=== PATIENT | male | born 1970 | race American Indian/Alaskan Native ===

== ENCOUNTER 2016-09-20 04:45 | Inpatient (IN) | payer SELFPAY ==
[2016-09-20] MEDS ORDERED: Sodium Chloride 0.9% 1,000 ML IV ONE ×2 (05:01→05:17)
[2016-09-20] MEDS ORDERED: Sodium Bicarbonate (8.4%) 50 Meq Syringe IVP STA ×3 (05:03→05:49)
[2016-09-20 05:11] LABS: ABG ALLEN TEST POS; ABG MECHANICAL RATE 20; ATERIAL BLOOD GAS PEEP 5; DRAW SITE RR
[2016-09-20 05:21] LABS: LYMPH # 3.7 K/uL (1.0-4.3); MONO # 0.4 K/uL (0.0-0.8); NRBC % 0.2 % (0.0-2.0)
[2016-09-20 05:26] LABS: RBC URINE 31 /hpf (0-3); URINE BACTERIA FEW (<OCC); URINE BILIRUBIN NEGATIVE (NEGATIVE); URINE BLOOD NEGATIVE (NEGATIVE); URINE COLOR Yellow (YELLOW); URINE GLUCOSE (UA) NORMAL (Normal); URINE KETONE NEGATIVE (NEGATIVE); URINE LEUKOCYTE ESTERASE NEG Leu/uL (Negative); URINE PROTEIN 2+ mg/dL (NEGATIVE); URINE UROBILINOGEN NORMAL mg/dL (0.2-1.0); WBC URINE 8 /hpf (0-5)
[2016-09-20 05:32] LABS: BASO # 0.1 K/uL (0.0-0.2); BASO % 0.6 % (0.0-2.0); EOS % 0.5 % (0.0-4.0); LYMPH % 40.3 % (20.0-40.0); MEAN CELL VOLUME 104.4 fL (80.0-94.0); MEAN CORPUSCULAR HEMOGLOBIN 31.3 pg (27.0-31.0); MEAN PLATELET VOLUME 8.6 fL (7.2-11.7); RED CELL DISTRIBUTION WIDTH 15.2 % (11.5-14.5); WHITE BLOOD COUNT 9.2 K/uL (4.8-10.8)
[2016-09-20 05:35] LABS: INR 1.1
--- NOTE | 2016-09-20 05:56 | CP.PCM.HP ---
<Raiza South DO - Last Filed: 09/20/16 07:07> History of Present Illness - History of Present Illness History of Present Illness: Patient is a Carroll Mireles brought into the ER after being found down in the stairwell of an apartment complex. Patient was found only wearing a pair of shorts and underwear. Per EMS report patient was found with heroin and a needle in his pocket. Patient was given narcan in the field. CPR was initiated and epinephrine was given. Patient had ROSC and was intubated in the field. Patient is currently intubated and non-responsive. Present on Admission - Present on Admission Any Indicators Present on Admission: No Review of Systems - Review of Systems Systems not reviewed;Unavailable: Intubated Past Patient History - Past Social History Smoking Status: Unknown If Ever Smoked - PSYCHIATRIC Hx Substance Use: No (unknown) Meds Allergies/Adverse Reactions: Allergies Allergy/AdvReac Type Severity Reaction Status Date / Time Unobtainable Allergy Verified 09/20/16 05:00 Physical Exam - Constitutional Additional comments: intubated on ventilator - Eye Exam Additional comments: pupils non reactive - Respiratory Exam Respiratory Exam: Rhonchi Additional comments: vent sounds throughout coarse breath sounds from upper airway - Cardiovascular Exam Cardiovascular Exam: REGULAR RHYTHM - GI/Abdominal Exam GI & Abdominal Exam: Soft. absent: Distended, Normal Bowel Sounds - Exam Additional comments: shipley catheter - Skin Skin Exam: Normal Color Results - Vital Signs Recent Vital Signs: Last Vital Signs Temp 91.8 F L 09/20/16 05:01 Pulse 64 09/20/16 04:48 Resp 20 09/20/16 05:36 BP 75/30 L 09/20/16 04:48 Pulse Ox 100 09/20/16 05:36 - Labs Result Diagrams: 09/20/16 05:15 09/20/16 06:04 Labs: Laboratory Results - last 24 hr 09/20/16 09/20/16 05:05 05:15 WBC 9.2 RBC 3.55 L Hgb 11.1 L Hct 37.0 MCV 104.4 H MCH 31.3 H MCHC 30.0 L RDW 15.2 H Plt Count 116 L MPV 8.6 Neut % (Auto) 54.6 Lymph % (Auto) 40.3 H Catron % (Auto) 4.0 Eos % (Auto) 0.5 Baso % (Auto) 0.6 Neut # 5.1 Lymph # 3.7 Catron # 0.4 Eos # 0.0 Baso # 0.1 PT 12.6 H INR 1.1 APTT 37 H Puncture Site Rr pCO2 85 H* pO2 151 H HCO3 8.5 L* ABG pH 6.83 L* ABG Total CO2 16.8 L ABG O2 Saturation 98.7 H ABG Base Excess -21.1 L Sukhi Test Pos ABG Potassium 4.9 A-a O2 Difference 456.0 Respiratory Index 3.0 Sodium 141.0 Chloride 111.0 H Glucose 112 H Lactate 13.8 H* Mechanical Rate 20 FiO2 100.0 Tidal Volume 500 PEEP 5 Crit Value Called To Dr pathak/stephanier Crit Value Called By Saqib cardona/rt Crit Value Read Back Y Blood Gas Notified Time 515 Arterial Blood Potassium 4.9 Urine Color Yellow Urine Clarity Hazy Urine pH 5.0 Ur Specific [place] 1.025 Urine Protein 2+ H Urine Glucose (UA) Normal Urine Ketones Negative Urine Blood Negative Urine Nitrate Negative Urine Bilirubin Negative Urine Urobilinogen Normal Ur Leukocyte Esterase Neg Urine WBC (Auto) 8 H Urine RBC (Auto) 31 H Urine Bacteria Few H Urine Sperm (Auto) Few H Urine Opiates Screen Positive Urine Methadone Screen Negative Ur Barbiturates Screen Negative Ur Phencyclidine Scrn Negative Ur Amphetamines Screen Negative U Benzodiazepines Scrn Negative U Oth Cocaine Metabols Positive U Cannabinoids Screen Negative Assessment & Plan - Assessment and Plan (Free Text) Assessment: Patient is s/p cardiac arrest with lactic acidosis management per ICU: start bicarb and levophed drip, check CT of head <Erasmo Pascal P - Last Filed: 09/23/16 20:26> Results - Vital Signs Recent Vital Signs: Last Vital Signs Temp 96.8 F L 09/23/16 16:00 Pulse 84 09/23/16 19:00 Resp 24 09/23/16 19:00 BP 112/64 09/23/16 18:57 Pulse Ox 100 09/23/16 19:00 - Labs Result Diagrams: 09/23/16 12:05 09/23/16 18:19 Labs: Laboratory Results - last 24 hr 09/23/16 09/23/16 09/23/16 00:21 06:29 06:34 WBC RBC Hgb Hct MCV MCH MCHC RDW Plt Count MPV Neut % (Auto) Lymph % (Auto) Catron % (Auto) Eos % (Auto) Baso % (Auto) Neut # Lymph # Catron # Eos # Baso # Sodium 140 140 Potassium 3.7 3.5 L Chloride 106 107 Carbon Dioxide 24 24 Anion Gap 14 13 BUN 50 H 49 H Creatinine 4.8 H 4.6 H Est GFR ( Amer) 16 17 Est GFR (Non-Af Amer) 13 14 Random Glucose 169 H 170 H Lactic Acid 1.2 1.2 Calcium 7.3 L 7.3 L Magnesium 1.7 Total Bilirubin 4.1 H 4.2 H AST 952 H D 742 H D ALT 2807 H 2516 H Alkaline Phosphatase 108 105 Troponin I 0.2910 H* 0.2500 H* Total Protein 5.4 L 5.2 L Albumin 2.7 L 2.5 L Globulin 2.8 2.7 Albumin/Globulin Ratio 1.0 0.9 L 09/23/16 09/23/16 09/23/16 12:01 12:05 18:19 WBC 11.8 H RBC 3.32 L Hgb 10.2 L D Hct 31.7 L MCV 95.4 H MCH 30.7 MCHC 32.2 L RDW 14.5 Plt Count 52 L MPV 8.9 Neut % (Auto) 84.7 H Lymph % (Auto) 11.0 L Catron % (Auto) 3.5 Eos % (Auto) 0.7 Baso % (Auto) 0.1 Neut # 10.0 H Lymph # 1.3 Catron # 0.4 Eos # 0.1 Baso # 0.0 Sodium 140 142 Potassium 3.3 L 3.3 L Chloride 107 110 H Carbon Dioxide 23 20 L Anion Gap 13 15 BUN 48 H 49 H Creatinine 4.4 H 4.0 H Est GFR ( Amer) 18 20 Est GFR (Non-Af Amer) 15 16 Random Glucose 168 H 151 H Lactic Acid 1.2 Calcium 7.3 L 7.2 L Magnesium Total Bilirubin 4.1 H 3.7 H AST 637 H 512 H ALT 2152 H 1816 H Alkaline Phosphatase 104 95 Troponin I Total Protein 5.2 L 5.0 L Albumin 2.5 L 2.4 L Globulin 2.7 2.7 Albumin/Globulin Ratio 0.9 L 0.9 L Attending/Attestation - Attestation I have personally seen and examined this patient.: Yes I have fully participated in the care of the patient.: Yes I have reviewed all pertinent clinical information: Yes
--- NOTE | 2016-09-20 05:57 | C.PDOC ---
History Of Present Illness Pt was found unresponsive in the hallway of an apartment building. Upon EMS arrival, a bystandard was performing CPR. EMS found pt in Asystole. After intubation, Epinephrine and Narcan, ROSC was achieved. Time Seen by Provider: 09/20/16 04:53 Chief Complaint (Nursing): Cardiac Arrest History Per: EMS Reason For Code Blue: Full Arrest Circumstances: Brought To ED By EMS Arrest Witnessed By: By-stander (?) CPR Initiated Prior To MD Arrival?: Yes Down-Time Before ACLS: Unknown Treatment Initiated Prior To MD Arrival: Yes: CPR, BVM Ventilations, Intubation , IVF, ACLS Medication Initiation, IV Access Medications Given Prior To MD Arrival: Yes: Epinephrine, Other (Narcan) - Initial Findings Mentation: Unresponsive Respirations: None (Assisted) Pulse: Weak Past Medical History Reviewed: Historical Data, Nursing Documentation, Vital Signs Vital Signs: Last Vital Signs Temp 91.8 F L 09/20/16 05:01 Pulse 86 09/20/16 06:01 Resp 20 09/20/16 06:01 BP 83/36 L 09/20/16 06:01 Pulse Ox 100 09/20/16 06:01 - Medical History Other PMH: Unknown Family History: States: Unknown Family Hx - Social History Hx Alcohol Use: No (unknown) Hx Substance Use: No (unknown) - Immunization History Hx Tetanus Toxoid Vaccination: No Hx Influenza Vaccination: No Hx Pneumococcal Vaccination: No Review Of Systems Review Of Systems: ROS cannot be obtained secondary to pt's inabilty to answer questions. Physical Exam - Physical Exam Appears: Other (Unresponsive) Skin: Dry Head: Atraumatic Eye(s): bilateral: Abnormal Pupil (fixed and dilated, but equal.) Neck: Normal ROM, No Step Off Deformity, Supple Chest: Symmetrical, No Deformity Cardiovascular: Rhythm Regular Respiratory: Normal Breath Sounds (equal with bagging) Gastrointestinal/Abdominal: Soft, No Distention Extremity: No Deformity Neurological/Psych: No Response To Commands Pain Response: No Response To Pain ED Course And Treatment - Laboratory Results Result Diagrams: 09/20/16 05:15 Lab Interpretation: Abnormal Interpretation Of Abnormal: Severe respiratory and metabolic acidosis. ECG: Interpreted By Me, Viewed By Me ECG Rhythm: Sinus Rhythm, 1st Degree HB, Nonspecific Changes ECG Interpretation: Abnormal Rate From EC O2 Sat by Pulse Oximetry: 100 (on 100% O2 vent.) - Radiology CXR: Interpreted by Me, Viewed By Me CXR Interpretation: Yes: Other (ETT in place but needs to be pulled back 3cm. ) . No: Pnemothorax - Physician Consult Information Physician Contacted: Ward Nixon (ICU) Outcome Of Conversation: He accepted pt to ICU. Progress - Interventions Interventions:: Observation, Intravenous fluid, Oxygen - Medications Administered Intravenous: Other (Sodium Bicarb.) - Patient Status Patient status: Critical - Critical Care Citical Care: Excluding Proc Time Critical Care Time: 60 minutes - Continuity of Care Discussed patient case with:: ED Nurse, On-call PMD-pt unassigned Discussed pt. case with security sales consultant/specialty: Pulmonary/Crit. Care - Patient Plan Patient Plan: Admission, ICU Disposition Discussed With : Erasmo Pascal Comment: He accepted pt on hospitalist service. Doctor Will See Patient In The: Hospital - Disposition Disposition: HOSPITALIZED Disposition Time: 06:06 Condition: CRITICAL - Clinical Impression Clinical Impression: Cardiopulmonary arrest with successful resuscitation
[2016-09-20] MEDS ORDERED: Sodium Bicarbonate 8.4% 150 MEQ in Dextrose 5% In Water 1,000 ML IV STA (05:58)
[2016-09-20 06:20] LABS: CHLORIDE 103 mmol/L (98-107)
[2016-09-20 06:21] LABS: SODIUM 139 mmol/L (132-148)
[2016-09-20 06:23] LABS: ALB/GLOB RATIO 1.1 (1.0-2.1); ALKALINE PHOSPHATASE 72 U/L (38-126); ALT/SGPT 756 U/L (21-72); AST/SGOT 679 U/L (17-59); BILIRUBIN,TOTAL 0.4 mg/dL (0.2-1.3); BLOOD UREA NITROGEN 10 mg/dL (9-20); CARBON DIOXIDE 15 mmol/L (22-30); GFR AFRICAN-AMERICAN 51; GLUCOSE,RANDOM 103 mg/dL (75-110); TOTAL PROTEIN 5.2 g/dL (6.3-8.3)
[2016-09-20 06:24] LABS: ALCOHOL SERUM < 10 mg/dl (0-10); MAGNESIUM 2.8 mg/dL (1.6-2.3)
--- NOTE | 2016-09-20 06:27 | CP.PCM.CON ---
History of Present Illness - History of Present Illness History of Present Illness: patient is a 40-year-old male underwent medical history, admitted to the emergency room after sustaining a cardiac arrest, this is stated in the field, unknown cause, unclear etiology. Suspected drug overdose him a initially responded with the Narcaine. Patient now intubated. Unresponsive. Hypotensive, hypoxic as well as acidosis. Very highly elevated lactic acidosis. Multiple other history unavailable Review of Systems - Review of Systems All systems: reviewed and no additional remarkable complaints except Review of Systems: Patient is unresponsive intubated in the field. Further history is unavailable Past Patient History - Tetanus Immunizations Tetanus Immunization: Unknown - Past Social History Smoking Status: Unknown If Ever Smoked - PSYCHIATRIC Hx Substance Use: No (unknown) Meds Allergies/Adverse Reactions: Allergies Allergy/AdvReac Type Severity Reaction Status Date / Time Unobtainable Allergy Verified 09/20/16 05:00 - Medications Medications: Current Medications Norepinephrine Bitartrate 4 mg (/ Sodium Chloride) 254 mls @ 15.24 mls/hr IV .[id number] PRN; Protocol; 4 MCG/MIN PRN Reason: TITRATE PER MD ORDER Last Admin: 09/20/16 06:08 Dose: 15.24 mls/hr Sodium Bicarbonate 150 meq/ (Dextrose) 1,150 mls @ 1,000 mls/hr IV .[id number] STA Stop: 09/20/16 07:06 Physical Exam - Constitutional Additional comments: Patient is unresponsive, comatose. On ventilator. Not moving Results - Vital Signs Recent Vital Signs: Last Vital Signs Temp 91.8 F L 09/20/16 05:01 Pulse 86 09/20/16 06:01 Resp 20 09/20/16 06:01 BP 83/36 L 09/20/16 06:01 Pulse Ox 100 09/20/16 06:07 - Labs Result Diagrams: 09/20/16 05:15 Assessment & Plan (1) Cardiopulmonary arrest with successful resuscitation Assessment and Plan: Cardiomegaly arrest. Possible anoxic encephalopathy. Secondary to likely drug overdose. On ventilator. Severe acidosis, multiorgan failure. Very poor prognosis Admitted to ICU, resuscitation, possible hypothermia. Will follow the patient Status: Acute (2) Drug overdose Status: Acute
[2016-09-20] MEDS ORDERED: Atropine 0.4 mg/ml Inj (1 mL) IV STA (06:59)
[2016-09-20 07:00] LABS: POTASSIUM 6.7 mmol/L (3.6-5.2)
[2016-09-20] MEDS ORDERED: Calcium Gluconate 4.65 mEq/10 ml Inj IVP ONE ×2 (07:19→10:25)
[2016-09-20] MEDS ORDERED: (Novolin R) Insulin Human Regular 100 units/ml vial IV ONE ×2 (07:19→10:25)
[2016-09-20] MEDS ORDERED: Dextrose 50% SYRINGE Inj (50 ml) IV STA ×2 (07:19→10:25)
[2016-09-20 07:22] LABS: ABG MECHANICAL RATE 24; ATERIAL BLOOD GAS PEEP 5
[2016-09-20] MEDS: Sodium Chloride 0.9% 1,000 ML IV SCH ×2 (07:30→16:41)
--- NOTE | 2016-09-20 08:59 | RAD ---
HISTORY: post intubation bed 12 COMPARISON: No prior. FINDINGS: LUNGS: Endotracheal tube extending to the level of the najma. Retraction approximately 2 centimeter is recommended. NG tube extending into the stomach. Venous congestion. Additional probable external tubing and/or device projecting over the lower coco thoraces. PLEURA: As above. CARDIOVASCULAR: Normal. OSSEOUS STRUCTURES: No significant abnormalities. VISUALIZED UPPER ABDOMEN: Normal. OTHER FINDINGS: None. IMPRESSION: Endotracheal tube extending to the level of the najma. Retraction approximately 2 centimeter is recommended. NG tube extending into the stomach. Venous congestion. Additional probable external tubing and/or device projecting over the lower coco thoraces.
--- NOTE | 2016-09-20 09:15 | RAD ---
HISTORY: ETT pulled back 3cm. COMPARISON: Chest x-ray performed 09/20/16 TECHNIQUE: Chest, one view. FINDINGS: Examination limited by habitus, hypoinflation, and patient obliquity. External defibrillator pads project over the lingula/left lower lobe limiting evaluation. Endotracheal tube terminates approximately 5.3 cm above the najma. LUNGS: Mild venous congestion. No focal consolidation. Please note that chest x-ray has limited sensitivity for the detection of pulmonary masses. PLEURA: No significant pleural effusion identified. No definite pneumothorax . CARDIOVASCULAR: The cardiomediastinal silhouette appears enlarged. OSSEOUS STRUCTURES: No acute osseous abnormality identified. VISUALIZED UPPER ABDOMEN: Unremarkable. OTHER FINDINGS: None. IMPRESSION: External defibrillator pads project over the lingula/left lower lobe limiting evaluation. Endotracheal tube terminates 5.3 cm above the najma. Enlargement of the cardiomediastinal silhouette. Mild venous congestion.
--- NOTE | 2016-09-20 10:17 | CT ---
PROCEDURE: CT scan brain 09/20/2016 HISTORY: Status post cardiac arrest. Unresponsive. COMPARISON: No prior study available for comparison. Dated TECHNIQUE: Axial l computed tomography images were obtained through the head/brain without intravenous contrast. This CT exam was performed using one or more of the following dose reduction techniques: Automated exposure control, adjustment of the mA and/or kV according to patient size, and/or use of iterative reconstruction technique. Total exam DLP = 981.84 mGy-cm. Findings: Findings: The current study reveals subarachnoid hemorrhage within the basilar cisterns extending peripherally into the lateral and sylvian fissures and perimesencephalic cistern. Subarachnoid hemorrhage is also noted along interhemispheric fissures and tentorium. The small elliptical shaped density likely representing some localized subarachnoid hemorrhage within the anterior aspect of the suprasellar cistern extending into the anterior margin of the interhemispheric fissure however the possibility of a small anterior communicating artery aneurysm must be excluded. Followup MRI/ MRA of the brain recommended. There is diffuse cerebral edema with effacement of cerebral sulci and loss of corticomedullary distinction. Vague areas of low attenuation in the lateral basal ganglia could represent sequela of significant hypoxic injury. . Diffuse cerebral edema also seen involving the posterior fossa structures. . Questionable a tonsillar herniation There is a small left inferior frontal scalp contusion. Impression: Diffuse subarachnoid hemorrhage with small localized clot or possibly small aneurysm in the region of the anterior communicating artery. Diffuse significant cerebral edema with effacement of sulci and compression of the ventricles. Cerebral edema also affects the posterior fossa structures with questionable tonsillar herniation. There may also be early significant hypoxic changes within the lateral basal nuclei bilaterally. . These findings were discussed with ICU resident Dr. Weinstein at approximately 10:10 a.m. with written down and read back verification. Note made better with of a in situ ETT and and possibly NGT on the lateral quirk sander films.
[2016-09-20 12:30] LABS: BASO % 0.2 % (0.0-2.0); HEMATOCRIT 39.2 % (35.0-51.0); LYMPH # 0.4 K/uL (1.0-4.3); LYMPH % 3.6 % (20.0-40.0); MEAN PLATELET VOLUME 7.8 fL (7.2-11.7); MONO # 0.3 K/uL (0.0-0.8); PLATELET COUNT 118 K/uL (130-400); RED CELL DISTRIBUTION WIDTH 13.9 % (11.5-14.5); WHITE BLOOD COUNT 11.1 K/uL (4.8-10.8)
[2016-09-20 12:38] LABS: POTASSIUM 3.4 mmol/L (3.6-5.2)
[2016-09-20 12:40] LABS: ALB/GLOB RATIO 1.2 (1.0-2.1); BILIRUBIN,TOTAL 0.6 mg/dL (0.2-1.3); TOTAL PROTEIN 6.3 g/dL (6.3-8.3)
[2016-09-20 12:41] LABS: CALCIUM 7.2 mg/dl (8.6-10.4); MAGNESIUM 2.3 mg/dL (1.6-2.3); PHOSPHOROUS 3.7 mg/dL (2.5-4.5)
[2016-09-20 12:53] LABS: MEAN CELL VOLUME 96.9 fL (80.0-94.0)
[2016-09-20] MEDS: White Petrolatum/Mineral Oil Ophth Oint(3.5 gm) OU SCH ×3 (13:00→20:12)
[2016-09-20 13:16] LABS: TOTAL CELLS COUNTED 100
[2016-09-20 13:20] LABS: NEUTROPHIL 75 % (50-75)
--- NOTE | 2016-09-20 14:12 | CP.CCUPN ---
<Margaret Weinstein - Last Filed: 09/20/16 18:18> CCU Subjective - Physician Review Subjective (Free Text): 46 M with past medical history of opiates, cocaine, and cannabis use disorder who was admitted to the detox unit in 07/19. Patient was found unresponsive ( down time unknown) by his ex- shortly before 5 am this morning. EMS was called. Patient was found in asystole. Patient was intubated, given epinephrine , and Narcan out in the field and ROSC was achieved prior to arrival to the ED. Patient was accepted to the ICU. Upon arrival in the ICU, ABG revealed severe respiratory and metabolic acidosis, EK with 1st degree HB, ETT in place, no pneumothorax. Patient was unresponsive, pupils were fixed and dilated (equal) , no corneal reflex, no gag reflex, no spontaneous respirations, patient is not breathing over the vent. Head CT showed: Diffuse subarachnoid hemorrhage with small localized clot or possibly small aneurysm in the region of the anterior communicating artery. Diffuse significant cerebral edema with effacement of sulci and compression of the ventricles. Cerebral edema also affects the posterior fossa structures with questionable tonsillar herniation. There may also be early significant hypoxic changes within the lateral basal nuclei bilaterally. Neurology was consulted: Dr. Alexis - Cerebral Flow study ordered revealed: Bolus injection of technetium DTPA is of diagnostic quality. Flow was not evident above the brainstem. Findings of absent radionuclide confirmed on blood pool images. IMPRESSION:Limited assessment based on absence of delayed images. No supra tentorial blood flow was documented. Neurosurgery consulted - Dr. Farrell - no intervention at this time. Palliative care was consulted, spoke with family, Goals of care will depend of brain flow test findings. Palliative care will follow up the patient and meet with his mother tomorrow who is traveling from [place] to offer support. [facility] contacted. PMHx: none as per previous records and ex- PSHx: none as per previous records and ex- Meds: none as per previous records and ex- All: NKDA as per previous records SHx: heroin, cocaine, and klonopin as per previous records FHx: Unknown CCU Objective - Vital Signs / Intake & Output Vital Signs (Last 4 hours): Vital Signs Pulse Resp BP Pulse Ox 09/20/16 13:25 80 24 99/64 L 100 09/20/16 13:09 78 24 82/52 L 100 09/20/16 13:07 77 24 76/46 L 100 09/20/16 13:00 78 24 100 09/20/16 12:56 78 24 77/44 L 100 09/20/16 12:25 80 23 97/56 L 09/20/16 12:00 83 24 09/20/16 11:55 84 24 103/60 09/20/16 11:25 81 24 96/50 L 09/20/16 11:00 76 24 09/20/16 10:56 77 24 118/65 09/20/16 10:25 72 14 89/50 L Intake and Output (Last 8hrs): Intake & Output 09/19/16 09/20/16 09/20/16 22:59 06:59 14:59 Intake Total 1216.3 Output Total 3150 Balance -1933.7 Intake: Intake, IV Amount 1216.3 Left Femoral 750 Left Proximal Port 400 Left Medial Port 63.6 Left Distal Port 2.7 Output: Urine 3150 Urethral (Price) 3150 Other: Voiding Method Indwelling Catheter # Bowel Movements 3 - Physical Exam Narrative Physical Exam (Free Text): Patient is unresponsive. Comatose, GCS = 2, vented, pupils fixed, dilated, no corneal or gag reflex. Head: Positive for: Laceration Pupils: Positive for: Non-Reactive - Medications Active Medications: Active Medications Generic Name Dose Route Start Last Admin Trade Name Freq PRN Reason Stop Dose Admin Artificial Tears 0 gm 09/20/16 12:00 Lacri-Lube OU Q4 ASTER Norepinephrine Bitartrate 4 mg 254 mls @ 15.24 mls/hr 09/20/16 05:50 09/20/16 06:08 / Sodium Chloride IV 15.24 mls/hr .[id number] PRN Administration TITRATE PER MD ORDER Protocol 4 MCG/MIN Sodium Chloride 1,000 mls @ 100 mls/hr 09/20/16 08:00 09/20/16 07:30 Sodium Chloride 0.9% IV 100 mls/hr .Q10H ASTER Administration Propofol 100 mls @ 2.722 mls/hr 09/20/16 09:12 09/20/16 10:20 Diprivan IV 2.722 mls/hr .Q24H PRN Administration TITRATE PER MD ORDER Protocol 5 MCG/KG/MIN Norepinephrine Bitartrate 8 mg 258 mls @ 7.74 mls/hr 09/20/16 14:02 / Sodium Chloride IV .Q24H PRN TITRATE PER MD ORDER Protocol 4 MCG/MIN Pantoprazole Sodium 40 mg 09/20/16 14:00 Protonix Inj IVP DAILY ASTER - Patient Studies Lab Studies: Lab Studies 09/20/16 09/20/16 09/20/16 Range/Units 12:22 07:19 07:01 WBC 11.1 H (4.8-10.8) K/uL RBC 4.05 L (4.40-5.90) Mil/uL Hgb 12.6 (12.0-18.0) g/dL Hct 39.2 (35.0-51.0) % MCV 96.9 H D (80.0-94.0) fL MCH 31.0 (27.0-31.0) pg MCHC 32.0 L (33.0-37.0) g/dL RDW 13.9 (11.5-14.5) % Plt Count 118 L (130-400) K/uL MPV 7.8 (7.2-11.7) fL Neut % (Auto) 93.2 H (50.0-75.0) % Lymph % (Auto) 3.6 L (20.0-40.0) % Holt % (Auto) 3.0 (0.0-10.0) % Eos % (Auto) 0.0 (0.0-4.0) % Baso % (Auto) 0.2 (0.0-2.0) % Neut # 10.3 H (1.8-7.0) K/uL Lymph # 0.4 L (1.0-4.3) K/uL Holt # 0.3 (0.0-0.8) K/uL Eos # 0.0 (0.0-0.7) K/uL Baso # 0.0 (0.0-0.2) K/uL Neutrophils % (Manual) 75 (50-75) % Band Neutrophils % 21 H* (0-2) % Lymphocytes % (Manual) 3 L (20-40) % Monocytes % (Manual) 1 (0-10) % Platelet Estimate Slightly decreased L (NORMAL) Giorgi Cells Slight Puncture Site Unknown pCO2 47 H (35-45) mm/Hg pO2 161 H (80-100) mm/Hg HCO3 14.5 L (21-28) mmol/L ABG pH 7.13 L* (7.35-7.45) ABG Total CO2 17.0 L (22-28) mmol/L ABG O2 Saturation 98.5 H (95-98) % ABG Base Excess -13.4 L (-2.0-3.0) mmol/L Sukhi Test Na A-a O2 Difference 493.0 mm/Hg Respiratory Index 3.1 Mechanical Rate 24 FiO2 100.0 % Tidal Volume 500 PEEP 5 Crit Value Called To Dr. albert Crit Value Called By Bry yadav Crit Value Read Back Y Blood Gas Notified Time 709 Sodium 141 (132-148) mmol/L Potassium 3.4 L (3.6-5.2) mmol/L Chloride 102 (98-107) mmol/L Carbon Dioxide 24 (22-30) mmol/L Anion Gap 19 (10-20) BUN 17 (9-20) mg/dL Creatinine 1.7 H (0.8-1.5) MG/DL Est GFR ( Amer) 53 Est GFR (Non-Af Amer) 44 POC Glucose (mg/dL) 199 H (65-110) mg/dL Random Glucose 233 H (75-110) mg/dL Calcium 7.2 L (8.6-10.4) mg/dl Phosphorus 3.7 (2.5-4.5) mg/dL Magnesium 2.3 (1.6-2.3) mg/dL Total Bilirubin 0.6 (0.2-1.3) mg/dL AST 1872 H (17-59) U/L ALT 1792 H (21-72) U/L Alkaline Phosphatase 124 (38-126) U/L Total Protein 6.3 (6.3-8.3) g/dL Albumin 3.4 L D (3.5-5.0) g/dL Globulin 2.8 (2.2-3.9) gm/dL Albumin/Globulin Ratio 1.2 (1.0-2.1) Laboratory Results - last 24 hr 09/20/16 09/20/16 09/20/16 07:01 07:19 12:22 WBC 11.1 H RBC 4.05 L Hgb 12.6 Hct 39.2 MCV 96.9 H D MCH 31.0 MCHC 32.0 L RDW 13.9 Plt Count 118 L MPV 7.8 Neut % (Auto) 93.2 H Lymph % (Auto) 3.6 L Holt % (Auto) 3.0 Eos % (Auto) 0.0 Baso % (Auto) 0.2 Neut # 10.3 H Lymph # 0.4 L Holt # 0.3 Eos # 0.0 Baso # 0.0 Neutrophils % (Manual) 75 Band Neutrophils % 21 H* Lymphocytes % (Manual) 3 L Monocytes % (Manual) 1 Platelet Estimate Slightly decreased L Giorgi Cells Slight Puncture Site Unknown pCO2 47 H pO2 161 H HCO3 14.5 L ABG pH 7.13 L* ABG Total CO2 17.0 L ABG O2 Saturation 98.5 H ABG Base Excess -13.4 L Sukhi Test Na A-a O2 Difference 493.0 Respiratory Index 3.1 Mechanical Rate 24 FiO2 100.0 Tidal Volume 500 PEEP 5 Crit Value Called To Dr. albert Crit Value Called By Bry yadav Crit Value Read Back Y Blood Gas Notified Time 709 Sodium 141 Potassium 3.4 L Chloride 102 Carbon Dioxide 24 Anion Gap 19 BUN 17 Creatinine 1.7 H Est GFR ( Amer) 53 Est GFR (Non-Af Amer) 44 POC Glucose (mg/dL) 199 H Random Glucose 233 H Calcium 7.2 L Phosphorus 3.7 Magnesium 2.3 Total Bilirubin 0.6 AST 1872 H ALT 1792 H Alkaline Phosphatase 124 Total Protein 6.3 Albumin 3.4 L D Globulin 2.8 Albumin/Globulin Ratio 1.2 Assessment/Plan - Assessment and Plan (Free Text) Assessment: 46M with PMHx of heroine abuse found unresponsive s/p cardiac arrest found to have subarachnoid hemorrhage. Plan: S/P cardiopulmonary arrest * Upon arrival in the ICU, patient had a seizure- he was given ativan and started on a propofol drip. ABG revealed severe respiratory and metabolic acidosis, EK with 1st degree HB, ETT in place, no pneumothorax. Patient was unresponsive, pupils were fixed and dilated (equal), no corneal reflex, no gag reflex, no spontaneous respirations, patient is not breathing over the vent. * Was administered calcium gluconate, D50, and insulin for hyperkalemia. * Currently on Levophed and Vasopression. * Head CT showed: Diffuse subarachnoid hemorrhage with small localized clot or possibly small aneurysm in the region of the anterior communicating artery. Diffuse significant cerebral edema with effacement of sulci and compression of the ventricles. Cerebral edema also affects the posterior fossa structures with questionable tonsillar herniation. There may also be early significant hypoxic changes within the lateral basal nuclei bilaterally. * Hypothermia protocol was contraindicated due to subarachnoid hemorrhage * Neurology was consulted: Dr. Alexis - Cerebral Flow study ordered revealed: Bolus injection of technetium DTPA is of diagnostic quality. Flow was not evident above the brainstem. Findings of absent radionuclide confirmed on blood pool images. IMPRESSION:Limited assessment based on absence of delayed images. No supra tentorial blood flow was documented. Neurosurgery consulted - Dr. Farrell - no intervention at this time. * Palliative care was consulted, spoke with family, Goals of care will depend of brain flow test findings. Palliative care will follow up the patient and meet with his mother tomorrow who is traveling from [place] to offer support. * [facility] contacted. * Palliative care consulted * Currently in DI- given DDVAP 180 mcg, NS increased to 200 cc/hr. DW Js Joseph DO, PGY-1 <Abdirizak Valdez - Last Filed: 09/20/16 18:52> CCU Objective - Vital Signs / Intake & Output Vital Signs (Last 4 hours): Vital Signs Temp Pulse Resp BP Pulse Ox 09/20/16 18:01 83 24 121/85 100 09/20/16 18:00 93.2 F L 83 24 100 09/20/16 17:51 83 24 121/86 100 09/20/16 17:41 84 24 117/85 100 09/20/16 17:31 87 24 112/81 100 09/20/16 17:21 87 24 119/86 100 09/20/16 17:11 89 24 122/90 100 09/20/16 17:01 95 H 24 99 09/20/16 17:00 95 H 24 99 09/20/16 16:51 95 H 24 100 09/20/16 16:41 94 H 24 100 09/20/16 16:31 93 H 24 100 09/20/16 16:30 89 24 92/64 L 100 09/20/16 16:25 87 24 92/64 L 100 09/20/16 16:23 85 24 82/59 L 100 09/20/16 16:20 81 99 09/20/16 15:50 98 H 24 66/34 L 95 09/20/16 15:00 91 H 24 100 09/20/16 14:55 92 H 24 111/74 100 Intake and Output (Last 8hrs): Intake & Output 09/20/16 09/20/16 09/20/16 06:59 14:59 22:59 Intake Total 2026.3 258.7 Output Total 3520 275 Balance -1493.7 -16.3 Weight 198 lb 6.656 oz Intake: Intake, IV Amount 2026.3 258.7 Left Femoral 900 Left Proximal Port 800 200 Left Medial Port 323.6 56.3 Left Distal Port 2.7 2.4 Output: Urine 3520 275 Urethral (Price) 3520 275 Other: Voiding Method Indwelling Catheter # Bowel Movements 3 - Medications Active Medications: Active Medications Generic Name Dose Route Start Last Admin Trade Name Freq PRN Reason Stop Dose Admin Artificial Tears 0 gm 09/20/16 12:00 09/20/16 16:39 Lacri-Lube OU 3.5 gm Q4 ASTER Administration Propofol 100 mls @ 2.722 mls/hr 09/20/16 09:12 09/20/16 11:30 Diprivan IV 0 mcg/kg/min .Q24H PRN Titration TITRATE PER MD ORDER Protocol 5 MCG/KG/MIN Norepinephrine Bitartrate 8 mg 258 mls @ 7.74 mls/hr 09/20/16 14:02 09/20/16 16 :30 / Sodium Chloride IV 24.23 mcg/min .Q24H PRN Titration TITRATE PER MD ORDER Protocol 4 MCG/MIN Vasopressin 40 units/ Sodium 40 mls @ 0.6 mls/hr 09/20/16 16:30 09/20/16 16:30 Chloride IV 0.6 mls/hr .Q24H ASTER Administration Protocol 0.01 UNITS/MIN Sodium Chloride 1,000 mls @ 200 mls/hr 09/20/16 18:11 09/20/16 18:28 Sodium Chloride 0.9% IV Not Given .Q5H ASTER Pantoprazole Sodium 40 mg 09/20/16 14:00 09/20/16 14:24 Protonix Inj IVP 40 mg DAILY ASTER Administration - Patient Studies Lab Studies: Lab Studies 09/20/16 09/20/16 09/20/16 Range/Units 14:57 14:56 12:22 WBC 11.1 H (4.8-10.8) K/uL RBC 4.05 L (4.40-5.90) Mil/uL Hgb 12.6 (12.0-18.0) g/dL Hct 39.2 (35.0-51.0) % MCV 96.9 H D (80.0-94.0) fL MCH 31.0 (27.0-31.0) pg MCHC 32.0 L (33.0-37.0) g/dL RDW 13.9 (11.5-14.5) % Plt Count 118 L (130-400) K/uL MPV 7.8 (7.2-11.7) fL Neut % (Auto) 93.2 H (50.0-75.0) % Lymph % (Auto) 3.6 L (20.0-40.0) % Holt % (Auto) 3.0 (0.0-10.0) % Eos % (Auto) 0.0 (0.0-4.0) % Baso % (Auto) 0.2 (0.0-2.0) % Neut # 10.3 H (1.8-7.0) K/uL Lymph # 0.4 L (1.0-4.3) K/uL Holt # 0.3 (0.0-0.8) K/uL Eos # 0.0 (0.0-0.7) K/uL Baso # 0.0 (0.0-0.2) K/uL Neutrophils % (Manual) 75 (50-75) % Band Neutrophils % 21 H* (0-2) % Lymphocytes % (Manual) 3 L (20-40) % Monocytes % (Manual) 1 (0-10) % Platelet Estimate Slightly decreased L (NORMAL) Giorgi Cells Slight Puncture Site pCO2 (35-45) mm/Hg pO2 34 (30-55) mm/Hg HCO3 (21-28) mmol/L ABG pH (7.35-7.45) ABG Total CO2 (22-28) mmol/L ABG O2 Saturation (95-98) % ABG Base Excess (-2.0-3.0) mmol/L Sukhi Test VBG pH 7.38 (7.32-7.43) VBG pCO2 52 (40-60) mmHg VBG HCO3 27.5 mmol/L VBG Total CO2 32.4 H (22-28) mmol/L VBG O2 Sat (Calc) 64.8 (40-65) % VBG Base Excess 4.4 H (0.0-2.0) mmol/L VBG Potassium 3.7 (3.6-5.2) mmol/L A-a O2 Difference mm/Hg Respiratory Index Sodium 146.0 141 (132-148) mmol/l Chloride 108.0 H 102 (98-107) mmol/L Glucose 151 H (75-110) mg/dl Lactate 4.7 H* (0.7-2.1) mmol/L Mechanical Rate FiO2 100.0 % Tidal Volume PEEP 5 Crit Value Called To Dr. miramontes Crit Value Called By Bry yadav Crit Value Read Back Y Blood Gas Notified Time 1500 Potassium 3.4 L (3.6-5.2) mmol/L Carbon Dioxide 24 (22-30) mmol/L Anion Gap 19 (10-20) BUN 17 (9-20) mg/dL Creatinine 1.7 H (0.8-1.5) MG/DL Est GFR ( Amer) 53 Est GFR (Non-Af Amer) 44 POC Glucose (mg/dL) (65-110) mg/dL Random Glucose 233 H (75-110) mg/dL Hemoglobin A1c 6.6 H (4.2-6.5) % Calcium 7.2 L (8.6-10.4) mg/dl Phosphorus 3.7 (2.5-4.5) mg/dL Magnesium 2.3 (1.6-2.3) mg/dL Total Bilirubin 0.6 (0.2-1.3) mg/dL AST 1872 H (17-59) U/L ALT 1792 H (21-72) U/L Alkaline Phosphatase 124 (38-126) U/L Total Protein 6.3 (6.3-8.3) g/dL Albumin 3.4 L D (3.5-5.0) g/dL Globulin 2.8 (2.2-3.9) gm/dL Albumin/Globulin Ratio 1.2 (1.0-2.1) Venous Blood Potassium 3.7 (3.6-5.2) mmol/L 09/20/16 09/20/16 Range/Units 07:19 07:01 WBC (4.8-10.8) K/uL RBC (4.40-5.90) Mil/uL Hgb (12.0-18.0) g/dL Hct (35.0-51.0) % MCV (80.0-94.0) fL MCH (27.0-31.0) pg MCHC (33.0-37.0) g/dL RDW (11.5-14.5) % Plt Count (130-400) K/uL MPV (7.2-11.7) fL Neut % (Auto) (50.0-75.0) % Lymph % (Auto) (20.0-40.0) % Holt % (Auto) (0.0-10.0) % Eos % (Auto) (0.0-4.0) % Baso % (Auto) (0.0-2.0) % Neut # (1.8-7.0) K/uL Lymph # (1.0-4.3) K/uL Holt # (0.0-0.8) K/uL Eos # (0.0-0.7) K/uL Baso # (0.0-0.2) K/uL Neutrophils % (Manual) (50-75) % Band Neutrophils % (0-2) % Lymphocytes % (Manual) (20-40) % Monocytes % (Manual) (0-10) % Platelet Estimate (NORMAL) [place] Cells Puncture Site Unknown pCO2 47 H (35-45) mm/Hg pO2 161 H (30-55) mm/Hg HCO3 14.5 L (21-28) mmol/L ABG pH 7.13 L* (7.35-7.45) ABG Total CO2 17.0 L (22-28) mmol/L ABG O2 Saturation 98.5 H (95-98) % ABG Base Excess -13.4 L (-2.0-3.0) mmol/L Sukhi Test Na VBG pH (7.32-7.43) VBG pCO2 (40-60) mmHg VBG HCO3 mmol/L VBG Total CO2 (22-28) mmol/L VBG O2 Sat (Calc) (40-65) % VBG Base Excess (0.0-2.0) mmol/L VBG Potassium (3.6-5.2) mmol/L A-a O2 Difference 493.0 mm/Hg Respiratory Index 3.1 Sodium (132-148) mmol/l Chloride (98-107) mmol/L Glucose (75-110) mg/dl Lactate (0.7-2.1) mmol/L Mechanical Rate 24 FiO2 100.0 % Tidal Volume 500 PEEP 5 Crit Value Called To Dr. albert Crit Value Called By Bry yadav Crit Value Read Back Y Blood Gas Notified Time 709 Potassium (3.6-5.2) mmol/L Carbon Dioxide (22-30) mmol/L Anion Gap (10-20) BUN (9-20) mg/dL Creatinine (0.8-1.5) MG/DL Est GFR ( Amer) Est GFR (Non-Af Amer) POC Glucose (mg/dL) 199 H (65-110) mg/dL Random Glucose (75-110) mg/dL Hemoglobin A1c (4.2-6.5) % Calcium (8.6-10.4) mg/dl Phosphorus (2.5-4.5) mg/dL Magnesium (1.6-2.3) mg/dL Total Bilirubin (0.2-1.3) mg/dL AST (17-59) U/L ALT (21-72) U/L Alkaline Phosphatase (38-126) U/L Total Protein (6.3-8.3) g/dL Albumin (3.5-5.0) g/dL Globulin (2.2-3.9) gm/dL Albumin/Globulin Ratio (1.0-2.1) Venous Blood Potassium (3.6-5.2) mmol/L Laboratory Results - last 24 hr 09/20/16 09/20/16 09/20/16 07:01 07:19 12:22 WBC 11.1 H RBC 4.05 L Hgb 12.6 Hct 39.2 MCV 96.9 H D MCH 31.0 MCHC 32.0 L RDW 13.9 Plt Count 118 L MPV 7.8 Neut % (Auto) 93.2 H Lymph % (Auto) 3.6 L Holt % (Auto) 3.0 Eos % (Auto) 0.0 Baso % (Auto) 0.2 Neut # 10.3 H Lymph # 0.4 L Holt # 0.3 Eos # 0.0 Baso # 0.0 Neutrophils % (Manual) 75 Band Neutrophils % 21 H* Lymphocytes % (Manual) 3 L Monocytes % (Manual) 1 Platelet Estimate Slightly decreased L Giorgi Cells Slight Puncture Site Unknown pCO2 47 H pO2 161 H HCO3 14.5 L ABG pH 7.13 L* ABG Total CO2 17.0 L ABG O2 Saturation 98.5 H ABG Base Excess -13.4 L Sukhi Test Na VBG pH VBG pCO2 VBG HCO3 VBG Total CO2 VBG O2 Sat (Calc) VBG Base Excess VBG Potassium A-a O2 Difference 493.0 Respiratory Index 3.1 Glucose Lactate Mechanical Rate 24 FiO2 100.0 Tidal Volume 500 PEEP 5 Crit Value Called To Dr. albert Crit Value Called By Bry yadav Crit Value Read Back Y Blood Gas Notified Time 709 Sodium 141 Potassium 3.4 L Chloride 102 Carbon Dioxide 24 Anion Gap 19 BUN 17 Creatinine 1.7 H Est GFR ( Amer) 53 Est GFR (Non-Af Amer) 44 POC Glucose (mg/dL) 199 H Random Glucose 233 H Hemoglobin A1c Calcium 7.2 L Phosphorus 3.7 Magnesium 2.3 Total Bilirubin 0.6 AST 1872 H ALT 1792 H Alkaline Phosphatase 124 Total Protein 6.3 Albumin 3.4 L D Globulin 2.8 Albumin/Globulin Ratio 1.2 Venous Blood Potassium 09/20/16 09/20/16 14:56 14:57 WBC RBC Hgb Hct MCV MCH MCHC RDW Plt Count MPV Neut % (Auto) Lymph % (Auto) Holt % (Auto) Eos % (Auto) Baso % (Auto) Neut # Lymph # Holt # Eos # Baso # Neutrophils % (Manual) Band Neutrophils % Lymphocytes % (Manual) Monocytes % (Manual) Platelet Estimate Giorgi Cells Puncture Site pCO2 pO2 34 HCO3 ABG pH ABG Total CO2 ABG O2 Saturation ABG Base Excess Sukhi Test VBG pH 7.38 VBG pCO2 52 VBG HCO3 27.5 VBG Total CO2 32.4 H VBG O2 Sat (Calc) 64.8 VBG Base Excess 4.4 H VBG Potassium 3.7 A-a O2 Difference Respiratory Index Glucose 151 H Lactate 4.7 H* Mechanical Rate FiO2 100.0 Tidal Volume PEEP 5 Crit Value Called To Dr. miramontes Crit Value Called By Bry yadav Crit Value Read Back Y Blood Gas Notified Time 1500 Sodium 146.0 Potassium Chloride 108.0 H Carbon Dioxide Anion Gap BUN Creatinine Est GFR ( Amer) Est GFR (Non-Af Amer) POC Glucose (mg/dL) Random Glucose Hemoglobin A1c 6.6 H Calcium Phosphorus Magnesium Total Bilirubin AST ALT Alkaline Phosphatase Total Protein Albumin Globulin Albumin/Globulin Ratio Venous Blood Potassium 3.7 Attending/Attestation - Attestation I have personally seen and examined this patient.: Yes I have fully participated in the care of the patient.: Yes I have reviewed all pertinent clinical information: Yes Notes (Text): 09/20/16 Today: , September 20, 2016 The Patient was seen and examined at the bedside, Medical records reviewed, all clinical/lab/hemodynamic/radiographic data were reviewed and management issues were discussed and formulated, Events reviewed Pain issues, skin care, head of the bed elevation, glycemic control were addressed. Agree with above treatment plans as transcribed in Dr. Garcia / Js note 40 Y/O M admitted to the ICU this morning from emergency room after cardiac arrest, currently unresponsive to painful stimuli, no corneal /cough/gag reflex , Organ donation notified Continue supportive management, vent support, Follow up cerebral perfusion scan Palliative care consult Discussed with mother on the phone diagnosis, treatment plans and alternatives, mother is flying from [place] to see the patient tomorrow.
--- NOTE | 2016-09-20 14:37 | CP.PCM.CON ---
History of Present Illness - History of Present Illness History of Present Illness: Palliative consult for goals of care discussion Requested by Js GOMES Patient is a 46 yo male admitted after found on the hallway unresponsive. it is not known how long patient was down for. When EMS arrived patient was in asystole with pulse resumed after the resuscitation. Patient was found to be with full cardiac arrest and sever metabolic acidosis. patient was later on identified by his ex . At time when found patient had heroin and needles in his pocket. Ad per his ex , patient has a hx us recreational drug use. It is believed that patient has sustained anoxic brain injuries. Cerebral flow test is ordered to confirm the brain . PMH: unknown Soc. hx: , unemployed Fam. hx: unknown Review of Systems - Review of Systems Systems not reviewed;Unavailable: Intubated Past Patient History - Tetanus Immunizations Tetanus Immunization: Unknown - Past Social History Smoking Status: Unknown If Ever Smoked - CARDIAC Hx Cardiac Disorders: No - PULMONARY Hx Respiratory Disorders: No - NEUROLOGICAL Hx Neurological Disorder: No - HEENT Hx HEENT Problems: No - RENAL Hx Chronic Kidney Disease: No - ENDOCRINE/METABOLIC Hx Endocrine Disorders: No - HEMATOLOGICAL/ONCOLOGICAL Hx Blood Disorders: No - INTEGUMENTARY Hx Dermatological Problems: No - MUSCULOSKELETAL/RHEUMATOLOGICAL Hx Musculoskeletal Disorders: No Hx Falls: Yes - GASTROINTESTINAL Hx Gastrointestinal Disorders: No - GENITOURINARY/GYNECOLOGICAL Hx Genitourinary Disorders: No - PSYCHIATRIC Hx Substance Use: No (unknown) - SURGICAL HISTORY Hx Surgeries: No - ANESTHESIA Hx Anesthesia: No Meds Allergies/Adverse Reactions: Allergies Allergy/AdvReac Type Severity Reaction Status Date / Time Unobtainable Allergy Verified 09/20/16 05:00 - Medications Medications: Current Medications Artificial Tears (Lacri-Lube) 0 gm OU Q4 [facility] Last Admin: 09/20/16 13:00 Dose: 3.5 gm Norepinephrine Bitartrate 4 mg (/ Sodium Chloride) 254 mls @ 15.24 mls/hr IV .[id number] PRN; Protocol; 4 MCG/MIN PRN Reason: TITRATE PER MD ORDER Last Titration: 09/20/16 12:10 Dose: 30 mcg/min Sodium Chloride (Sodium Chloride 0.9%) 1,000 mls @ 100 mls/hr IV .Q10H [facility] Last Admin: 09/20/16 07:30 Dose: 100 mls/hr Propofol (Diprivan) 100 mls @ 2.722 mls/hr IV .Q24H PRN; Protocol; 5 MCG/KG/MIN PRN Reason: TITRATE PER MD ORDER Last Titration: 09/20/16 11:30 Dose: 0 mcg/kg/min Norepinephrine Bitartrate 8 mg (/ Sodium Chloride) 258 mls @ 7.74 mls/hr IV .Q24H PRN; Protocol; 4 MCG/MIN PRN Reason: TITRATE PER MD ORDER Pantoprazole Sodium (Protonix Inj) 40 mg IVP DAILY [facility] Last Admin: 09/20/16 14:24 Dose: 40 mg Physical Exam - Head Exam Head Exam: ATRAUMATIC, NORMAL INSPECTION, NORMOCEPHALIC - Eye Exam Pupil Exam: Fixed - ENT Exam ENT Exam: Mucous Membranes Dry Additional comments: ET tube - Neck Exam Neck exam: Positive for: Normal Inspection Additional comments: On MV - Cardiovascular Exam Cardiovascular Exam: Tachycardia - GI/Abdominal Exam GI & Abdominal Exam: Hypoactive Bowel Sounds - Rectal Exam Rectal Exam: Deferred - Exam Additional comments: Price cath - Extremities Exam Extremities exam: Positive for: normal inspection - Back Exam Back exam: NORMAL INSPECTION - Neurological Exam Neurological exam: Motor Sensory Deficit - Psychiatric Exam Psychiatric exam: Normal Affect - Skin Skin Exam: Normal Color Results - Vital Signs Recent Vital Signs: Last Vital Signs Temp 90.8 F L 09/20/16 11:00 Pulse 80 09/20/16 13:25 Resp 24 09/20/16 13:25 BP 99/64 L 09/20/16 13:25 Pulse Ox 100 09/20/16 13:25 - Labs Result Diagrams: 09/20/16 12:22 09/20/16 12:22 Labs: Laboratory Results - last 24 hr 09/20/16 09/20/16 09/20/16 07:01 07:19 12:22 WBC 11.1 H RBC 4.05 L Hgb 12.6 Hct 39.2 MCV 96.9 H D MCH 31.0 MCHC 32.0 L RDW 13.9 Plt Count 118 L MPV 7.8 Neut % (Auto) 93.2 H Lymph % (Auto) 3.6 L Stephenson % (Auto) 3.0 Eos % (Auto) 0.0 Baso % (Auto) 0.2 Neut # 10.3 H Lymph # 0.4 L Stephenson # 0.3 Eos # 0.0 Baso # 0.0 Neutrophils % (Manual) 75 Band Neutrophils % 21 H* Lymphocytes % (Manual) 3 L Monocytes % (Manual) 1 Platelet Estimate Slightly decreased L Velpen Cells Slight Puncture Site Unknown pCO2 47 H pO2 161 H HCO3 14.5 L ABG pH 7.13 L* ABG Total CO2 17.0 L ABG O2 Saturation 98.5 H ABG Base Excess -13.4 L Sukhi Test Na A-a O2 Difference 493.0 Respiratory Index 3.1 Mechanical Rate 24 FiO2 100.0 Tidal Volume 500 PEEP 5 Crit Value Called To Dr. albert Crit Value Called By Bry yadav Crit Value Read Back Y Blood Gas Notified Time 709 Sodium 141 Potassium 3.4 L Chloride 102 Carbon Dioxide 24 Anion Gap 19 BUN 17 Creatinine 1.7 H Est GFR ( Amer) 53 Est GFR (Non-Af Amer) 44 POC Glucose (mg/dL) 199 H Random Glucose 233 H Calcium 7.2 L Phosphorus 3.7 Magnesium 2.3 Total Bilirubin 0.6 AST 1872 H ALT 1792 H Alkaline Phosphatase 124 Total Protein 6.3 Albumin 3.4 L D Globulin 2.8 Albumin/Globulin Ratio 1.2 Assessment & Plan - Assessment and Plan (Free Text) Assessment: Palliative consult Code status, Full Code. No advance directive on chart. PPS 0 %. ROS unobtainable from the patient due to condition. I reviewed medical records, all diagnostic studies, examined patient in the bed and discussed his presentation with ICU team. ROS obtained from nursing. Patient is with sensory motor deficit.Pupils constricted and fixed. Corneal reflex absent. Gag reflex absent. Patient is fully dependent of MV support. Exam revealed complete sensory motor deficit. The brain flow studies are ordered to rule out brain . I met with patient's ex who stated last time she saw patient was around midnight last night. She admits knowledge of patient abusing drugs and says it was the reason for him about 1 year ago. She offered that patient has no close family members around here and that his mother was in [place]. Patient's mother was contacted by the ICU resident and was on her way over here , expected to arrive tomorrow. Impression * This is unfortunate patient, most likely with severe anoxic brain injury due to heroin overdose, S/P cardiac arrest * Neuro exam very poor revealing absence of corneal and gag reflex * Brain flow test ordered to confirm the brain Suggestion * Goals of care will depend of brain flow test findings * Palliative care will fallow up the patient and meet with his mother tomorrow to offer support * Sharing network should be notified
[2016-09-20 15:00] LABS: VENOUS BLOOD GAS BASE EXCESS 4.4 mmol/L (0.0-2.0); VENOUS BLOOD GAS PCO2 52 mmHg (40-60); VENOUS BLOOD PH 7.38 (7.32-7.43)
--- NOTE | 2016-09-20 16:51 | NM ---
PROCEDURE: Cerebral flow study. HISTORY: subarachnoid hemorrhage s/p cardiac arrest COMPARISON: September 20, 2016. CT brain TECHNIQUE: Standard protocol for this study/examination. Nineteen 1 mCi technetium 99 M DTPA administered intravenously. Flow and blood pool studies were obtained. Delayed images were not obtained due to unstable patient. FINDINGS: Bolus injection of technetium DTPA is of diagnostic quality. Flow was not evident above the brainstem. Findings of absent radionuclide confirmed on blood pool images. IMPRESSION: Limited assessment based on absence of delayed images. No supra tentorial blood flow was documented.
[2016-09-20] MEDS ORDERED: SODIUM CHLORIDE 0.9% IV ONE (18:08)
[2016-09-20] MEDS ORDERED: DESMOPRESSIN IV ONE (18:08)
[2016-09-20] MEDS ORDERED: Sodium Chloride 0.9% 1,000 ML IV SCH (18:11)
[2016-09-20] MEDS ORDERED: Desmopressin 4 mcg/ml Inj (1 ml) IVP ONE (18:30)
[2016-09-20] MEDS ORDERED: Dextrose 5%/0.45% NS 1,000 ML IV SCH (19:00)
[2016-09-20] MEDS: Sodium Chloride 0.45% 1,000 ML IV SCH (20:12)
[2016-09-20 20:36] LABS: ALB/GLOB RATIO 1.1 (1.0-2.1); BILIRUBIN,TOTAL 1.1 mg/dL (0.2-1.3); TOTAL PROTEIN 6.6 g/dL (6.3-8.3)
[2016-09-20 20:37] LABS: CALCIUM 7.5 mg/dl (8.6-10.4); PHOSPHOROUS 2.7 mg/dL (2.5-4.5)
--- NOTE | 2016-09-20 23:43 | CP.PCM.CON ---
History of Present Illness - History of Present Illness History of Present Illness: Patient is a 46 yo male admitted after found on the hallway unresponsive. it is not known how long patient was down for. When EMS arrived patient was in asystole with pulse resumed after the resuscitation. Patient was found to be with full cardiac arrest and sever metabolic acidosis. patient was later on identified by his ex . At time when found patient had heroin and needles in his pocket. Ad per his ex , patient has a hx us recreational drug use. It is believed that patient has sustained anoxic brain injuries. Cerebral flow test is ordered to confirm the brain . PMH: unknown Soc. hx: , unemployed Fam. hx: unknown Review of Systems - Review of Systems Systems not reviewed;Unavailable: Intubated Past Patient History - Tetanus Immunizations Tetanus Immunization: Unknown - Past Social History Smoking Status: Unknown If Ever Smoked - CARDIAC Hx Cardiac Disorders: No - PULMONARY Hx Respiratory Disorders: No - NEUROLOGICAL Hx Neurological Disorder: No - HEENT Hx HEENT Problems: No - RENAL Hx Chronic Kidney Disease: No - ENDOCRINE/METABOLIC Hx Endocrine Disorders: No - HEMATOLOGICAL/ONCOLOGICAL Hx Blood Disorders: No - INTEGUMENTARY Hx Dermatological Problems: No - MUSCULOSKELETAL/RHEUMATOLOGICAL Hx Musculoskeletal Disorders: No Hx Falls: Yes - GASTROINTESTINAL Hx Gastrointestinal Disorders: No - GENITOURINARY/GYNECOLOGICAL Hx Genitourinary Disorders: No - PSYCHIATRIC Hx Substance Use: No (unknown) - SURGICAL HISTORY Hx Surgeries: No - ANESTHESIA Hx Anesthesia: No - Head Exam Head Exam: ATRAUMATIC, NORMAL INSPECTION, NORMOCEPHALIC - Eye Exam Pupil Exam: Fixed - ENT Exam ENT Exam: Mucous Membranes Dry Additional comments: ET tube - Neck Exam Neck exam: Positive for: Normal Inspection Additional comments: On MV - Cardiovascular Exam Cardiovascular Exam: Tachycardia - GI/Abdominal Exam GI & Abdominal Exam: Hypoactive Bowel Sounds - Rectal Exam Rectal Exam: Deferred - Exam Additional comments: Price cath - Extremities Exam Extremities exam: Positive for: normal inspection - Back Exam Back exam: NORMAL INSPECTION - Neurological Exam Neurological exam: Motor Sensory Deficit - Psychiatric Exam Psychiatric exam: Normal Affect - Skin Skin Exam: Normal Color Results - Vital Signs Recent Vital Signs: Last Vital Signs Temp 90.8 F L 09/20/16 11:00 Pulse 80 09/20/16 13:25 Resp 24 09/20/16 13:25 BP 99/64 L 09/20/16 13:25 Pulse Ox 100 09/20/16 13:25 Meds Allergies/Adverse Reactions: Allergies Allergy/AdvReac Type Severity Reaction Status Date / Time Unobtainable Allergy Verified 09/20/16 05:00 - Medications Medications: Current Medications Artificial Tears (Lacri-Lube) 0 gm OU Q4 [facility] Last Admin: 09/20/16 13:00 Dose: 3.5 gm Norepinephrine Bitartrate 4 mg (/ Sodium Chloride) 254 mls @ 15.24 mls/hr IV .[id number] PRN; Protocol; 4 MCG/MIN PRN Reason: TITRATE PER MD ORDER Last Titration: 09/20/16 12:10 Dose: 30 mcg/min Sodium Chloride (Sodium Chloride 0.9%) 1,000 mls @ 100 mls/hr IV .Q10H [facility] Last Admin: 09/20/16 07:30 Dose: 100 mls/hr Propofol (Diprivan) 100 mls @ 2.722 mls/hr IV .Q24H PRN; Protocol; 5 MCG/KG/MIN PRN Reason: TITRATE PER MD ORDER Last Titration: 09/20/16 11:30 Dose: 0 mcg/kg/min Norepinephrine Bitartrate 8 mg (/ Sodium Chloride) 258 mls @ 7.74 mls/hr IV .Q24H PRN; Protocol; 4 MCG/MIN PRN Reason: TITRATE PER MD ORDER Pantoprazole Sodium (Protonix Inj) 40 mg IVP DAILY [facility] Last Admin: 09/20/16 14:24 Dose: 40 mg Code status, Full Code. No advance directive on chart. PPS 0 %. ROS unobtainable from the patient due to condition. I reviewed medical records, all diagnostic studies, examined patient in the bed and discussed his presentation with ICU team. ROS obtained from nursing. Patient is with sensory motor deficit.Pupils constricted and fixed. Corneal reflex absent. Gag reflex absent. Patient is fully dependent of MV support. Exam revealed complete sensory motor deficit. The brain flow studies are ordered to rule out brain . I met with patient's ex who stated last time she saw patient was around midnight last night. She admits knowledge of patient abusing drugs and says it was the reason for him about 1 year ago. She offered that patient has no close family members around here and that his mother was in [place]. Patient's mother was contacted by the ICU resident and was on her way over here , expected to arrive tomorrow. Impression * This is unfortunate patient, most likely with severe anoxic brain injury due to heroin overdose, S/P cardiac arrest * Neuro exam very poor revealing absence of corneal and gag reflex * Brain flow test ordered to confirm the brain Suggestion * Goals of care will depend of brain flow test findings * Palliative care will fallow up the patient and meet with his mother tomorrow to offer support * Sharing network should be notified Past Patient History - Tetanus Immunizations Tetanus Immunization: Unknown - Past Social History Smoking Status: Unknown If Ever Smoked - CARDIAC Hx Cardiac Disorders: No - PULMONARY Hx Respiratory Disorders: No - NEUROLOGICAL Hx Neurological Disorder: No - HEENT Hx HEENT Problems: No - RENAL Hx Chronic Kidney Disease: No - ENDOCRINE/METABOLIC Hx Endocrine Disorders: No - HEMATOLOGICAL/ONCOLOGICAL Hx Blood Disorders: No - INTEGUMENTARY Hx Dermatological Problems: No - MUSCULOSKELETAL/RHEUMATOLOGICAL Hx Musculoskeletal Disorders: No Hx Falls: Yes - GASTROINTESTINAL Hx Gastrointestinal Disorders: No - GENITOURINARY/GYNECOLOGICAL Hx Genitourinary Disorders: No - PSYCHIATRIC Hx Substance Use: No (unknown) - SURGICAL HISTORY Hx Surgeries: No - ANESTHESIA Hx Anesthesia: No Meds Allergies/Adverse Reactions: Allergies Allergy/AdvReac Type Severity Reaction Status Date / Time Unobtainable Allergy Verified 09/20/16 05:00 - Medications Medications: Current Medications Artificial Tears (Lacri-Lube) 0 gm OU Q4 [facility] Last Admin: 09/20/16 20:12 Dose: 3.5 gm Propofol (Diprivan) 100 mls @ 2.722 mls/hr IV .Q24H PRN; Protocol; 5 MCG/KG/MIN PRN Reason: TITRATE PER MD ORDER Last Titration: 09/20/16 11:30 Dose: 0 mcg/kg/min Norepinephrine Bitartrate 8 mg (/ Sodium Chloride) 258 mls @ 7.74 mls/hr IV .Q24H PRN; Protocol; 4 MCG/MIN PRN Reason: TITRATE PER MD ORDER Last Titration: 09/20/16 23:03 Dose: 4 mcg/min Vasopressin 40 units/ Sodium (Chloride) 40 mls @ 0.6 mls/hr IV .Q24H [facility]; 0.01 UNITS/MIN PRN Reason: Protocol Last Titration: 09/20/16 21:30 Dose: 0 units/min Sodium Chloride (Sodium Chloride 0.45%) 1,000 mls @ 125 mls/hr IV .Q8H [facility] Last Admin: 09/20/16 20:12 Dose: 125 mls/hr Pantoprazole Sodium (Protonix Inj) 40 mg IVP DAILY [facility] Last Admin: 09/20/16 14:24 Dose: 40 mg Physical Exam - Neurological Exam Additional comments: Mental status: Deep Coma, intubated, non verbal Cranial nerves II to XII: Dilated irregular pupils, non reactive Motor: Partial decorticate Rigidity with one hand up and the other arm in the middle No Spontaneous movements Sensory: Non responsive to pain or verbal Results - Vital Signs Recent Vital Signs: Last Vital Signs Temp 97.1 F L 09/20/16 21:00 Pulse 136 H 09/20/16 22:51 Resp 24 09/20/16 22:51 BP 166/111 H 09/20/16 22:51 Pulse Ox 100 09/20/16 22:51 - Labs Result Diagrams: 09/20/16 12:22 09/20/16 20:10 Labs: Laboratory Results - last 24 hr 09/20/16 09/20/16 09/20/16 07:01 07:19 12:22 WBC 11.1 H RBC 4.05 L Hgb 12.6 Hct 39.2 MCV 96.9 H D MCH 31.0 MCHC 32.0 L RDW 13.9 Plt Count 118 L MPV 7.8 Neut % (Auto) 93.2 H Lymph % (Auto) 3.6 L Wood % (Auto) 3.0 Eos % (Auto) 0.0 Baso % (Auto) 0.2 Neut # 10.3 H Lymph # 0.4 L Wood # 0.3 Eos # 0.0 Baso # 0.0 Neutrophils % (Manual) 75 Band Neutrophils % 21 H* Lymphocytes % (Manual) 3 L Monocytes % (Manual) 1 Platelet Estimate Slightly decreased L Malcolm Cells Slight Puncture Site Unknown pCO2 47 H pO2 161 H HCO3 14.5 L ABG pH 7.13 L* ABG Total CO2 17.0 L ABG O2 Saturation 98.5 H ABG Base Excess -13.4 L Sukhi Test Na VBG pH VBG pCO2 VBG HCO3 VBG Total CO2 VBG O2 Sat (Calc) VBG Base Excess VBG Potassium A-a O2 Difference 493.0 Respiratory Index 3.1 Glucose Lactate Mechanical Rate 24 FiO2 100.0 Tidal Volume 500 PEEP 5 Crit Value Called To Dr. albert Crit Value Called By Bry yadav Crit Value Read Back Y Blood Gas Notified Time 709 Sodium 141 Potassium 3.4 L Chloride 102 Carbon Dioxide 24 Anion Gap 19 BUN 17 Creatinine 1.7 H Est GFR ( Amer) 53 Est GFR (Non-Af Amer) 44 POC Glucose (mg/dL) 199 H Random Glucose 233 H Hemoglobin A1c Calcium 7.2 L Phosphorus 3.7 Magnesium 2.3 Total Bilirubin 0.6 AST 1872 H ALT 1792 H Alkaline Phosphatase 124 Total Protein 6.3 Albumin 3.4 L D Globulin 2.8 Albumin/Globulin Ratio 1.2 Venous Blood Potassium Blood Type Antibody Screen 09/20/16 09/20/16 09/20/16 14:56 14:57 17:59 WBC RBC Hgb Hct MCV MCH MCHC RDW Plt Count MPV Neut % (Auto) Lymph % (Auto) Wood % (Auto) Eos % (Auto) Baso % (Auto) Neut # Lymph # Wood # Eos # Baso # Neutrophils % (Manual) Band Neutrophils % Lymphocytes % (Manual) Monocytes % (Manual) Platelet Estimate Giorgi Cells Puncture Site pCO2 pO2 34 HCO3 ABG pH ABG Total CO2 ABG O2 Saturation ABG Base Excess Sukhi Test VBG pH 7.38 VBG pCO2 52 VBG HCO3 27.5 VBG Total CO2 32.4 H VBG O2 Sat (Calc) 64.8 VBG Base Excess 4.4 H VBG Potassium 3.7 A-a O2 Difference Respiratory Index Glucose 151 H Lactate 4.7 H* Mechanical Rate FiO2 100.0 Tidal Volume PEEP 5 Crit Value Called To Dr. miramontes Crit Value Called By Bry yadav Crit Value Read Back Y Blood Gas Notified Time 1500 Sodium 146.0 Potassium Chloride 108.0 H Carbon Dioxide Anion Gap BUN Creatinine Est GFR ( Amer) Est GFR (Non-Af Amer) POC Glucose (mg/dL) Random Glucose Hemoglobin A1c 6.6 H Calcium Phosphorus Magnesium Total Bilirubin AST ALT Alkaline Phosphatase Total Protein Albumin Globulin Albumin/Globulin Ratio Venous Blood Potassium 3.7 Blood Type O POSITIVE Antibody Screen Negative 09/20/16 20:10 WBC RBC Hgb Hct MCV MCH MCHC RDW Plt Count MPV Neut % (Auto) Lymph % (Auto) Wood % (Auto) Eos % (Auto) Baso % (Auto) Neut # Lymph # Wood # Eos # Baso # Neutrophils % (Manual) Band Neutrophils % Lymphocytes % (Manual) Monocytes % (Manual) Platelet Estimate Malcolm Cells Puncture Site pCO2 pO2 HCO3 ABG pH ABG Total CO2 ABG O2 Saturation ABG Base Excess Sukhi Test VBG pH VBG pCO2 VBG HCO3 VBG Total CO2 VBG O2 Sat (Calc) VBG Base Excess VBG Potassium A-a O2 Difference Respiratory Index Glucose Lactate Mechanical Rate FiO2 Tidal Volume PEEP Crit Value Called To Crit Value Called By Crit Value Read Back Blood Gas Notified Time Sodium 145 Potassium 4.0 Chloride 104 Carbon Dioxide 31 H Anion Gap 14 BUN 21 H Creatinine 1.9 H Est GFR ( Amer) 46 Est GFR (Non-Af Amer) 38 POC Glucose (mg/dL) Random Glucose 108 Hemoglobin A1c Calcium 7.5 L Phosphorus 2.7 Magnesium 2.0 Total Bilirubin 1.1 AST 2399 H ALT 2313 H Alkaline Phosphatase 120 Total Protein 6.6 Albumin 3.5 Globulin 3.1 Albumin/Globulin Ratio 1.1 Venous Blood Potassium Blood Type Antibody Screen Assessment & Plan (1) Cardiopulmonary arrest with successful resuscitation Assessment and Plan: Cerebral Blood flow to assess for Brain . Status: Acute (2) Drug overdose Assessment and Plan: Heroin Abuse Status: Acute (3) Decorticate posturing Assessment and Plan: Brain Herniation Status: Acute Comment: Very Poor Prognosis
[2016-09-21] MEDS: White Petrolatum/Mineral Oil Ophth Oint(3.5 gm) OU SCH ×6 (00:06→20:35)
[2016-09-21 02:24] LABS: POTASSIUM 4.8 mmol/L (3.6-5.2)
[2016-09-21 02:26] LABS: ALB/GLOB RATIO 1.2 (1.0-2.1); BILIRUBIN,TOTAL 2.2 mg/dL (0.2-1.3); TOTAL PROTEIN 6.9 g/dL (6.3-8.3)
[2016-09-21 02:27] LABS: CALCIUM 7.5 mg/dl (8.6-10.4)
[2016-09-21] MEDS: Sodium Chloride 0.45% 1,000 ML IV SCH ×3 (04:02→21:15)
[2016-09-21 05:57] LABS: ABG ALLEN TEST POS; ABG MECHANICAL RATE 24; ARTERIAL BLOOD HGB O2 SAT 97.6 % (95.0-98.0); ATERIAL BLOOD GAS PEEP 5; CARBOXYHEMOGLOBIN 0.5 % (0.5-1.5); DRAW SITE RR
[2016-09-21 06:17] LABS: BASO % 0.7 % (0.0-2.0); EOS % 0.1 % (0.0-4.0); HEMATOCRIT 43.1 % (35.0-51.0); LYMPH # 1.3 K/uL (1.0-4.3); LYMPH % 28.6 % (20.0-40.0); MEAN CELL VOLUME 96.7 fL (80.0-94.0); MEAN CORPUSCULAR HEMOGLOBIN 31.5 pg (27.0-31.0); MEAN CORPUSCULAR HGB CONC 32.6 g/dL (33.0-37.0); MEAN PLATELET VOLUME 8.3 fL (7.2-11.7); MONO # 0.2 K/uL (0.0-0.8); NRBC % 0.3 % (0.0-2.0); RED CELL DISTRIBUTION WIDTH 14.4 % (11.5-14.5); WHITE BLOOD COUNT 4.4 K/uL (4.8-10.8)
[2016-09-21 06:34] LABS: INR 1.5
--- NOTE | 2016-09-21 08:37 | RAD ---
HISTORY: intubated COMPARISON: 09/20/2016 FINDINGS: LUNGS: No focal airspace opacity. Please note that the costophrenic angles were not imaged. PLEURA: No significant pleural effusion identified, no pneumothorax apparent. CARDIOVASCULAR: Normal. OSSEOUS STRUCTURES: No significant abnormalities. VISUALIZED UPPER ABDOMEN: Upper abdomen is suboptimally evaluated. OTHER FINDINGS: ET tube above the najma. Feeding tube noted with the distal tip not seen however likely coursing below the diaphragm. Pacemaker pad noted overlying the left coco thorax. IMPRESSION: No focal airspace opacity. Findings as above.
[2016-09-21] MEDS ORDERED: Sodium Chloride 0.45% 1,000 ML IV SCH (09:00)
[2016-09-21 09:30] LABS: POTASSIUM 5.9 mmol/L (3.6-5.2)
[2016-09-21 09:32] LABS: BILIRUBIN,TOTAL 1.7 mg/dL (0.2-1.3)
[2016-09-21 09:33] LABS: ALB/GLOB RATIO 1.1 (1.0-2.1); TOTAL PROTEIN 6.4 g/dL (6.3-8.3)
[2016-09-21 09:48] LABS: TROPONIN I 3.98 ng/mL (0.00-0.120)
--- NOTE | 2016-09-21 11:55 | CARD ---
APPROVED REPORT EKG Measurement Heart [id number] <Conclusion> Sinus rhythm with 1st degree AV block Nonspecific ST abnormality Prolonged QT Abnormal ECG
[2016-09-21 12:03] LABS: BILIRUBIN,TOTAL 1.6 mg/dL (0.2-1.3)
[2016-09-21 12:04] LABS: CALCIUM 6.5 mg/dl (8.6-10.4); TOTAL PROTEIN 6.1 g/dL (6.3-8.3)
--- NOTE | 2016-09-21 12:14 | CARD ---
APPROVED REPORT EXAM: Two-dimensional and M-mode echocardiogram with Doppler and color Doppler. Other Information Quality : Technically LimitedRhythm : Technically limited study due to body habitus. INDICATION ICD: 427.5 Cardiac Arrest DRUG ABUSE, ORGAN DONATION Surgery/Intervention Type: M-Mode DIMENSIONS RVDd1.97 (2.1-3.2cm)Left Atrium (MM)2.57 (2.5-4.0cm) IVSd1.28 (0.7-1.1cm)Aortic Root3.45 (2.2-3.7cm) LVDd4.71 (4.0-5.6cm)Aortic Cusp Exc.1.50 (1.5-2.0cm) PWd1.31 (0.7-1.1cm)FS (%) 19 % LVDs3.80 (2.0-3.8cm)LVEF (%)40 (>50%) Mitral Valve MV E Qozqzzwa91.7cm/sMV A Ausjcclo70.7cm/sE/A ratio1.6 TDI E/Lateral E'0.0E/Medial E'0.0 LEFT VENTRICLE The left ventricle is normal size. There is mild to moderate concentric left ventricular hypertrophy. The systolic function is mildly impaired. abnormal septal motion noted. Tissue Doppler imaging reveals mild left ventricular diastolic dysfunction. No left ventricle thrombus noted on this study. There is no ventricular septal defect visualized. There is no left ventricular aneurysm. There is no mass noted in the left ventricle. RIGHT VENTRICLE The right ventricle is normal size. There is normal right ventricular wall thickness. The right ventricular systolic function is normal. ATRIA The left atrium size is normal. The right atrium size is normal. AORTIC VALVE The aortic valve is normal in structure. No aortic regurgitation is present. There is no aortic valvular stenosis. There is no aortic valvular vegetation. MITRAL VALVE The mitral valve is normal in structure. There is no mitral valve stenosis. There is no mitral valve regurgitation noted. TRICUSPID VALVE The tricuspid valve is normal in structure. There is no tricuspid valve regurgitation noted. PULMONIC VALVE The pulmonary valve is normal in structure. There is no pulmonic valvular regurgitation. GREAT VESSELS The aortic root is normal in size. The ascending aorta is normal in size. The pulmonary artery is normal. The IVC is normal in size and collapses >50% with inspiration. PERICARDIAL EFFUSION There is no pericardial effusion. <Conclusion> There is mild to moderate concentric left ventricular hypertrophy. The systolic function is mildly impaired. abnormal septal motion noted. Tissue Doppler imaging reveals mild left ventricular diastolic dysfunction.
[2016-09-21 12:33] LABS: POTASSIUM 6.2 mmol/L (3.6-5.2)
[2016-09-21] MEDS ORDERED: Dextrose 50% SYRINGE Inj (50 ml) IV ONE (13:15)
[2016-09-21] MEDS ORDERED: (Novolin R) Insulin Human Regular 100 units/ml vial SC ONE ×2 (13:15→18:29)
[2016-09-21] MEDS ORDERED: Calcium Gluconate 4.65 mEq/10 ml Inj IVP ONE ×2 (13:15→18:29)
[2016-09-21] MEDS ORDERED: (Novolin R) Insulin Human Regular 100 units/ml vial IV ONE ×2 (13:30→18:47)
--- NOTE | 2016-09-21 14:45 | CP.CCUPN ---
<Santiago Weinsteina - Last Filed: 09/21/16 14:37> CCU Subjective - Physician Review Subjective (Free Text): Patient seen and examined at bedside. Patient is currently on Vasopressin 0.04 units/ min, levophed 10 units. Labs are being drawn Q6H as per sharing network. Mother is arriving to [facility] at 6pm, we expect her here after that. Plan is for possible repeat cerebral blood flow tomorrow afternoon after 3pm. Since patient had the study done yesterday, the radioisotope's half life is 24- 48, so to prevent background noise, the earliest the exam can be repeated is tomorrow afternoon. CCU Objective - Vital Signs / Intake & Output Vital Signs (Last 4 hours): Vital Signs Pulse Resp BP Pulse Ox 09/21/16 14:23 120 H 24 84/49 L 95 09/21/16 14:18 121 H 24 80/44 L 95 09/21/16 14:15 122 H 24 79/43 L 95 09/21/16 14:09 124 H 25 H 73/51 L 94 L 09/21/16 14:00 124 H 24 93 L 09/21/16 13:54 125 H 24 87/40 L 93 L 09/21/16 13:39 128 H 23 94/50 L 94 L 09/21/16 13:22 129 H 24 151/81 H 96 09/21/16 13:11 126 H 24 103/67 96 09/21/16 13:02 126 H 22 110/67 95 09/21/16 13:00 125 H 16 96 09/21/16 12:51 126 H 23 111/59 L 96 09/21/16 12:42 124 H 25 H 113/60 98 09/21/16 12:31 122 H 24 89/65 L 100 09/21/16 12:21 122 H 24 90/66 L 100 09/21/16 12:11 122 H 23 105/68 100 09/21/16 12:01 122 H 25 H 102/64 100 09/21/16 11:51 122 H 23 106/61 100 09/21/16 11:41 123 H 24 94/59 L 100 09/21/16 11:34 123 H 24 97/61 L 100 09/21/16 11:32 123 H 13 168/147 H 100 09/21/16 11:21 126 H 24 106/66 100 09/21/16 11:12 126 H 24 104/53 L 100 09/21/16 11:02 124 H 24 81/51 L 100 09/21/16 11:00 125 H 24 100 09/21/16 10:51 126 H 24 108/66 100 09/21/16 10:41 127 H 24 95/66 L 100 Intake and Output (Last 8hrs): Intake & Output 09/20/16 09/21/16 09/21/16 22:59 06:59 14:59 Intake Total 1312.3 1112.5 2017.8 Output Total 1425 900 230 Balance -112.7 212.5 1787.8 Weight 198 lb 3.2 oz Intake: Intake, IV Amount 1312.3 1112.5 2016.8 Left Proximal Port 1075 1000 1875 Left Medial Port 228.3 101.7 11.4 Left Distal Port 9.0 10.8 12.0 Left Distal Port Femoral 119.4 Output: Urine 1425 900 230 Urethral (Price) 1425 900 230 Other: # Bowel Movements 1 - Physical Exam Head: Positive for: Laceration Pupils: Positive for: Non-Reactive - Medications Active Medications: Active Medications Generic Name Dose Route Start Last Admin Trade Name Freq PRN Reason Stop Dose Admin Artificial Tears 0 gm 09/20/16 12:00 09/21/16 13:17 Lacri-Lube OU 3.5 gm Q4 ASTER Administration Propofol 100 mls @ 2.722 mls/hr 09/20/16 09:12 09/20/16 11:30 Diprivan IV 0 mcg/kg/min .Q24H PRN Titration TITRATE PER MD ORDER Protocol 5 MCG/KG/MIN Norepinephrine Bitartrate 8 mg 258 mls @ 7.74 mls/hr 09/20/16 14:02 09/21/16 14 :20 / Sodium Chloride IV 15 mcg/min .Q24H PRN Titration TITRATE PER MD ORDER Protocol 4 MCG/MIN Sodium Chloride 1,000 mls @ 125 mls/hr 09/20/16 20:15 09/21/16 12:59 Sodium Chloride 0.45% IV 125 mls/hr .Q8H ASTER Administration Vasopressin 40 units/ Sodium 40 mls @ 1.2 mls/hr 09/21/16 09:00 09/21/16 09:05 Chloride IV 1.2 mls/hr .Q24H ASTER Administration Protocol 0.02 UNITS/MIN Pantoprazole Sodium 40 mg 09/20/16 14:00 09/21/16 10:17 Protonix Inj IVP 40 mg DAILY ASTER Administration - Patient Studies Lab Studies: Microbiology Studies 09/20/16 07:18 Urine Culture - Final Urine,Catheterized No Growth (<1,000 CFU/ML) 09/20/16 07:30 Blood Culture - Preliminary Blood NO GROWTH AFTER 24 HOURS 09/20/16 07:00 Blood Culture - Preliminary Blood NO GROWTH AFTER 24 HOURS Lab Studies 09/21/16 09/21/16 09/21/16 Range/Units 11:45 08:53 06:12 WBC 4.4 L D (4.8-10.8) K/uL RBC 4.45 (4.40-5.90) Mil/uL Hgb 14.0 (12.0-18.0) g/dL Hct 43.1 (35.0-51.0) % MCV 96.7 H (80.0-94.0) fL MCH 31.5 H (27.0-31.0) pg MCHC 32.6 L (33.0-37.0) g/dL RDW 14.4 (11.5-14.5) % Plt Count 99 L (130-400) K/uL MPV 8.3 (7.2-11.7) fL Neut % (Auto) 66.6 (50.0-75.0) % Lymph % (Auto) 28.6 (20.0-40.0) % Conway % (Auto) 4.0 (0.0-10.0) % Eos % (Auto) 0.1 (0.0-4.0) % Baso % (Auto) 0.7 (0.0-2.0) % Neut # 2.9 (1.8-7.0) K/uL Lymph # 1.3 (1.0-4.3) K/uL Conway # 0.2 (0.0-0.8) K/uL Eos # 0.0 (0.0-0.7) K/uL Baso # 0.0 (0.0-0.2) K/uL PT 17.3 H (9.7-12.2) SECONDS INR 1.5 APTT 28 D (21-34) SECONDS Puncture Site pCO2 (35-45) mm/Hg pO2 (80-100) mm/Hg HCO3 (21-28) mmol/L ABG pH (7.35-7.45) ABG Total CO2 (22-28) mmol/L ABG O2 Saturation (95-98) % ABG Base Excess (-2.0-3.0) mmol/L ABG Hemoglobin (11.7-17.4) g/dL ABG Carboxyhemoglobin (0.5-1.5) % POC ABG HHb (Measured) (0.0-5.0) % ABG Methemoglobin (0.0-3.0) % Sukhi Test VBG pH (7.32-7.43) VBG pCO2 (40-60) mmHg VBG HCO3 mmol/L VBG Total CO2 (22-28) mmol/L VBG O2 Sat (Calc) (40-65) % VBG Base Excess (0.0-2.0) mmol/L VBG Potassium (3.6-5.2) mmol/L A-a O2 Difference mm/Hg Respiratory Index Hgb O2 Saturation (95.0-98.0) % Glucose (75-110) mg/dl Lactate (0.7-2.1) mmol/L Mechanical Rate FiO2 % Tidal Volume PEEP Crit Value Called To Crit Value Called By Crit Value Read Back Blood Gas Notified Time Sodium 143 146 (132-148) mmol/L Potassium 6.2 H* 5.9 H (3.6-5.2) mmol/L Chloride 104 105 (98-107) mmol/L Carbon Dioxide 29 31 H (22-30) mmol/L Anion Gap 16 16 (10-20) BUN 38 H 34 H (9-20) mg/dL Creatinine 3.6 H 3.2 H (0.8-1.5) MG/DL Est GFR ( Amer) 22 25 Est GFR (Non-Af Amer) 18 21 Random Glucose 68 L 66 L (75-110) mg/dL Hemoglobin A1c (4.2-6.5) % Lactic Acid 2.3 H (0.7-2.1) mmol/L Calcium 6.5 L 7.0 L (8.6-10.4) mg/dl Phosphorus (2.5-4.5) mg/dL Magnesium (1.6-2.3) mg/dL Total Bilirubin 1.6 H 1.7 H (0.2-1.3) mg/dL AST 6141 H 6297 H (17-59) U/L ALT 5662 H 5751 H (21-72) U/L Alkaline Phosphatase 112 129 H (38-126) U/L Troponin I 3.9800 H* (0.00-0.120) ng/mL Total Protein 6.1 L 6.4 (6.3-8.3) g/dL Albumin 3.1 L 3.3 L (3.5-5.0) g/dL Globulin 3.0 3.1 (2.2-3.9) gm/dL Albumin/Globulin Ratio 1.0 1.1 (1.0-2.1) Venous Blood Potassium (3.6-5.2) mmol/L Blood Type Antibody Screen 09/21/16 09/21/16 09/20/16 Range/Units 05:33 02:13 20:10 WBC (4.8-10.8) K/uL RBC (4.40-5.90) Mil/uL Hgb (12.0-18.0) g/dL Hct (35.0-51.0) % MCV (80.0-94.0) fL MCH (27.0-31.0) pg MCHC (33.0-37.0) g/dL RDW (11.5-14.5) % Plt Count (130-400) K/uL MPV (7.2-11.7) fL Neut % (Auto) (50.0-75.0) % Lymph % (Auto) (20.0-40.0) % Conway % (Auto) (0.0-10.0) % Eos % (Auto) (0.0-4.0) % Baso % (Auto) (0.0-2.0) % Neut # (1.8-7.0) K/uL Lymph # (1.0-4.3) K/uL Conway # (0.0-0.8) K/uL Eos # (0.0-0.7) K/uL Baso # (0.0-0.2) K/uL PT (9.7-12.2) SECONDS INR APTT (21-34) SECONDS Puncture Site Rr pCO2 51 H (35-45) mm/Hg pO2 303 H (80-100) mm/Hg HCO3 26.2 (21-28) mmol/L ABG pH 7.35 (7.35-7.45) ABG Total CO2 29.8 H (22-28) mmol/L ABG O2 Saturation 99.0 H (95-98) % ABG Base Excess 1.6 (-2.0-3.0) mmol/L ABG Hemoglobin 14.3 (11.7-17.4) g/dL ABG Carboxyhemoglobin 0.5 (0.5-1.5) % POC ABG HHb (Measured) 1.0 (0.0-5.0) % ABG Methemoglobin 1.0 (0.0-3.0) % Sukhi Test Pos VBG pH (7.32-7.43) VBG pCO2 (40-60) mmHg VBG HCO3 mmol/L VBG Total CO2 (22-28) mmol/L VBG O2 Sat (Calc) (40-65) % VBG Base Excess (0.0-2.0) mmol/L VBG Potassium (3.6-5.2) mmol/L A-a O2 Difference 346.0 mm/Hg Respiratory Index 1.1 Hgb O2 Saturation 97.6 (95.0-98.0) % Glucose (75-110) mg/dl Lactate (0.7-2.1) mmol/L Mechanical Rate 24 FiO2 100.0 % Tidal Volume 500 PEEP 5 Crit Value Called To Crit Value Called By Crit Value Read Back Blood Gas Notified Time Sodium 148 145 (132-148) mmol/L Potassium 4.8 4.0 (3.6-5.2) mmol/L Chloride 106 104 (98-107) mmol/L Carbon Dioxide 32 H 31 H (22-30) mmol/L Anion Gap 15 14 (10-20) BUN 25 H 21 H (9-20) mg/dL Creatinine 2.2 H 1.9 H (0.8-1.5) MG/DL Est GFR ( Amer) 39 46 Est GFR (Non-Af Amer) 32 38 Random Glucose 73 L 108 (75-110) mg/dL Hemoglobin A1c (4.2-6.5) % Lactic Acid (0.7-2.1) mmol/L Calcium 7.5 L 7.5 L (8.6-10.4) mg/dl Phosphorus 2.7 (2.5-4.5) mg/dL Magnesium 2.0 (1.6-2.3) mg/dL Total Bilirubin 2.2 H 1.1 (0.2-1.3) mg/dL AST 4222 H 2399 H (17-59) U/L ALT 4171 H 2313 H (21-72) U/L Alkaline Phosphatase 139 H 120 (38-126) U/L Troponin I (0.00-0.120) ng/mL Total Protein 6.9 6.6 (6.3-8.3) g/dL Albumin 3.7 3.5 (3.5-5.0) g/dL Globulin 3.1 3.1 (2.2-3.9) gm/dL Albumin/Globulin Ratio 1.2 1.1 (1.0-2.1) Venous Blood Potassium (3.6-5.2) mmol/L Blood Type Antibody Screen 09/20/16 09/20/16 09/20/16 Range/Units 17:59 14:57 14:56 WBC (4.8-10.8) K/uL RBC (4.40-5.90) Mil/uL Hgb (12.0-18.0) g/dL Hct (35.0-51.0) % MCV (80.0-94.0) fL MCH (27.0-31.0) pg MCHC (33.0-37.0) g/dL RDW (11.5-14.5) % Plt Count (130-400) K/uL MPV (7.2-11.7) fL Neut % (Auto) (50.0-75.0) % Lymph % (Auto) (20.0-40.0) % Conway % (Auto) (0.0-10.0) % Eos % (Auto) (0.0-4.0) % Baso % (Auto) (0.0-2.0) % Neut # (1.8-7.0) K/uL Lymph # (1.0-4.3) K/uL Conway # (0.0-0.8) K/uL Eos # (0.0-0.7) K/uL Baso # (0.0-0.2) K/uL PT (9.7-12.2) SECONDS INR APTT (21-34) SECONDS Puncture Site pCO2 (35-45) mm/Hg pO2 34 (80-100) mm/Hg HCO3 (21-28) mmol/L ABG pH (7.35-7.45) ABG Total CO2 (22-28) mmol/L ABG O2 Saturation (95-98) % ABG Base Excess (-2.0-3.0) mmol/L ABG Hemoglobin (11.7-17.4) g/dL ABG Carboxyhemoglobin (0.5-1.5) % POC ABG HHb (Measured) (0.0-5.0) % ABG Methemoglobin (0.0-3.0) % Sukhi Test VBG pH 7.38 (7.32-7.43) VBG pCO2 52 (40-60) mmHg VBG HCO3 27.5 mmol/L VBG Total CO2 32.4 H (22-28) mmol/L VBG O2 Sat (Calc) 64.8 (40-65) % VBG Base Excess 4.4 H (0.0-2.0) mmol/L VBG Potassium 3.7 (3.6-5.2) mmol/L A-a O2 Difference mm/Hg Respiratory Index Hgb O2 Saturation (95.0-98.0) % Glucose 151 H (75-110) mg/dl Lactate 4.7 H* (0.7-2.1) mmol/L Mechanical Rate FiO2 100.0 % Tidal Volume PEEP 5 Crit Value Called To Dr. miramontes Crit Value Called By Bry yadav Crit Value Read Back Y Blood Gas Notified Time 1500 Sodium 146.0 (132-148) mmol/L Potassium (3.6-5.2) mmol/L Chloride 108.0 H (98-107) mmol/L Carbon Dioxide (22-30) mmol/L Anion Gap (10-20) BUN (9-20) mg/dL Creatinine (0.8-1.5) MG/DL Est GFR ( Amer) Est GFR (Non-Af Amer) Random Glucose (75-110) mg/dL Hemoglobin A1c 6.6 H (4.2-6.5) % Lactic Acid (0.7-2.1) mmol/L Calcium (8.6-10.4) mg/dl Phosphorus (2.5-4.5) mg/dL Magnesium (1.6-2.3) mg/dL Total Bilirubin (0.2-1.3) mg/dL AST (17-59) U/L ALT (21-72) U/L Alkaline Phosphatase (38-126) U/L Troponin I (0.00-0.120) ng/mL Total Protein (6.3-8.3) g/dL Albumin (3.5-5.0) g/dL Globulin (2.2-3.9) gm/dL Albumin/Globulin Ratio (1.0-2.1) Venous Blood Potassium 3.7 (3.6-5.2) mmol/L Blood Type O POSITIVE Antibody Screen Negative Laboratory Results - last 24 hr 09/20/16 09/20/16 09/20/16 14:56 14:57 17:59 WBC RBC Hgb Hct MCV MCH MCHC RDW Plt Count MPV Neut % (Auto) Lymph % (Auto) Conway % (Auto) Eos % (Auto) Baso % (Auto) Neut # Lymph # Conway # Eos # Baso # PT INR APTT Puncture Site pCO2 pO2 34 HCO3 ABG pH ABG Total CO2 ABG O2 Saturation ABG Base Excess ABG Hemoglobin ABG Carboxyhemoglobin POC ABG HHb (Measured) ABG Methemoglobin Sukhi Test VBG pH 7.38 VBG pCO2 52 VBG HCO3 27.5 VBG Total CO2 32.4 H VBG O2 Sat (Calc) 64.8 VBG Base Excess 4.4 H VBG Potassium 3.7 A-a O2 Difference Respiratory Index Hgb O2 Saturation Sodium 146.0 Chloride 108.0 H Glucose 151 H Lactate 4.7 H* Mechanical Rate FiO2 100.0 Tidal Volume PEEP 5 Crit Value Called To Dr. miramontes Crit Value Called By Bry yadav Crit Value Read Back Y Blood Gas Notified Time 1500 Potassium Carbon Dioxide Anion Gap BUN Creatinine Est GFR ( Amer) Est GFR (Non-Af Amer) Random Glucose Hemoglobin A1c 6.6 H Lactic Acid Calcium Phosphorus Magnesium Total Bilirubin AST ALT Alkaline Phosphatase Troponin I Total Protein Albumin Globulin Albumin/Globulin Ratio Venous Blood Potassium 3.7 Blood Type O POSITIVE Antibody Screen Negative 09/20/16 09/21/16 09/21/16 20:10 02:13 05:33 WBC RBC Hgb Hct MCV MCH MCHC RDW Plt Count MPV Neut % (Auto) Lymph % (Auto) Conway % (Auto) Eos % (Auto) Baso % (Auto) Neut # Lymph # Conway # Eos # Baso # PT INR APTT Puncture Site Rr pCO2 51 H pO2 303 H HCO3 26.2 ABG pH 7.35 ABG Total CO2 29.8 H ABG O2 Saturation 99.0 H ABG Base Excess 1.6 ABG Hemoglobin 14.3 ABG Carboxyhemoglobin 0.5 POC ABG HHb (Measured) 1.0 ABG Methemoglobin 1.0 Sukhi Test Pos VBG pH VBG pCO2 VBG HCO3 VBG Total CO2 VBG O2 Sat (Calc) VBG Base Excess VBG Potassium A-a O2 Difference 346.0 Respiratory Index 1.1 Hgb O2 Saturation 97.6 Sodium 145 148 Chloride 104 106 Glucose Lactate Mechanical Rate 24 FiO2 100.0 Tidal Volume 500 PEEP 5 Crit Value Called To Crit Value Called By Crit Value Read Back Blood Gas Notified Time Potassium 4.0 4.8 Carbon Dioxide 31 H 32 H Anion Gap 14 15 BUN 21 H 25 H Creatinine 1.9 H 2.2 H Est GFR ( Amer) 46 39 Est GFR (Non-Af Amer) 38 32 Random Glucose 108 73 L Hemoglobin A1c Lactic Acid Calcium 7.5 L 7.5 L Phosphorus 2.7 Magnesium 2.0 Total Bilirubin 1.1 2.2 H AST 2399 H 4222 H ALT 2313 H 4171 H Alkaline Phosphatase 120 139 H Troponin I Total Protein 6.6 6.9 Albumin 3.5 3.7 Globulin 3.1 3.1 Albumin/Globulin Ratio 1.1 1.2 Venous Blood Potassium Blood Type Antibody Screen 09/21/16 09/21/16 09/21/16 06:12 08:53 11:45 WBC 4.4 L D RBC 4.45 Hgb 14.0 Hct 43.1 MCV 96.7 H MCH 31.5 H MCHC 32.6 L RDW 14.4 Plt Count 99 L MPV 8.3 Neut % (Auto) 66.6 Lymph % (Auto) 28.6 Conway % (Auto) 4.0 Eos % (Auto) 0.1 Baso % (Auto) 0.7 Neut # 2.9 Lymph # 1.3 Conway # 0.2 Eos # 0.0 Baso # 0.0 PT 17.3 H INR 1.5 APTT 28 D Puncture Site pCO2 pO2 HCO3 ABG pH ABG Total CO2 ABG O2 Saturation ABG Base Excess ABG Hemoglobin ABG Carboxyhemoglobin POC ABG HHb (Measured) ABG Methemoglobin Sukhi Test VBG pH VBG pCO2 VBG HCO3 VBG Total CO2 VBG O2 Sat (Calc) VBG Base Excess VBG Potassium A-a O2 Difference Respiratory Index Hgb O2 Saturation Sodium 146 143 Chloride 105 104 Glucose Lactate Mechanical Rate FiO2 Tidal Volume PEEP Crit Value Called To Crit Value Called By Crit Value Read Back Blood Gas Notified Time Potassium 5.9 H 6.2 H* Carbon Dioxide 31 H 29 Anion Gap 16 16 BUN 34 H 38 H Creatinine 3.2 H 3.6 H Est GFR ( Amer) 25 22 Est GFR (Non-Af Amer) 21 18 Random Glucose 66 L 68 L Hemoglobin A1c Lactic Acid 2.3 H Calcium 7.0 L 6.5 L Phosphorus Magnesium Total Bilirubin 1.7 H 1.6 H AST 6297 H 6141 H ALT 5751 H 5662 H Alkaline Phosphatase 129 H 112 Troponin I 3.9800 H* Total Protein 6.4 6.1 L Albumin 3.3 L 3.1 L Globulin 3.1 3.0 Albumin/Globulin Ratio 1.1 1.0 Venous Blood Potassium Blood Type Antibody Screen Assessment/Plan - Assessment and Plan (Free Text) Assessment: 46M with PMHx of heroine abuse found unresponsive s/p cardiac arrest found to have subarachnoid hemorrhage. Plan: S/P cardiopulmonary arrest * Upon arrival in the ICU, patient had a seizure- he was given ativan and started on a propofol drip. ABG revealed severe respiratory and metabolic acidosis, EK with 1st degree HB, ETT in place, no pneumothorax. Patient was unresponsive, pupils were fixed and dilated (equal), no corneal reflex, no gag reflex, no spontaneous respirations, patient is not breathing over the vent. * Was administered calcium gluconate, D50, and insulin for hyperkalemia. * Currently on Levophed and Vasopression. * Head CT showed: Diffuse subarachnoid hemorrhage with small localized clot or possibly small aneurysm in the region of the anterior communicating artery. Diffuse significant cerebral edema with effacement of sulci and compression of the ventricles. Cerebral edema also affects the posterior fossa structures with questionable tonsillar herniation. There may also be early significant hypoxic changes within the lateral basal nuclei bilaterally. * Hypothermia protocol was contraindicated due to subarachnoid hemorrhage * Neurology was consulted: Dr. Alexis - Cerebral Flow study ordered revealed: Bolus injection of technetium DTPA is of diagnostic quality. Flow was not evident above the brainstem. Findings of absent radionuclide confirmed on blood pool images. IMPRESSION:Limited assessment based on absence of delayed images. No supra tentorial blood flow was documented. Neurosurgery consulted - Dr. Farrell - no intervention at this time. * Palliative care was consulted, spoke with family, Goals of care will depend of brain flow test findings. Palliative care will follow up the patient and meet with his mother tomorrow who is traveling from [place] to offer support. * [facility] contacted. * Palliative care consulted * Currently in DI- given DDVAP 180 mcg, NS increased to 200 cc/hr. 09/21/16 * Patient is currently on Vasopressin 0.04 units/ min, levophed 10 units. Labs are being drawn Q6H as per sharing network. * Mother is arriving to [facility] at 6pm, we expect her here after that. * Plan is for possible repeat cerebral blood flow tomorrow afternoon after 3pm. Since patient had the study done yesterday, the radioisotope's half life is 24- 48, so to prevent background noise, the earliest the exam can be repeated is tomorrow afternoon. DW Js Joseph DO, PGY-1 <Abdirizak Valdez - Last Filed: 09/22/16 23:28> CCU Objective - Vital Signs / Intake & Output Vital Signs (Last 4 hours): Vital Signs Pulse Resp BP Pulse Ox 09/22/16 21:19 84 24 130/83 100 09/22/16 21:00 82 24 100 09/22/16 20:57 83 24 130/83 100 09/22/16 20:00 84 24 100 09/22/16 19:57 84 24 122/78 100 09/22/16 19:29 86 24 128/77 100 Intake and Output (Last 8hrs): Intake & Output 09/22/16 09/22/16 09/23/16 14:59 22:59 06:59 Intake Total 1147.2 571.4 Output Total 462 190 Balance 685.2 381.4 Weight 199 lb 5 oz Intake: Intake, IV Amount 1147.2 571.4 Left Proximal Port 1000 500 Left Distal Port Femoral 147.2 71.4 Output: Urine 462 190 Urethral (Price) 462 190 - Medications Active Medications: Active Medications Generic Name Dose Route Start Last Admin Trade Name Freq PRN Reason Stop Dose Admin Artificial Tears 0 gm 09/20/16 12:00 09/22/16 20:35 Lacri-Lube OU 3.5 gm Q4 ASTER Administration Propofol 100 mls @ 2.722 mls/hr 09/20/16 09:12 09/20/16 11:30 Diprivan IV 0 mcg/kg/min .Q24H PRN Titration TITRATE PER MD ORDER Protocol 5 MCG/KG/MIN Norepinephrine Bitartrate 8 mg 258 mls @ 7.74 mls/hr 09/20/16 14:02 09/22/16 21 :19 / Sodium Chloride IV 15.48 mls/hr .Q24H PRN Administration TITRATE PER MD ORDER Protocol 4 MCG/MIN Sodium Chloride 1,000 mls @ 125 mls/hr 09/20/16 20:15 09/22/16 20:35 Sodium Chloride 0.45% IV 125 mls/hr .Q8H ASTER Administration Vasopressin 40 units/ Sodium 40 mls @ 1.2 mls/hr 09/21/16 09:00 09/22/16 08:00 Chloride IV Not Given .Q24H ASTER Protocol 0.02 UNITS/MIN Pantoprazole Sodium 40 mg 09/20/16 14:00 09/22/16 09:13 Protonix Inj IVP 40 mg DAILY ASTER Administration Sodium Polystyrene Sulfonate 30 gm 09/21/16 18:30 09/22/16 18:30 Kayexalate Oral Susp PO Not Given Q6H ASTER - Patient Studies Lab Studies: Microbiology Studies 09/20/16 07:30 Blood Culture - Preliminary Blood NO GROWTH AFTER 48 HOURS 09/20/16 07:00 Blood Culture - Preliminary Blood NO GROWTH AFTER 48 HOURS Lab Studies 09/22/16 09/22/16 09/22/16 Range/Units 18:26 12:09 05:58 WBC 12.3 H D (4.8-10.8) K/uL RBC 4.02 L (4.40-5.90) Mil/uL Hgb 12.4 (12.0-18.0) g/dL Hct 38.7 (35.0-51.0) % MCV 96.3 H (80.0-94.0) fL MCH 30.9 (27.0-31.0) pg MCHC 32.1 L (33.0-37.0) g/dL RDW 14.9 H (11.5-14.5) % Plt Count 67 L D (130-400) K/uL MPV 9.0 (7.2-11.7) fL Neut % (Auto) 86.7 H (50.0-75.0) % Lymph % (Auto) 9.0 L (20.0-40.0) % Conway % (Auto) 3.9 (0.0-10.0) % Eos % (Auto) 0.0 (0.0-4.0) % Baso % (Auto) 0.4 (0.0-2.0) % Neut # 10.7 H (1.8-7.0) K/uL Lymph # 1.1 (1.0-4.3) K/uL Conway # 0.5 (0.0-0.8) K/uL Eos # 0.0 (0.0-0.7) K/uL Baso # 0.1 (0.0-0.2) K/uL Neutrophils % (Manual) 63 (50-75) % Band Neutrophils % 26 H* (0-2) % Lymphocytes % (Manual) 7 L (20-40) % Monocytes % (Manual) 3 (0-10) % Metamyelocytes % 1 H (0-0) % Toxic Granulation Present Platelet Estimate Decreased L (NORMAL) Large Platelets Present Polychromasia Slight Hypochromasia (manual) Slight Poikilocytosis (manual Slight Anisocytosis (manual) Slight Ovalocytes Slight [place] Cells Slight Puncture Site pCO2 (35-45) mm/Hg pO2 (80-100) mm/Hg HCO3 (21-28) mmol/L ABG pH (7.35-7.45) ABG Total CO2 (22-28) mmol/L ABG O2 Saturation (95-98) % ABG Base Excess (-2.0-3.0) mmol/L ABG Hemoglobin (11.7-17.4) g/dL ABG Carboxyhemoglobin (0.5-1.5) % POC ABG HHb (Measured) (0.0-5.0) % ABG Methemoglobin (0.0-3.0) % Sukhi Test A-a O2 Difference mm/Hg Respiratory Index Hgb O2 Saturation (95.0-98.0) % Mechanical Rate FiO2 % Tidal Volume PEEP Sodium 139 139 141 (132-148) mmol/L Potassium 4.1 4.6 5.1 (3.6-5.2) mmol/L Chloride 105 104 104 (98-107) mmol/L Carbon Dioxide 25 24 25 (22-30) mmol/L Anion Gap 14 15 17 (10-20) BUN 53 H 52 H 49 H (9-20) mg/dL Creatinine 4.9 H 5.1 H 5.1 H (0.8-1.5) MG/DL Est GFR ( Amer) 16 15 15 Est GFR (Non-Af Amer) 13 12 12 Random Glucose 177 H 186 H 156 H (75-110) mg/dL Lactic Acid 1.5 1.7 1.8 (0.7-2.1) mmol/L Calcium 7.2 L 7.0 L 7.0 L (8.6-10.4) mg/dl Ionized Calcium (4.80-5.60) mg/dL Total Bilirubin 3.7 H 2.9 H 1.9 H (0.2-1.3) mg/dL AST 1264 H 1772 H 2547 H (17-59) U/L ALT 3232 H 3428 H 4256 H (21-72) U/L Alkaline Phosphatase 109 104 113 (38-126) U/L CK-MB (Mass) 37.9 H (0.0-3.38) ng/mL Troponin I 0.3720 H* 0.5600 H* 0.9970 H* (0.00-0.120) ng/mL Total Protein 5.6 L 5.6 L 5.8 L (6.3-8.3) g/dL Albumin 2.8 L 2.8 L 2.9 L D (3.5-5.0) g/dL Globulin 2.9 2.8 2.9 (2.2-3.9) gm/dL Albumin/Globulin Ratio 1.0 1.0 1.0 (1.0-2.1) 09/22/16 09/22/16 09/20/16 Range/Units 05:27 01:21 20:10 WBC (4.8-10.8) K/uL RBC (4.40-5.90) Mil/uL Hgb (12.0-18.0) g/dL Hct (35.0-51.0) % MCV (80.0-94.0) fL MCH (27.0-31.0) pg MCHC (33.0-37.0) g/dL RDW (11.5-14.5) % Plt Count (130-400) K/uL MPV (7.2-11.7) fL Neut % (Auto) (50.0-75.0) % Lymph % (Auto) (20.0-40.0) % [place] % (Auto) (0.0-10.0) % Eos % (Auto) (0.0-4.0) % Baso % (Auto) (0.0-2.0) % Neut # (1.8-7.0) K/uL Lymph # (1.0-4.3) K/uL [place] # (0.0-0.8) K/uL Eos # (0.0-0.7) K/uL Baso # (0.0-0.2) K/uL Neutrophils % (Manual) (50-75) % Band Neutrophils % (0-2) % Lymphocytes % (Manual) (20-40) % Monocytes % (Manual) (0-10) % Metamyelocytes % (0-0) % Toxic Granulation Platelet Estimate (NORMAL) Large Platelets Polychromasia Hypochromasia (manual) Poikilocytosis (manual Anisocytosis (manual) Ovalocytes [place]gi Cells Puncture Site Rr pCO2 43 (35-45) mm/Hg pO2 106 H (80-100) mm/Hg HCO3 25.5 (21-28) mmol/L ABG pH 7.39 (7.35-7.45) ABG Total CO2 27.3 (22-28) mmol/L ABG O2 Saturation 98.8 H (95-98) % ABG Base Excess 0.8 (-2.0-3.0) mmol/L ABG Hemoglobin 12.7 (11.7-17.4) g/dL ABG Carboxyhemoglobin 1.1 (0.5-1.5) % POC ABG HHb (Measured) 1.2 (0.0-5.0) % ABG Methemoglobin 0.8 (0.0-3.0) % [place] Test Pos A-a O2 Difference 268.0 mm/Hg Respiratory Index 2.5 Hgb O2 Saturation 97.0 (95.0-98.0) % Mechanical Rate 24 FiO2 60.0 % Tidal Volume 500 PEEP 5 Sodium 142 (132-148) mmol/L Potassium 3.9 (3.6-5.2) mmol/L Chloride 111 H (98-107) mmol/L Carbon Dioxide 22 (22-30) mmol/L Anion Gap 13 (10-20) BUN 39 H (9-20) mg/dL Creatinine 3.7 H (0.8-1.5) MG/DL Est GFR ( Amer) 22 Est GFR (Non-Af Amer) 18 Random Glucose 110 (75-110) mg/dL Lactic Acid 1.4 (0.7-2.1) mmol/L Calcium 6.8 L (8.6-10.4) mg/dl Ionized Calcium 4.4 L (4.80-5.60) mg/dL Total Bilirubin 1.1 (0.2-1.3) mg/dL AST 3223 H (17-59) U/L ALT 4637 H (21-72) U/L Alkaline Phosphatase 83 (38-126) U/L CK-MB (Mass) (0.0-3.38) ng/mL Troponin I 1.2600 H* (0.00-0.120) ng/mL Total Protein 4.4 L (6.3-8.3) g/dL Albumin 2.0 L D (3.5-5.0) g/dL Globulin 2.4 (2.2-3.9) gm/dL Albumin/Globulin Ratio 0.8 L (1.0-2.1) Laboratory Results - last 24 hr 09/20/16 09/22/16 09/22/16 20:10 01:21 05:27 WBC RBC Hgb Hct MCV MCH MCHC RDW Plt Count MPV Neut % (Auto) Lymph % (Auto) [place] % (Auto) Eos % (Auto) Baso % (Auto) Neut # Lymph # [place] # Eos # Baso # Neutrophils % (Manual) Band Neutrophils % Lymphocytes % (Manual) Monocytes % (Manual) Metamyelocytes % Toxic Granulation Platelet Estimate Large Platelets Polychromasia Hypochromasia (manual) Poikilocytosis (manual Anisocytosis (manual) Ovalocytes [place] Cells Puncture Site Rr pCO2 43 pO2 106 H HCO3 25.5 ABG pH 7.39 ABG Total CO2 27.3 ABG O2 Saturation 98.8 H ABG Base Excess 0.8 ABG Hemoglobin 12.7 ABG Carboxyhemoglobin 1.1 POC ABG HHb (Measured) 1.2 ABG Methemoglobin 0.8 [place] Test Pos A-a O2 Difference 268.0 Respiratory Index 2.5 Hgb O2 Saturation 97.0 Mechanical Rate 24 FiO2 60.0 Tidal Volume 500 PEEP 5 Sodium 142 Potassium 3.9 Chloride 111 H Carbon Dioxide 22 Anion Gap 13 BUN 39 H Creatinine 3.7 H Est GFR ( Amer) 22 Est GFR (Non-Af Amer) 18 Random Glucose 110 Lactic Acid 1.4 Calcium 6.8 L Ionized Calcium 4.4 L Total Bilirubin 1.1 AST 3223 H ALT 4637 H Alkaline Phosphatase 83 CK-MB (Mass) Troponin I 1.2600 H* Total Protein 4.4 L Albumin 2.0 L D Globulin 2.4 Albumin/Globulin Ratio 0.8 L 09/22/16 09/22/16 09/22/16 05:58 12:09 18:26 WBC 12.3 H D RBC 4.02 L Hgb 12.4 Hct 38.7 MCV 96.3 H MCH 30.9 MCHC 32.1 L RDW 14.9 H Plt Count 67 L D MPV 9.0 Neut % (Auto) 86.7 H Lymph % (Auto) 9.0 L [place] % (Auto) 3.9 Eos % (Auto) 0.0 Baso % (Auto) 0.4 Neut # 10.7 H Lymph # 1.1 [place] # 0.5 Eos # 0.0 Baso # 0.1 Neutrophils % (Manual) 63 Band Neutrophils % 26 H* Lymphocytes % (Manual) 7 L Monocytes % (Manual) 3 Metamyelocytes % 1 H Toxic Granulation Present Platelet Estimate Decreased L Large Platelets Present Polychromasia Slight Hypochromasia (manual) Slight Poikilocytosis (manual Slight Anisocytosis (manual) Slight Ovalocytes Slight Giorgi Cells Slight Puncture Site pCO2 pO2 HCO3 ABG pH ABG Total CO2 ABG O2 Saturation ABG Base Excess ABG Hemoglobin ABG Carboxyhemoglobin POC ABG HHb (Measured) ABG Methemoglobin Sukhi Test A-a O2 Difference Respiratory Index Hgb O2 Saturation Mechanical Rate FiO2 Tidal Volume PEEP Sodium 141 139 139 Potassium 5.1 4.6 4.1 Chloride 104 104 105 Carbon Dioxide 25 24 25 Anion Gap 17 15 14 BUN 49 H 52 H 53 H Creatinine 5.1 H 5.1 H 4.9 H Est GFR ( Amer) 15 15 16 Est GFR (Non-Af Amer) 12 12 13 Random Glucose 156 H 186 H 177 H Lactic Acid 1.8 1.7 1.5 Calcium 7.0 L 7.0 L 7.2 L Ionized Calcium Total Bilirubin 1.9 H 2.9 H 3.7 H AST 2547 H 1772 H 1264 H ALT 4256 H 3428 H 3232 H Alkaline Phosphatase 113 104 109 CK-MB (Mass) 37.9 H Troponin I 0.9970 H* 0.5600 H* 0.3720 H* Total Protein 5.8 L 5.6 L 5.6 L Albumin 2.9 L D 2.8 L 2.8 L Globulin 2.9 2.8 2.9 Albumin/Globulin Ratio 1.0 1.0 1.0 Attending/Attestation - Attestation I have personally seen and examined this patient.: Yes I have fully participated in the care of the patient.: Yes I have reviewed all pertinent clinical information: Yes Notes (Text): Today: Wednesday, September 21, 2016 The Patient was seen and examined at the bedside, Medical records reviewed, all clinical/lab/hemodynamic/radiographic data were reviewed and management issues were discussed and formulated, Events reviewed Pain issues, skin care, head of the bed elevation, glycemic control were addressed. Agree with above treatment plans as transcribed in Dr. Weinstein note
[2016-09-21 18:05] LABS: ALB/GLOB RATIO 1.1 (1.0-2.1); BILIRUBIN,TOTAL 1.5 mg/dL (0.2-1.3); TOTAL PROTEIN 6.1 g/dL (6.3-8.3)
[2016-09-21 18:06] LABS: CALCIUM 6.6 mg/dl (8.6-10.4)
[2016-09-21 18:08] LABS: POTASSIUM 6.8 mmol/L (3.6-5.2)
[2016-09-21 18:19] LABS: TROPONIN I 2.18 ng/mL (0.00-0.120)
[2016-09-21] MEDS ORDERED: Dextrose 50% SYRINGE Inj (50 ml) IV STA (18:29)
[2016-09-21] MEDS: Sod Polystyrene Sulf 15 gm/60 ml Oral Susp PO SCH (18:58)
--- NOTE | 2016-09-22 00:11 | CP.PCM.PN ---
Subjective - Date & Time of Evaluation Date of Evaluation: 09/21/16 Time of Evaluation: 20:35 - Subjective Subjective: Subfalcine Herniation, he has irregular decorticate Rigidity. He is on Ventilator. [employer] [facility] is on the case to harvest his organs after having his family approval. Objective - Vital Signs/Intake and Output Vital Signs (last 24 hours): Temp Pulse Resp BP Pulse Ox 98.6 F 134 H 24 142/87 100 09/21/16 20:00 09/21/16 21:35 09/21/16 21:35 09/21/16 21:35 09/21/16 21:35 Intake and Output: 09/21/16 09/22/16 18:59 06:59 Intake Total 2634.1 154.3 Output Total 350 30 Balance 2284.1 124.3 - Medications Medications: Current Medications Artificial Tears (Lacri-Lube) 0 gm OU Q4 ASTER Last Admin: 09/21/16 20:35 Dose: 3.5 gm Propofol (Diprivan) 100 mls @ 2.722 mls/hr IV .Q24H PRN; Protocol; 5 MCG/KG/MIN PRN Reason: TITRATE PER MD ORDER Last Titration: 09/20/16 11:30 Dose: 0 mcg/kg/min Norepinephrine Bitartrate 8 mg (/ Sodium Chloride) 258 mls @ 7.74 mls/hr IV .Q24H PRN; Protocol; 4 MCG/MIN PRN Reason: TITRATE PER MD ORDER Last Admin: 09/21/16 16:48 Dose: 29.02 mls/hr Sodium Chloride (Sodium Chloride 0.45%) 1,000 mls @ 125 mls/hr IV .Q8H ASTER Last Admin: 09/21/16 21:15 Dose: 125 mls/hr Vasopressin 40 units/ Sodium (Chloride) 40 mls @ 1.2 mls/hr IV .Q24H ASTER; 0.02 UNITS/MIN PRN Reason: Protocol Last Admin: 09/21/16 09:05 Dose: 1.2 mls/hr Pantoprazole Sodium (Protonix Inj) 40 mg IVP DAILY ASTER Last Admin: 09/21/16 10:17 Dose: 40 mg Sodium Polystyrene Sulfonate (Kayexalate Oral Susp) 30 gm PO Q6H ASTER Last Admin: 09/21/16 18:58 Dose: 30 gm - Labs Labs: 09/21/16 06:12 09/21/16 17:49 PT 17.3 SECONDS (9.7-12.2) H 09/21/16 06:12 INR 1.5 09/21/16 06:12 APTT 28 SECONDS (21-34) D 09/21/16 06:12 Assessment and Plan (1) Cardiopulmonary arrest with successful resuscitation Status: Acute (2) Drug overdose Status: Acute (3) Decorticate posturing Status: Acute
[2016-09-22] MEDS: Sod Polystyrene Sulf 15 gm/60 ml Oral Susp PO SCH ×4 (01:25→18:30)
[2016-09-22 01:32] LABS: POTASSIUM 3.9 mmol/L (3.6-5.2)
[2016-09-22 01:35] LABS: ALB/GLOB RATIO 0.8 (1.0-2.1); BILIRUBIN,TOTAL 1.1 mg/dL (0.2-1.3); TOTAL PROTEIN 4.4 g/dL (6.3-8.3)
[2016-09-22 02:02] LABS: CALCIUM 6.8 mg/dl (8.6-10.4)
[2016-09-22 02:26] LABS: TROPONIN I 1.26 ng/mL (0.00-0.120)
[2016-09-22] MEDS: White Petrolatum/Mineral Oil Ophth Oint(3.5 gm) OU SCH ×6 (03:35→20:35)
[2016-09-22] MEDS: Sodium Chloride 0.45% 1,000 ML IV SCH ×3 (04:00→20:35)
[2016-09-22 05:35] LABS: ABG ALLEN TEST POS; ABG MECHANICAL RATE 24; ATERIAL BLOOD GAS PEEP 5; CARBOXYHEMOGLOBIN 1.1 % (0.5-1.5); DRAW SITE RR; HHB 1.2 % (0.0-5.0); METHEMOGLOBIN 0.8 % (0.0-3.0)
[2016-09-22 06:04] LABS: BASO # 0.1 K/uL (0.0-0.2); BASO % 0.4 % (0.0-2.0); HEMATOCRIT 38.7 % (35.0-51.0); LYMPH # 1.1 K/uL (1.0-4.3); MEAN CELL VOLUME 96.3 fL (80.0-94.0); MEAN CORPUSCULAR HEMOGLOBIN 30.9 pg (27.0-31.0); MEAN CORPUSCULAR HGB CONC 32.1 g/dL (33.0-37.0); MONO # 0.5 K/uL (0.0-0.8); MONO % 3.9 % (0.0-10.0); PLATELET COUNT 67 K/uL (130-400); RED CELL DISTRIBUTION WIDTH 14.9 % (11.5-14.5); WHITE BLOOD COUNT 12.3 K/uL (4.8-10.8)
[2016-09-22 06:17] LABS: POTASSIUM 5.1 mmol/L (3.6-5.2)
[2016-09-22 06:20] LABS: BILIRUBIN,TOTAL 1.9 mg/dL (0.2-1.3); TOTAL PROTEIN 5.8 g/dL (6.3-8.3)
[2016-09-22 06:34] LABS: TROPONIN I 0.997 ng/mL (0.00-0.120)
[2016-09-22 08:45] LABS: METAMYELOCYTE 1 % (0-0); NEUTROPHIL 63 % (50-75); TOTAL CELLS COUNTED 100
[2016-09-22 08:47] LABS: LARGE PLATELETS PRESENT
[2016-09-22 12:26] LABS: POTASSIUM 4.6 mmol/L (3.6-5.2)
[2016-09-22 12:28] LABS: BILIRUBIN,TOTAL 2.9 mg/dL (0.2-1.3); TOTAL PROTEIN 5.6 g/dL (6.3-8.3)
[2016-09-22 12:44] LABS: TROPONIN I 0.56 ng/mL (0.00-0.120)
--- NOTE | 2016-09-22 17:19 | CP.PCM.PN ---
Subjective - Date & Time of Evaluation Date of Evaluation: 09/22/16 Time of Evaluation: 17:14 - Subjective Subjective: NOT sedated on vent on pressors family at bedside no response to pain no pupillary response Objective - Vital Signs/Intake and Output Vital Signs (last 24 hours): Temp Pulse Resp BP Pulse Ox 97.9 F 90 24 128/88 100 09/22/16 12:00 09/22/16 15:00 09/22/16 15:00 09/22/16 15:00 09/22/16 15:00 Intake and Output: 09/22/16 09/22/16 06:59 18:59 Intake Total 1686.9 1291.0 Output Total 767 497 Balance 919.9 794.0 - Medications Medications: Current Medications Artificial Tears (Lacri-Lube) 0 gm OU Q4 ASTER Last Admin: 09/22/16 12:40 Dose: 3.5 gm Propofol (Diprivan) 100 mls @ 2.722 mls/hr IV .Q24H PRN; Protocol; 5 MCG/KG/MIN PRN Reason: TITRATE PER MD ORDER Last Titration: 09/20/16 11:30 Dose: 0 mcg/kg/min Norepinephrine Bitartrate 8 mg (/ Sodium Chloride) 258 mls @ 7.74 mls/hr IV .Q24H PRN; Protocol; 4 MCG/MIN PRN Reason: TITRATE PER MD ORDER Last Titration: 09/22/16 12:00 Dose: 10 mcg/min Sodium Chloride (Sodium Chloride 0.45%) 1,000 mls @ 125 mls/hr IV .Q8H ASTER Last Admin: 09/22/16 12:42 Dose: 125 mls/hr Vasopressin 40 units/ Sodium (Chloride) 40 mls @ 1.2 mls/hr IV .Q24H ASTER; 0.02 UNITS/MIN PRN Reason: Protocol Last Titration: 09/22/16 03:30 Dose: 0 units/min Pantoprazole Sodium (Protonix Inj) 40 mg IVP DAILY ASTER Last Admin: 09/22/16 09:13 Dose: 40 mg Sodium Polystyrene Sulfonate (Kayexalate Oral Susp) 30 gm PO Q6H ASTER Last Admin: 09/22/16 12:44 Dose: 30 gm - Labs Labs: 09/22/16 05:58 09/22/16 12:09 PT 17.3 SECONDS (9.7-12.2) H 09/21/16 06:12 INR 1.5 09/21/16 06:12 APTT 28 SECONDS (21-34) D 09/21/16 06:12 - Head Exam Head Exam: ATRAUMATIC - Eye Exam Eye Exam: absent: PERRL Pupil Exam: absent: PERRL Additional comments: no response dilated - ENT Exam Additional comments: ET tube - Respiratory Exam Respiratory Exam: absent: Clear to Ausculation Bilateral Additional comments: coarse bs - Cardiovascular Exam Cardiovascular Exam: REGULAR RHYTHM, +S1, +S2. absent: Murmur - GI/Abdominal Exam GI & Abdominal Exam: Soft, Normal Bowel Sounds. absent: Tenderness - Neurological Exam Neurological Exam: absent: Alert, Awake, Oriented x3 Assessment and Plan - Assessment and Plan (Free Text) Assessment: anoxic brain injury cardiopulmonary arrest heroin overdose cocaine overdose diffuse subarachanoid hemorrhage diffuse cerebral edema severe metabolic acidosis on admission Poor prognosis on pressors on vent without sedation. Family aware of poor prognosis but want full continued treatment. Mother at bedside currently in denial of son's conditions.
--- NOTE | 2016-09-22 18:18 | CP.CCUPN ---
CCU Subjective - Physician Review Events Since Last Encounter (Free Text): 09/22/16 18:11 Patient is on ventilator, unresponsive, family is at bedside. No gag and cough reflex. Pupils are fixed and dilated. Patient has hypotension, and not able to do the brain flow study today because of the instability. Patient yesterday had episode of hypotension, bradycardia No new changes today. CCU Objective - Vital Signs / Intake & Output Vital Signs (Last 4 hours): Vital Signs Pulse Resp BP Pulse Ox 09/22/16 15:00 90 24 128/88 100 09/22/16 14:57 90 24 128/88 100 on ventilator, full support ventilation. Intake and Output (Last 8hrs): Intake & Output 09/22/16 09/22/16 09/22/16 06:59 14:59 22:59 Intake Total 1109.0 1147.2 143.8 Output Total 536 462 35 Balance 573.0 685.2 108.8 Weight 199 lb 5 oz Intake: Intake, IV Amount 1109.0 1147.2 143.8 Left Proximal Port 1000 1000 125 Left Distal Port 6.0 Left Distal Port Femoral 103 147.2 18.8 Output: Urine 536 462 35 Urethral (Price) 536 462 35 - Physical Exam Head: Positive for: Laceration Pupils: Positive for: Non-Reactive - Medications Active Medications: Active Medications Generic Name Dose Route Start Last Admin Trade Name Freq PRN Reason Stop Dose Admin Artificial Tears 0 gm 09/20/16 12:00 09/22/16 12:40 Lacri-Lube OU 3.5 gm Q4 ASTER Administration Propofol 100 mls @ 2.722 mls/hr 09/20/16 09:12 09/20/16 11:30 Diprivan IV 0 mcg/kg/min .Q24H PRN Titration TITRATE PER MD ORDER Protocol 5 MCG/KG/MIN Norepinephrine Bitartrate 8 mg 258 mls @ 7.74 mls/hr 09/20/16 14:02 09/22/16 12 :00 / Sodium Chloride IV 10 mcg/min .Q24H PRN Titration TITRATE PER MD ORDER Protocol 4 MCG/MIN Sodium Chloride 1,000 mls @ 125 mls/hr 09/20/16 20:15 09/22/16 12:42 Sodium Chloride 0.45% IV 125 mls/hr .Q8H ASTER Administration Vasopressin 40 units/ Sodium 40 mls @ 1.2 mls/hr 09/21/16 09:00 09/22/16 03:30 Chloride IV 0 units/min .Q24H ASTER Titration Protocol 0.02 UNITS/MIN Pantoprazole Sodium 40 mg 09/20/16 14:00 09/22/16 09:13 Protonix Inj IVP 40 mg DAILY ASTER Administration Sodium Polystyrene Sulfonate 30 gm 09/21/16 18:30 09/22/16 12:44 Kayexalate Oral Susp PO 30 gm Q6H ASTER Administration - Patient Studies Lab Studies: Microbiology Studies 09/20/16 07:30 Blood Culture - Preliminary Blood NO GROWTH AFTER 48 HOURS 09/20/16 07:00 Blood Culture - Preliminary Blood NO GROWTH AFTER 48 HOURS 09/20/16 07:46 MRSA Culture (Admit) - Final Nose MRSA NOT DETECTED Lab Studies 09/22/16 09/22/16 09/22/16 Range/Units 12:09 05:58 05:27 WBC 12.3 H D (4.8-10.8) K/uL RBC 4.02 L (4.40-5.90) Mil/uL Hgb 12.4 (12.0-18.0) g/dL Hct 38.7 (35.0-51.0) % MCV 96.3 H (80.0-94.0) fL MCH 30.9 (27.0-31.0) pg MCHC 32.1 L (33.0-37.0) g/dL RDW 14.9 H (11.5-14.5) % Plt Count 67 L D (130-400) K/uL MPV 9.0 (7.2-11.7) fL Neut % (Auto) 86.7 H (50.0-75.0) % Lymph % (Auto) 9.0 L (20.0-40.0) % [place] % (Auto) 3.9 (0.0-10.0) % Eos % (Auto) 0.0 (0.0-4.0) % Baso % (Auto) 0.4 (0.0-2.0) % Neut # 10.7 H (1.8-7.0) K/uL Lymph # 1.1 (1.0-4.3) K/uL [place] # 0.5 (0.0-0.8) K/uL Eos # 0.0 (0.0-0.7) K/uL Baso # 0.1 (0.0-0.2) K/uL Neutrophils % (Manual) 63 (50-75) % Band Neutrophils % 26 H* (0-2) % Lymphocytes % (Manual) 7 L (20-40) % Monocytes % (Manual) 3 (0-10) % Metamyelocytes % 1 H (0-0) % Toxic Granulation Present Platelet Estimate Decreased L (NORMAL) Large Platelets Present Polychromasia Slight Hypochromasia (manual) Slight Poikilocytosis (manual Slight Anisocytosis (manual) Slight Ovalocytes Slight Giorgi Cells Slight Puncture Site Rr pCO2 43 (35-45) mm/Hg pO2 106 H (80-100) mm/Hg HCO3 25.5 (21-28) mmol/L ABG pH 7.39 (7.35-7.45) ABG Total CO2 27.3 (22-28) mmol/L ABG O2 Saturation 98.8 H (95-98) % ABG Base Excess 0.8 (-2.0-3.0) mmol/L ABG Hemoglobin 12.7 (11.7-17.4) g/dL ABG Carboxyhemoglobin 1.1 (0.5-1.5) % POC ABG HHb (Measured) 1.2 (0.0-5.0) % ABG Methemoglobin 0.8 (0.0-3.0) % Sukhi Test Pos A-a O2 Difference 268.0 mm/Hg Respiratory Index 2.5 Hgb O2 Saturation 97.0 (95.0-98.0) % Mechanical Rate 24 FiO2 60.0 % Tidal Volume 500 PEEP 5 Sodium 139 141 (132-148) mmol/L Potassium 4.6 5.1 (3.6-5.2) mmol/L Chloride 104 104 (98-107) mmol/L Carbon Dioxide 24 25 (22-30) mmol/L Anion Gap 15 17 (10-20) BUN 52 H 49 H (9-20) mg/dL Creatinine 5.1 H 5.1 H (0.8-1.5) MG/DL Est GFR ( Amer) 15 15 Est GFR (Non-Af Amer) 12 12 Random Glucose 186 H 156 H (75-110) mg/dL Lactic Acid 1.7 1.8 (0.7-2.1) mmol/L Calcium 7.0 L 7.0 L (8.6-10.4) mg/dl Ionized Calcium (4.80-5.60) mg/dL Total Bilirubin 2.9 H 1.9 H (0.2-1.3) mg/dL AST 1772 H 2547 H (17-59) U/L ALT 3428 H 4256 H (21-72) U/L Alkaline Phosphatase 104 113 (38-126) U/L CK-MB (Mass) 37.9 H (0.0-3.38) ng/mL Troponin I 0.5600 H* 0.9970 H* (0.00-0.120) ng/mL Total Protein 5.6 L 5.8 L (6.3-8.3) g/dL Albumin 2.8 L 2.9 L D (3.5-5.0) g/dL Globulin 2.8 2.9 (2.2-3.9) gm/dL Albumin/Globulin Ratio 1.0 1.0 (1.0-2.1) 09/22/16 09/21/16 09/20/16 Range/Units 01:21 17:49 20:10 WBC (4.8-10.8) K/uL RBC (4.40-5.90) Mil/uL Hgb (12.0-18.0) g/dL Hct (35.0-51.0) % MCV (80.0-94.0) fL MCH (27.0-31.0) pg MCHC (33.0-37.0) g/dL RDW (11.5-14.5) % Plt Count (130-400) K/uL MPV (7.2-11.7) fL Neut % (Auto) (50.0-75.0) % Lymph % (Auto) (20.0-40.0) % [place] % (Auto) (0.0-10.0) % Eos % (Auto) (0.0-4.0) % Baso % (Auto) (0.0-2.0) % Neut # (1.8-7.0) K/uL Lymph # (1.0-4.3) K/uL [place] # (0.0-0.8) K/uL Eos # (0.0-0.7) K/uL Baso # (0.0-0.2) K/uL Neutrophils % (Manual) (50-75) % Band Neutrophils % (0-2) % Lymphocytes % (Manual) (20-40) % Monocytes % (Manual) (0-10) % Metamyelocytes % (0-0) % Toxic Granulation Platelet Estimate (NORMAL) Large Platelets Polychromasia Hypochromasia (manual) Poikilocytosis (manual Anisocytosis (manual) Ovalocytes Giorgi Cells Puncture Site pCO2 (35-45) mm/Hg pO2 (80-100) mm/Hg HCO3 (21-28) mmol/L ABG pH (7.35-7.45) ABG Total CO2 (22-28) mmol/L ABG O2 Saturation (95-98) % ABG Base Excess (-2.0-3.0) mmol/L ABG Hemoglobin (11.7-17.4) g/dL ABG Carboxyhemoglobin (0.5-1.5) % POC ABG HHb (Measured) (0.0-5.0) % ABG Methemoglobin (0.0-3.0) % Sukhi Test A-a O2 Difference mm/Hg Respiratory Index Hgb O2 Saturation (95.0-98.0) % Mechanical Rate FiO2 % Tidal Volume PEEP Sodium 142 (132-148) mmol/L Potassium 3.9 (3.6-5.2) mmol/L Chloride 111 H (98-107) mmol/L Carbon Dioxide 22 (22-30) mmol/L Anion Gap 13 (10-20) BUN 39 H (9-20) mg/dL Creatinine 3.7 H (0.8-1.5) MG/DL Est GFR ( Amer) 22 Est GFR (Non-Af Amer) 18 Random Glucose 110 (75-110) mg/dL Lactic Acid 1.4 (0.7-2.1) mmol/L Calcium 6.8 L (8.6-10.4) mg/dl Ionized Calcium 4.4 L (4.80-5.60) mg/dL Total Bilirubin 1.1 (0.2-1.3) mg/dL AST 3223 H 5568 H (17-59) U/L ALT 4637 H 5645 H (21-72) U/L Alkaline Phosphatase 83 (38-126) U/L CK-MB (Mass) (0.0-3.38) ng/mL Troponin I 1.2600 H* 2.1800 H* (0.00-0.120) ng/mL Total Protein 4.4 L (6.3-8.3) g/dL Albumin 2.0 L D (3.5-5.0) g/dL Globulin 2.4 (2.2-3.9) gm/dL Albumin/Globulin Ratio 0.8 L (1.0-2.1) Laboratory Results - last 24 hr 09/20/16 09/21/16 09/22/16 20:10 17:49 01:21 WBC RBC Hgb Hct MCV MCH MCHC RDW Plt Count MPV Neut % (Auto) Lymph % (Auto) [place] % (Auto) Eos % (Auto) Baso % (Auto) Neut # Lymph # [place] # Eos # Baso # Neutrophils % (Manual) Band Neutrophils % Lymphocytes % (Manual) Monocytes % (Manual) Metamyelocytes % Toxic Granulation Platelet Estimate Large Platelets Polychromasia Hypochromasia (manual) Poikilocytosis (manual Anisocytosis (manual) Ovalocytes Giorgi Cells Puncture Site pCO2 pO2 HCO3 ABG pH ABG Total CO2 ABG O2 Saturation ABG Base Excess ABG Hemoglobin ABG Carboxyhemoglobin POC ABG HHb (Measured) ABG Methemoglobin Sukhi Test A-a O2 Difference Respiratory Index Hgb O2 Saturation Mechanical Rate FiO2 Tidal Volume PEEP Sodium 142 Potassium 3.9 Chloride 111 H Carbon Dioxide 22 Anion Gap 13 BUN 39 H Creatinine 3.7 H Est GFR ( Amer) 22 Est GFR (Non-Af Amer) 18 Random Glucose 110 Lactic Acid 1.4 Calcium 6.8 L Ionized Calcium 4.4 L Total Bilirubin 1.1 AST 5568 H 3223 H ALT 5645 H 4637 H Alkaline Phosphatase 83 CK-MB (Mass) Troponin I 2.1800 H* 1.2600 H* Total Protein 4.4 L Albumin 2.0 L D Globulin 2.4 Albumin/Globulin Ratio 0.8 L 09/22/16 09/22/16 09/22/16 05:27 05:58 12:09 WBC 12.3 H D RBC 4.02 L Hgb 12.4 Hct 38.7 MCV 96.3 H MCH 30.9 MCHC 32.1 L RDW 14.9 H Plt Count 67 L D MPV 9.0 Neut % (Auto) 86.7 H Lymph % (Auto) 9.0 L [place] % (Auto) 3.9 Eos % (Auto) 0.0 Baso % (Auto) 0.4 Neut # 10.7 H Lymph # 1.1 [place] # 0.5 Eos # 0.0 Baso # 0.1 Neutrophils % (Manual) 63 Band Neutrophils % 26 H* Lymphocytes % (Manual) 7 L Monocytes % (Manual) 3 Metamyelocytes % 1 H Toxic Granulation Present Platelet Estimate Decreased L Large Platelets Present Polychromasia Slight Hypochromasia (manual) Slight Poikilocytosis (manual Slight Anisocytosis (manual) Slight Ovalocytes Slight Giorgi Cells Slight Puncture Site Rr pCO2 43 pO2 106 H HCO3 25.5 ABG pH 7.39 ABG Total CO2 27.3 ABG O2 Saturation 98.8 H ABG Base Excess 0.8 ABG Hemoglobin 12.7 ABG Carboxyhemoglobin 1.1 POC ABG HHb (Measured) 1.2 ABG Methemoglobin 0.8 Sukhi Test Pos A-a O2 Difference 268.0 Respiratory Index 2.5 Hgb O2 Saturation 97.0 Mechanical Rate 24 FiO2 60.0 Tidal Volume 500 PEEP 5 Sodium 141 139 Potassium 5.1 4.6 Chloride 104 104 Carbon Dioxide 25 24 Anion Gap 17 15 BUN 49 H 52 H Creatinine 5.1 H 5.1 H Est GFR ( Amer) 15 15 Est GFR (Non-Af Amer) 12 12 Random Glucose 156 H 186 H Lactic Acid 1.8 1.7 Calcium 7.0 L 7.0 L Ionized Calcium Total Bilirubin 1.9 H 2.9 H AST 2547 H 1772 H ALT 4256 H 3428 H Alkaline Phosphatase 113 104 CK-MB (Mass) 37.9 H Troponin I 0.9970 H* 0.5600 H* Total Protein 5.8 L 5.6 L Albumin 2.9 L D 2.8 L Globulin 2.9 2.8 Albumin/Globulin Ratio 1.0 1.0 Assessment/Plan (1) Cardiopulmonary arrest with successful resuscitation Assessment and plan: Patient with a cardiac arrest, associated with the anoxic encephalopathy. Patient is hemodynamically unstable. Continue the current treatment. Once the patient is stable will plan for the brain flow study, EEG and further neurological workup Current Visit: Yes Status: Acute (2) Drug overdose Current Visit: Yes Status: Acute
[2016-09-22 18:40] LABS: POTASSIUM 4.1 mmol/L (3.6-5.2)
[2016-09-22 18:42] LABS: BILIRUBIN,TOTAL 3.7 mg/dL (0.2-1.3); CALCIUM 7.2 mg/dl (8.6-10.4); TOTAL PROTEIN 5.6 g/dL (6.3-8.3)
[2016-09-22 18:59] LABS: TROPONIN I 0.372 ng/mL (0.00-0.120)
--- NOTE | 2016-09-22 22:15 | CP.PCM.PN ---
Subjective - Date & Time of Evaluation Date of Evaluation: 09/22/16 Time of Evaluation: 20:45 - Subjective Subjective: He is not improving and is getting an EEG soon to r/o brain Objective - Vital Signs/Intake and Output Vital Signs (last 24 hours): Temp Pulse Resp BP Pulse Ox 97.8 F 84 24 130/83 100 09/22/16 16:00 09/22/16 21:19 09/22/16 21:19 09/22/16 21:19 09/22/16 21:19 Intake and Output: 09/22/16 09/23/16 18:59 06:59 Intake Total 1718.6 Output Total 652 Balance 1066.6 - Medications Medications: Current Medications Artificial Tears (Lacri-Lube) 0 gm OU Q4 ASTER Last Admin: 09/22/16 20:35 Dose: 3.5 gm Propofol (Diprivan) 100 mls @ 2.722 mls/hr IV .Q24H PRN; Protocol; 5 MCG/KG/MIN PRN Reason: TITRATE PER MD ORDER Last Titration: 09/20/16 11:30 Dose: 0 mcg/kg/min Norepinephrine Bitartrate 8 mg (/ Sodium Chloride) 258 mls @ 7.74 mls/hr IV .Q24H PRN; Protocol; 4 MCG/MIN PRN Reason: TITRATE PER MD ORDER Last Admin: 09/22/16 21:19 Dose: 15.48 mls/hr Sodium Chloride (Sodium Chloride 0.45%) 1,000 mls @ 125 mls/hr IV .Q8H ASTER Last Admin: 09/22/16 20:35 Dose: 125 mls/hr Vasopressin 40 units/ Sodium (Chloride) 40 mls @ 1.2 mls/hr IV .Q24H ASTER; 0.02 UNITS/MIN PRN Reason: Protocol Last Admin: 09/22/16 08:00 Dose: Not Given Pantoprazole Sodium (Protonix Inj) 40 mg IVP DAILY ASTER Last Admin: 09/22/16 09:13 Dose: 40 mg Sodium Polystyrene Sulfonate (Kayexalate Oral Susp) 30 gm PO Q6H ASTER Last Admin: 09/22/16 18:30 Dose: Not Given - Labs Labs: 09/22/16 05:58 09/22/16 18:26 PT 17.3 SECONDS (9.7-12.2) H 09/21/16 06:12 INR 1.5 09/21/16 06:12 APTT 28 SECONDS (21-34) D 09/21/16 06:12 Assessment and Plan (1) Cardiopulmonary arrest with successful resuscitation Status: Acute (2) Drug overdose Status: Acute (3) Decorticate posturing Status: Acute
[2016-09-23] MEDS: White Petrolatum/Mineral Oil Ophth Oint(3.5 gm) OU SCH ×6 (00:10→20:00)
[2016-09-23 00:33] LABS: POTASSIUM 3.7 mmol/L (3.6-5.2)
[2016-09-23 00:35] LABS: BILIRUBIN,TOTAL 4.1 mg/dL (0.2-1.3); CALCIUM 7.3 mg/dl (8.6-10.4); TOTAL PROTEIN 5.4 g/dL (6.3-8.3)
[2016-09-23 00:56] LABS: TROPONIN I 0.291 ng/mL (0.00-0.120)
[2016-09-23] MEDS: Sod Polystyrene Sulf 15 gm/60 ml Oral Susp PO SCH ×4 (01:00→17:50)
[2016-09-23] MEDS: Sodium Chloride 0.45% 1,000 ML IV SCH ×4 (05:15→22:45)
[2016-09-23 06:58] LABS: POTASSIUM 3.5 mmol/L (3.6-5.2)
[2016-09-23 07:00] LABS: ALB/GLOB RATIO 0.9 (1.0-2.1); BILIRUBIN,TOTAL 4.2 mg/dL (0.2-1.3); TOTAL PROTEIN 5.2 g/dL (6.3-8.3)
[2016-09-23 07:01] LABS: CALCIUM 7.3 mg/dl (8.6-10.4)
[2016-09-23 07:08] LABS: TROPONIN I 0.25 ng/mL (0.00-0.120)
--- NOTE | 2016-09-23 08:05 | CP.PCM.PN ---
Subjective - Date & Time of Evaluation Date of Evaluation: 09/23/16 Time of Evaluation: 07:55 - Subjective Subjective: Medical Attending Note: Follow-UP.; Anoxic Brain Injury, Cardiopulmonary Arrest, Heroin Overdose, Cocaine Overdose, Diffuse subarachnoid hemorrhage, Diffuse cerebral edema, Severe metabolic acidosis Patient seen, examined, with patient's aunt and patient's mother at bedside. Patient is vented, intubated. Patient is unresponsive to painful stimuli, voice, and name. Unable to review clincal ROS secondary to patient's clinical state. Objective - Vital Signs/Intake and Output Vital Signs (last 24 hours): Temp Pulse Resp BP Pulse Ox 98.8 F 75 24 126/76 100 09/23/16 04:00 09/23/16 07:00 09/23/16 07:00 09/23/16 06:57 09/23/16 07:00 Intake and Output: 09/23/16 09/23/16 06:59 18:59 Intake Total 1455 131 Output Total 825 75 Balance 630 56 - Medications Medications: Current Medications Artificial Tears (Lacri-Lube) 0 gm OU Q4 SATER Last Admin: 09/23/16 04:00 Dose: 3.5 gm Propofol (Diprivan) 100 mls @ 2.722 mls/hr IV .Q24H PRN; Protocol; 5 MCG/KG/MIN PRN Reason: TITRATE PER MD ORDER Last Titration: 09/20/16 11:30 Dose: 0 mcg/kg/min Norepinephrine Bitartrate 8 mg (/ Sodium Chloride) 258 mls @ 7.74 mls/hr IV .Q24H PRN; Protocol; 4 MCG/MIN PRN Reason: TITRATE PER MD ORDER Last Titration: 09/23/16 04:00 Dose: 6 mcg/min Sodium Chloride (Sodium Chloride 0.45%) 1,000 mls @ 125 mls/hr IV .Q8H ASTER Last Admin: 09/23/16 05:15 Dose: 125 mls/hr Vasopressin 40 units/ Sodium (Chloride) 40 mls @ 1.2 mls/hr IV .Q24H ASTER; 0.02 UNITS/MIN PRN Reason: Protocol Last Admin: 09/22/16 08:00 Dose: Not Given Pantoprazole Sodium (Protonix Inj) 40 mg IVP DAILY ASTER Last Admin: 09/22/16 09:13 Dose: 40 mg Sodium Polystyrene Sulfonate (Kayexalate Oral Susp) 30 gm PO Q6H ASTER Last Admin: 09/23/16 05:57 Dose: Not Given - Labs Labs: 09/22/16 05:58 09/23/16 06:29 PT 17.3 SECONDS (9.7-12.2) H 09/21/16 06:12 INR 1.5 09/21/16 06:12 APTT 28 SECONDS (21-34) D 09/21/16 06:12 - Constitutional Appears: Younger Than Stated Age - Head Exam Head Exam: ATRAUMATIC - Eye Exam Eye Exam: absent: EOMI, Nystagmus Pupil Exam: Mydriatic Additional comments: unreactive to light, dilated - ENT Exam ENT Exam: Mucous Membranes Dry Additional comments: ET tube - Respiratory Exam Respiratory Exam: absent: Clear to Ausculation Bilateral Additional comments: coarse breathe sounds, on vent - Cardiovascular Exam Cardiovascular Exam: REGULAR RHYTHM, +S1, +S2. absent: Murmur - GI/Abdominal Exam GI & Abdominal Exam: Soft, Normal Bowel Sounds. absent: Distended, Firm, Guarding, Rigid, Tenderness, Rebound - Neurological Exam Neurological Exam: absent: Alert, Awake, Oriented x3 - Skin Skin Exam: Normal Color, Warm Assessment and Plan (1) Anoxic brain injury Assessment & Plan: Neurology (Dr. Alexis) on case-->help appreciated CT head (09/20/16): diffuse subarachnoid hemorrhage with small localized clot or possible small aneurysm. Diffuse significant cerebral edema with effacement of sulci and compression of the ventricles (further findings per EMR) Brain flow (09/20/16): limited assessment based on absence od delayed images. No supratentorial blood flow was documented Status: Acute (2) Cardiopulmonary arrest Status: Acute (3) Heroin overdose Status: Acute (4) Cocaine overdose Status: Acute (5) Subarachnoid bleed Status: Acute (6) Cerebral edema Status: Acute (7) Metabolic acidosis Status: Acute - Assessment and Plan (Free Text) Assessment: Patient is currently on one pressor and IV fluids. Protonix 40mg IV q daily for GI ppx Contraindication to VTE secondary subarachnoid hemorrhage Patient awaiting further neurological workup-->brain flow, eeg. Ordered for HIV 1 and 2 and Hepatitis panel given drug use. Poor prognosis. Spoke briefly to mother at bedside.
[2016-09-23 09:35] LABS: MAGNESIUM 1.7 mg/dL (1.6-2.3)
--- NOTE | 2016-09-23 11:50 | CP.CCUPN ---
CCU Subjective - Physician Review Events Since Last Encounter (Free Text): 09/23/16 11:49 Patient is a current condition unchanged. Unresponsive. Dilated people. No gag or cough reflex. Hypotension on norepinephrine Unstable still. Continue to monitor. CCU Objective - Vital Signs / Intake & Output Vital Signs (Last 4 hours): Vital Signs Temp Pulse Resp BP Pulse Ox 09/23/16 10:58 87 24 149/93 H 100 09/23/16 10:00 75 24 99 09/23/16 09:57 74 24 108/61 99 09/23/16 09:00 71 24 123/73 100 09/23/16 08:57 71 24 123/73 99 09/23/16 08:00 93.4 F L 73 24 117/67 98 09/23/16 07:57 74 24 117/67 98 Intake and Output (Last 8hrs): Intake & Output 09/22/16 09/23/16 09/23/16 22:59 06:59 14:59 Intake Total 970.4 1056 677.4 Output Total 415 600 450 Balance 555.4 456 227.4 Weight 198 lb 6 oz Intake: Intake, IV Amount 970.4 1056 677.4 Left Proximal Port 875 1000 625 Left Distal Port Femoral 95.4 56 52.4 Output: Urine 415 600 450 Urethral (Price) 415 600 450 Other: # Bowel Movements 1 - Physical Exam Narrative Physical Exam (Free Text): 09/23/16 11:49 Unresponsive pupils dilated no cough reflux Head: Positive for: Laceration Pupils: Positive for: Non-Reactive - Medications Active Medications: Active Medications Generic Name Dose Route Start Last Admin Trade Name Freq PRN Reason Stop Dose Admin Artificial Tears 0 gm 09/20/16 12:00 09/23/16 09:23 Lacri-Lube OU 3.5 gm Q4 ASTER Administration Propofol 100 mls @ 2.722 mls/hr 09/20/16 09:12 09/20/16 11:30 Diprivan IV 0 mcg/kg/min .Q24H PRN Titration TITRATE PER MD ORDER Protocol 5 MCG/KG/MIN Norepinephrine Bitartrate 8 mg 258 mls @ 7.74 mls/hr 09/20/16 14:02 09/23/16 04 :00 / Sodium Chloride IV 6 mcg/min .Q24H PRN Titration TITRATE PER MD ORDER Protocol 4 MCG/MIN Sodium Chloride 1,000 mls @ 125 mls/hr 09/20/16 20:15 09/23/16 05:15 Sodium Chloride 0.45% IV 125 mls/hr .Q8H ASTER Administration Vasopressin 40 units/ Sodium 40 mls @ 1.2 mls/hr 09/21/16 09:00 09/23/16 09:23 Chloride IV Not Given .Q24H ASTER Protocol 0.02 UNITS/MIN Pantoprazole Sodium 40 mg 09/20/16 14:00 09/23/16 10:46 Protonix Inj IVP 40 mg DAILY ASTER Administration Sodium Polystyrene Sulfonate 30 gm 09/21/16 18:30 09/23/16 05:57 Kayexalate Oral Susp PO Not Given Q6H ASTER - Patient Studies Lab Studies: Microbiology Studies 09/20/16 07:30 Blood Culture - Preliminary Blood NO GROWTH AFTER 3 DAYS 09/20/16 07:00 Blood Culture - Preliminary Blood NO GROWTH AFTER 3 DAYS Lab Studies 09/23/16 09/23/16 09/23/16 Range/Units 06:34 06:29 00:21 Sodium 140 140 (132-148) mmol/L Potassium 3.5 L 3.7 (3.6-5.2) mmol/L Chloride 107 106 (98-107) mmol/L Carbon Dioxide 24 24 (22-30) mmol/L Anion Gap 13 14 (10-20) BUN 49 H 50 H (9-20) mg/dL Creatinine 4.6 H 4.8 H (0.8-1.5) MG/DL Est GFR ( Amer) 17 16 Est GFR (Non-Af Amer) 14 13 Random Glucose 170 H 169 H (75-110) mg/dL Lactic Acid 1.2 1.2 (0.7-2.1) mmol/L Calcium 7.3 L 7.3 L (8.6-10.4) mg/dl Magnesium 1.7 (1.6-2.3) mg/dL Total Bilirubin 4.2 H 4.1 H (0.2-1.3) mg/dL AST 742 H D 952 H D (17-59) U/L ALT 2516 H 2807 H (21-72) U/L Alkaline Phosphatase 105 108 (38-126) U/L Troponin I 0.2500 H* 0.2910 H* (0.00-0.120) ng/mL Total Protein 5.2 L 5.4 L (6.3-8.3) g/dL Albumin 2.5 L 2.7 L (3.5-5.0) g/dL Globulin 2.7 2.8 (2.2-3.9) gm/dL Albumin/Globulin Ratio 0.9 L 1.0 (1.0-2.1) 09/22/16 09/22/16 Range/Units 18:26 12:09 Sodium 139 139 (132-148) mmol/L Potassium 4.1 4.6 (3.6-5.2) mmol/L Chloride 105 104 (98-107) mmol/L Carbon Dioxide 25 24 (22-30) mmol/L Anion Gap 14 15 (10-20) BUN 53 H 52 H (9-20) mg/dL Creatinine 4.9 H 5.1 H (0.8-1.5) MG/DL Est GFR ( Amer) 16 15 Est GFR (Non-Af Amer) 13 12 Random Glucose 177 H 186 H (75-110) mg/dL Lactic Acid 1.5 1.7 (0.7-2.1) mmol/L Calcium 7.2 L 7.0 L (8.6-10.4) mg/dl Magnesium (1.6-2.3) mg/dL Total Bilirubin 3.7 H 2.9 H (0.2-1.3) mg/dL AST 1264 H 1772 H (17-59) U/L ALT 3232 H 3428 H (21-72) U/L Alkaline Phosphatase 109 104 (38-126) U/L Troponin I 0.3720 H* 0.5600 H* (0.00-0.120) ng/mL Total Protein 5.6 L 5.6 L (6.3-8.3) g/dL Albumin 2.8 L 2.8 L (3.5-5.0) g/dL Globulin 2.9 2.8 (2.2-3.9) gm/dL Albumin/Globulin Ratio 1.0 1.0 (1.0-2.1) Laboratory Results - last 24 hr 09/22/16 09/22/16 09/23/16 12:09 18:26 00:21 Sodium 139 139 140 Potassium 4.6 4.1 3.7 Chloride 104 105 106 Carbon Dioxide 24 25 24 Anion Gap 15 14 14 BUN 52 H 53 H 50 H Creatinine 5.1 H 4.9 H 4.8 H Est GFR ( Amer) 15 16 16 Est GFR (Non-Af Amer) 12 13 13 Random Glucose 186 H 177 H 169 H Lactic Acid 1.7 1.5 1.2 Calcium 7.0 L 7.2 L 7.3 L Magnesium Total Bilirubin 2.9 H 3.7 H 4.1 H AST 1772 H 1264 H 952 H D ALT 3428 H 3232 H 2807 H Alkaline Phosphatase 104 109 108 Troponin I 0.5600 H* 0.3720 H* 0.2910 H* Total Protein 5.6 L 5.6 L 5.4 L Albumin 2.8 L 2.8 L 2.7 L Globulin 2.8 2.9 2.8 Albumin/Globulin Ratio 1.0 1.0 1.0 09/23/16 09/23/16 06:29 06:34 Sodium 140 Potassium 3.5 L Chloride 107 Carbon Dioxide 24 Anion Gap 13 BUN 49 H Creatinine 4.6 H Est GFR ( Amer) 17 Est GFR (Non-Af Amer) 14 Random Glucose 170 H Lactic Acid 1.2 Calcium 7.3 L Magnesium 1.7 Total Bilirubin 4.2 H AST 742 H D ALT 2516 H Alkaline Phosphatase 105 Troponin I 0.2500 H* Total Protein 5.2 L Albumin 2.5 L Globulin 2.7 Albumin/Globulin Ratio 0.9 L Review of Systems - Review of Systems All systems: reviewed and no additional remarkable complaints except Assessment/Plan (1) Cardiopulmonary arrest with successful resuscitation Assessment and plan: Patient with a cardiac arrest, associated with the anoxic encephalopathy. Patient is hemodynamically unstable. Continue the current treatment. Once the patient is stable will plan for the brain flow study, EEG and further neurological workup Patient with a cardiac arrest, anoxic and severe bradycardia. Possibly patient has brain , but still awaiting for further recess. Possibly will do the brain flow in the morning, EEG, Current Visit: Yes Status: Acute (2) Drug overdose Current Visit: Yes Status: Acute
[2016-09-23 12:13] LABS: BASO % 0.1 % (0.0-2.0); EOS # 0.1 K/uL (0.0-0.7); EOS % 0.7 % (0.0-4.0); HEMATOCRIT 31.7 % (35.0-51.0); LYMPH # 1.3 K/uL (1.0-4.3); MEAN CELL VOLUME 95.4 fL (80.0-94.0); MEAN CORPUSCULAR HEMOGLOBIN 30.7 pg (27.0-31.0); MEAN CORPUSCULAR HGB CONC 32.2 g/dL (33.0-37.0); MEAN PLATELET VOLUME 8.9 fL (7.2-11.7); MONO # 0.4 K/uL (0.0-0.8); MONO % 3.5 % (0.0-10.0); RED CELL DISTRIBUTION WIDTH 14.5 % (11.5-14.5); WHITE BLOOD COUNT 11.8 K/uL (4.8-10.8)
[2016-09-23 12:20] LABS: POTASSIUM 3.3 mmol/L (3.6-5.2)
[2016-09-23 12:22] LABS: ALB/GLOB RATIO 0.9 (1.0-2.1); BILIRUBIN,TOTAL 4.1 mg/dL (0.2-1.3); TOTAL PROTEIN 5.2 g/dL (6.3-8.3)
[2016-09-23 12:23] LABS: CALCIUM 7.3 mg/dl (8.6-10.4)
[2016-09-23] MEDS: Potassium Chloride 20 mEq 100 ML IVPB ONE (18:06)
[2016-09-23 18:30] LABS: POTASSIUM 3.3 mmol/L (3.6-5.2)
[2016-09-23 18:32] LABS: ALB/GLOB RATIO 0.9 (1.0-2.1); BILIRUBIN,TOTAL 3.7 mg/dL (0.2-1.3)
[2016-09-23 18:33] LABS: CALCIUM 7.2 mg/dl (8.6-10.4)
--- NOTE | 2016-09-23 21:05 | CP.PCM.PN ---
Subjective - Date & Time of Evaluation Date of Evaluation: 09/23/16 Time of Evaluation: 21:04 - Subjective Subjective: Not responsive to treatment, sharing is involved. H/O Multiple substance abuse. Objective - Vital Signs/Intake and Output Vital Signs (last 24 hours): Temp Pulse Resp BP Pulse Ox 96.8 F L 84 24 112/64 100 09/23/16 16:00 09/23/16 19:00 09/23/16 19:00 09/23/16 18:57 09/23/16 19:00 Intake and Output: 09/23/16 09/24/16 18:59 06:59 Intake Total 1716.0 136.6 Output Total 1246 Balance 470.0 136.6 - Medications Medications: Current Medications Artificial Tears (Lacri-Lube) 0 gm OU Q4 ASTER Last Admin: 09/23/16 20:00 Dose: 3.5 gm Propofol (Diprivan) 100 mls @ 2.722 mls/hr IV .Q24H PRN; Protocol; 5 MCG/KG/MIN PRN Reason: TITRATE PER MD ORDER Last Titration: 09/20/16 11:30 Dose: 0 mcg/kg/min Norepinephrine Bitartrate 8 mg (/ Sodium Chloride) 258 mls @ 7.74 mls/hr IV .Q24H PRN; Protocol; 4 MCG/MIN PRN Reason: TITRATE PER MD ORDER Last Titration: 09/23/16 18:18 Dose: 6 mcg/min Sodium Chloride (Sodium Chloride 0.45%) 1,000 mls @ 125 mls/hr IV .Q8H ASTER Last Admin: 09/23/16 12:12 Dose: 125 mls/hr Vasopressin 40 units/ Sodium (Chloride) 40 mls @ 1.2 mls/hr IV .Q24H ASTER; 0.02 UNITS/MIN PRN Reason: Protocol Last Admin: 09/23/16 09:23 Dose: Not Given Pantoprazole Sodium (Protonix Inj) 40 mg IVP DAILY ASTER Last Admin: 09/23/16 10:46 Dose: 40 mg Sodium Polystyrene Sulfonate (Kayexalate Oral Susp) 30 gm PO Q6H ASTER Last Admin: 09/23/16 17:50 Dose: Not Given - Labs Labs: 09/23/16 12:05 09/23/16 18:19 PT 17.3 SECONDS (9.7-12.2) H 09/21/16 06:12 INR 1.5 09/21/16 06:12 APTT 28 SECONDS (21-34) D 09/21/16 06:12 Assessment and Plan (1) Cardiopulmonary arrest with successful resuscitation Status: Acute (2) Drug overdose Status: Acute (3) Decorticate posturing Status: Acute
[2016-09-23 23:50] LABS: POTASSIUM 3.5 mmol/L (3.6-5.2)
[2016-09-23 23:52] LABS: BILIRUBIN,TOTAL 4.2 mg/dL (0.2-1.3)
[2016-09-23 23:53] LABS: ALB/GLOB RATIO 0.9 (1.0-2.1); CALCIUM 7.3 mg/dl (8.6-10.4); TOTAL PROTEIN 5.2 g/dL (6.3-8.3)
[2016-09-24] MEDS ORDERED: Potassium Chloride 20 mEq 100 ML IVPB ONE ×2 (00:27→05:00)
[2016-09-24] MEDS: Sod Polystyrene Sulf 15 gm/60 ml Oral Susp PO SCH ×5 (01:30→23:52)
[2016-09-24] MEDS: White Petrolatum/Mineral Oil Ophth Oint(3.5 gm) OU SCH ×3 (04:00→08:50)
[2016-09-24] MEDS: Potassium Chloride 20 mEq 100 ML IVPB ONE (04:25)
[2016-09-24] MEDS: Sodium Chloride 0.45% 1,000 ML IV SCH ×3 (05:50→23:55)
[2016-09-24 06:41] LABS: BASO % 0.2 % (0.0-2.0); EOS % 0.6 % (0.0-4.0); LYMPH # 1.3 K/uL (1.0-4.3); LYMPH % 21.8 % (20.0-40.0); MEAN CELL VOLUME 95.3 fL (80.0-94.0); MEAN CORPUSCULAR HEMOGLOBIN 31.3 pg (27.0-31.0); MEAN CORPUSCULAR HGB CONC 32.9 g/dL (33.0-37.0); MEAN PLATELET VOLUME 9.2 fL (7.2-11.7); MONO # 0.3 K/uL (0.0-0.8); NRBC % 0.1 % (0.0-2.0); RED CELL DISTRIBUTION WIDTH 14.8 % (11.5-14.5); WHITE BLOOD COUNT 6.1 K/uL (4.8-10.8)
[2016-09-24 06:52] LABS: ALB/GLOB RATIO 0.8 (1.0-2.1); BILIRUBIN,TOTAL 3.8 mg/dL (0.2-1.3); CALCIUM 7.6 mg/dl (8.6-10.4); PHOSPHOROUS 1.7 mg/dL (2.5-4.5); TOTAL PROTEIN 5.3 g/dL (6.3-8.3)
[2016-09-24 06:53] LABS: MAGNESIUM 1.9 mg/dL (1.6-2.3)
--- NOTE | 2016-09-24 10:18 | RAD ---
HISTORY: intubated COMPARISON: 09/21/2016 FINDINGS: LUNGS: Hazy opacity in the lung bases. PLEURA: No significant pleural effusion identified, no pneumothorax apparent. CARDIOVASCULAR: Enlarged heart. OSSEOUS STRUCTURES: No significant abnormalities. VISUALIZED UPPER ABDOMEN: Upper abdomen is suboptimally evaluated. OTHER FINDINGS: ETT with the distal tip above the tracheal bifurcation. NG tube with the distal tip seen coursing below the diaphragm. IMPRESSION: ET tube noted with the distal tip above the tracheal bifurcation. Other findings as above.
--- NOTE | 2016-09-24 10:25 | CP.CCUPN ---
CCU Subjective - Physician Review Subjective (Free Text): Patient seen and examined at bedside. Vent Settings: FiO2 100, PEEP 5, Tvolume 500, RR 24. Currently on Levophed 5 units. Will perform EEG, Cerebral blood flow if patient is stable enough and possibly apnea test at bedside, if he is unable to tolerate the nuclear exam. CCU Objective - Vital Signs / Intake & Output Vital Signs (Last 4 hours): Vital Signs Pulse Resp BP Pulse Ox 09/24/16 08:00 75 24 99 09/24/16 07:57 75 24 101/61 99 09/24/16 07:00 75 24 99 09/24/16 06:57 76 24 102/61 99 Intake and Output (Last 8hrs): Intake & Output 09/23/16 09/24/16 09/24/16 22:59 06:59 14:59 Intake Total 2285.6 1090.4 136.3 Output Total 950 1125 100 Balance 1335.6 -34.6 36.3 Weight 198 lb Intake: Intake, IV Amount 2285.6 1090.4 136.3 Left Proximal Port 2100 1000 125 Left Medial Port 100 Left Distal Port Femoral 85.6 90.4 11.3 Output: Urine 950 1125 100 Urethral (Price) 950 1125 100 - Physical Exam Head: Positive for: Normocephalic Pupils: Positive for: Non-Reactive - Medications Active Medications: Active Medications Generic Name Dose Route Start Last Admin Trade Name Freq PRN Reason Stop Dose Admin Artificial Tears 0 gm 09/20/16 12:00 09/24/16 08:50 Lacri-Lube OU 3.5 gm Q4 ASTER Administration Propofol 100 mls @ 2.722 mls/hr 09/20/16 09:12 09/20/16 11:30 Diprivan IV 0 mcg/kg/min .Q24H PRN Titration TITRATE PER MD ORDER Protocol 5 MCG/KG/MIN Norepinephrine Bitartrate 8 mg 258 mls @ 7.74 mls/hr 09/20/16 14:02 09/23/16 21 :00 / Sodium Chloride IV 11.3 mls/hr .Q24H PRN Administration TITRATE PER MD ORDER Protocol 4 MCG/MIN Vasopressin 40 units/ Sodium 40 mls @ 1.2 mls/hr 09/21/16 09:00 09/23/16 09:23 Chloride IV Not Given .Q24H ASTER Protocol 0.02 UNITS/MIN Sodium Chloride 1,000 mls @ 125 mls/hr 09/23/16 22:45 09/24/16 05:50 Sodium Chloride 0.45% IV 125 mls/hr .Q8H ASTER Administration Pantoprazole Sodium 40 mg 09/20/16 14:00 09/23/16 10:46 Protonix Inj IVP 40 mg DAILY ASTER Administration Sodium Polystyrene Sulfonate 30 gm 09/21/16 18:30 09/24/16 06:30 Kayexalate Oral Susp PO Not Given Q6H ASTER - Patient Studies Lab Studies: Microbiology Studies 09/20/16 07:30 Blood Culture - Preliminary Blood NO GROWTH AFTER 4 DAYS 09/20/16 07:00 Blood Culture - Preliminary Blood NO GROWTH AFTER 4 DAYS Lab Studies 09/24/16 09/23/16 09/23/16 Range/Units 06:33 23:35 18:19 WBC 6.1 (4.8-10.8) K/uL RBC 3.15 L (4.40-5.90) Mil/uL Hgb 9.9 L (12.0-18.0) g/dL Hct 30.0 L (35.0-51.0) % MCV 95.3 H (80.0-94.0) fL MCH 31.3 H (27.0-31.0) pg MCHC 32.9 L (33.0-37.0) g/dL RDW 14.8 H (11.5-14.5) % Plt Count 51 L (130-400) K/uL MPV 9.2 (7.2-11.7) fL Neut % (Auto) 72.4 (50.0-75.0) % Lymph % (Auto) 21.8 (20.0-40.0) % [place] % (Auto) 5.0 (0.0-10.0) % Eos % (Auto) 0.6 (0.0-4.0) % Baso % (Auto) 0.2 (0.0-2.0) % Neut # 4.4 (1.8-7.0) K/uL Lymph # 1.3 (1.0-4.3) K/uL [place] # 0.3 (0.0-0.8) K/uL Eos # 0.0 (0.0-0.7) K/uL Baso # 0.0 (0.0-0.2) K/uL Sodium 148 144 142 (132-148) mmol/L Potassium 4.0 3.5 L 3.3 L (3.6-5.2) mmol/L Chloride 115 H 112 H 110 H (98-107) mmol/L Carbon Dioxide 23 22 20 L (22-30) mmol/L Anion Gap 14 14 15 (10-20) BUN 45 H 45 H 49 H (9-20) mg/dL Creatinine 4.0 H 4.0 H 4.0 H (0.8-1.5) MG/DL Est GFR ( Amer) 20 20 20 Est GFR (Non-Af Amer) 16 16 16 Random Glucose 161 H 168 H 151 H (75-110) mg/dL Lactic Acid (0.7-2.1) mmol/L Calcium 7.6 L 7.3 L 7.2 L (8.6-10.4) mg/dl Phosphorus 1.7 L (2.5-4.5) mg/dL Magnesium 1.9 (1.6-2.3) mg/dL Total Bilirubin 3.8 H 4.2 H 3.7 H (0.2-1.3) mg/dL AST 346 H 430 H 512 H (17-59) U/L ALT 1558 H 1821 H 1816 H (21-72) U/L Alkaline Phosphatase 99 100 95 (38-126) U/L Total Creatine Kinase 2464 H (55-170) U/L CK-MB (Mass) 9.87 H (0.0-3.38) ng/mL Troponin I, Quant 0.1960 H* (0.00-0.120) ng/mL Total Protein 5.3 L 5.2 L 5.0 L (6.3-8.3) g/dL Albumin 2.4 L 2.5 L 2.4 L (3.5-5.0) g/dL Globulin 2.9 2.7 2.7 (2.2-3.9) gm/dL Albumin/Globulin Ratio 0.8 L 0.9 L 0.9 L (1.0-2.1) Hepatitis A IgM Ab (NEGATIVE) Hep Bs Antigen (NEGATIVE) Hep B Core IgM Ab (NEGATIVE) Hepatitis C Antibody (NEGATIVE) HIV 1&2 Antibody Screen (NEGATIVE) 09/23/16 09/23/16 Range/Units 12:05 12:01 WBC 11.8 H (4.8-10.8) K/uL RBC 3.32 L (4.40-5.90) Mil/uL Hgb 10.2 L D (12.0-18.0) g/dL Hct 31.7 L (35.0-51.0) % MCV 95.4 H (80.0-94.0) fL MCH 30.7 (27.0-31.0) pg MCHC 32.2 L (33.0-37.0) g/dL RDW 14.5 (11.5-14.5) % Plt Count 52 L (130-400) K/uL MPV 8.9 (7.2-11.7) fL Neut % (Auto) 84.7 H (50.0-75.0) % Lymph % (Auto) 11.0 L (20.0-40.0) % [place] % (Auto) 3.5 (0.0-10.0) % Eos % (Auto) 0.7 (0.0-4.0) % Baso % (Auto) 0.1 (0.0-2.0) % Neut # 10.0 H (1.8-7.0) K/uL Lymph # 1.3 (1.0-4.3) K/uL [place] # 0.4 (0.0-0.8) K/uL Eos # 0.1 (0.0-0.7) K/uL Baso # 0.0 (0.0-0.2) K/uL Sodium 140 (132-148) mmol/L Potassium 3.3 L (3.6-5.2) mmol/L Chloride 107 (98-107) mmol/L Carbon Dioxide 23 (22-30) mmol/L Anion Gap 13 (10-20) BUN 48 H (9-20) mg/dL Creatinine 4.4 H (0.8-1.5) MG/DL Est GFR ( Amer) 18 Est GFR (Non-Af Amer) 15 Random Glucose 168 H (75-110) mg/dL Lactic Acid 1.2 (0.7-2.1) mmol/L Calcium 7.3 L (8.6-10.4) mg/dl Phosphorus (2.5-4.5) mg/dL Magnesium (1.6-2.3) mg/dL Total Bilirubin 4.1 H (0.2-1.3) mg/dL AST 637 H (17-59) U/L ALT 2152 H (21-72) U/L Alkaline Phosphatase 104 (38-126) U/L Total Creatine Kinase (55-170) U/L CK-MB (Mass) (0.0-3.38) ng/mL Troponin I, Quant (0.00-0.120) ng/mL Total Protein 5.2 L (6.3-8.3) g/dL Albumin 2.5 L (3.5-5.0) g/dL Globulin 2.7 (2.2-3.9) gm/dL Albumin/Globulin Ratio 0.9 L (1.0-2.1) Hepatitis A IgM Ab Negative (NEGATIVE) Hep Bs Antigen Negative (NEGATIVE) Hep B Core IgM Ab Negative (NEGATIVE) Hepatitis C Antibody Reactive H (NEGATIVE) HIV 1&2 Antibody Screen Negative (NEGATIVE) Laboratory Results - last 24 hr 09/23/16 09/23/16 09/23/16 12:01 12:05 18:19 WBC 11.8 H RBC 3.32 L Hgb 10.2 L D Hct 31.7 L MCV 95.4 H MCH 30.7 MCHC 32.2 L RDW 14.5 Plt Count 52 L MPV 8.9 Neut % (Auto) 84.7 H Lymph % (Auto) 11.0 L [place] % (Auto) 3.5 Eos % (Auto) 0.7 Baso % (Auto) 0.1 Neut # 10.0 H Lymph # 1.3 [place] # 0.4 Eos # 0.1 Baso # 0.0 Sodium 140 142 Potassium 3.3 L 3.3 L Chloride 107 110 H Carbon Dioxide 23 20 L Anion Gap 13 15 BUN 48 H 49 H Creatinine 4.4 H 4.0 H Est GFR ( Amer) 18 20 Est GFR (Non-Af Amer) 15 16 Random Glucose 168 H 151 H Lactic Acid 1.2 Calcium 7.3 L 7.2 L Phosphorus Magnesium Total Bilirubin 4.1 H 3.7 H AST 637 H 512 H ALT 2152 H 1816 H Alkaline Phosphatase 104 95 Total Creatine Kinase CK-MB (Mass) Troponin I, Quant Total Protein 5.2 L 5.0 L Albumin 2.5 L 2.4 L Globulin 2.7 2.7 Albumin/Globulin Ratio 0.9 L 0.9 L Hepatitis A IgM Ab Negative Hep Bs Antigen Negative Hep B Core IgM Ab Negative Hepatitis C Antibody Reactive H HIV 1&2 Antibody Screen Negative 09/23/16 09/24/16 23:35 06:33 WBC 6.1 RBC 3.15 L Hgb 9.9 L Hct 30.0 L MCV 95.3 H MCH 31.3 H MCHC 32.9 L RDW 14.8 H Plt Count 51 L MPV 9.2 Neut % (Auto) 72.4 Lymph % (Auto) 21.8 [place] % (Auto) 5.0 Eos % (Auto) 0.6 Baso % (Auto) 0.2 Neut # 4.4 Lymph # 1.3 [place] # 0.3 Eos # 0.0 Baso # 0.0 Sodium 144 148 Potassium 3.5 L 4.0 Chloride 112 H 115 H Carbon Dioxide 22 23 Anion Gap 14 14 BUN 45 H 45 H Creatinine 4.0 H 4.0 H Est GFR ( Amer) 20 20 Est GFR (Non-Af Amer) 16 16 Random Glucose 168 H 161 H Lactic Acid Calcium 7.3 L 7.6 L Phosphorus 1.7 L Magnesium 1.9 Total Bilirubin 4.2 H 3.8 H AST 430 H 346 H ALT 1821 H 1558 H Alkaline Phosphatase 100 99 Total Creatine Kinase 2464 H CK-MB (Mass) 9.87 H Troponin I, Quant 0.1960 H* Total Protein 5.2 L 5.3 L Albumin 2.5 L 2.4 L Globulin 2.7 2.9 Albumin/Globulin Ratio 0.9 L 0.8 L Hepatitis A IgM Ab Hep Bs Antigen Hep B Core IgM Ab Hepatitis C Antibody HIV 1&2 Antibody Screen Assessment/Plan - Assessment and Plan (Free Text) Assessment: 46M with PMHx of heroine abuse found unresponsive s/p cardiac arrest found to have subarachnoid hemorrhage. Plan: S/P cardiopulmonary arrest, Anoxic Brain Injury * Upon arrival in the ICU, patient had a seizure- he was given ativan and started on a propofol drip. ABG revealed severe respiratory and metabolic acidosis, EK with 1st degree HB, ETT in place, no pneumothorax. Patient was unresponsive, pupils were fixed and dilated (equal), no corneal reflex, no gag reflex, no spontaneous respirations, patient is not breathing over the vent. * Currently on Levophed * Head CT showed: Diffuse subarachnoid hemorrhage with small localized clot or possibly small aneurysm in the region of the anterior communicating artery. Diffuse significant cerebral edema with effacement of sulci and compression of the ventricles. Cerebral edema also affects the posterior fossa structures with questionable tonsillar herniation. There may also be early significant hypoxic changes within the lateral basal nuclei bilaterally. * Hypothermia protocol was contraindicated due to subarachnoid hemorrhage * Neurology was consulted: Dr. Alexis - Cerebral Flow study ordered revealed: Bolus injection of technetium DTPA is of diagnostic quality. Flow was not evident above the brainstem. Findings of absent radionuclide confirmed on blood pool images. IMPRESSION: Limited assessment based on absence of delayed images. No supra tentorial blood flow was documented. Neurosurgery consulted - Dr. Farrell - no intervention at this time. * Palliative care was consulted, spoke with family, Goals of care will depend of brain flow test findings. Palliative care will follow up the patient and meet with his mother tomorrow who is traveling from [place] to offer support. * [facility] contacted. * Palliative care consulted * Currently on NS increased to 125 cc/hr, levophed 5 units * EEG, if patient is stable enough then Cerebral blood flow exam will be repeated, if patient is unstable then bedside apnea test. SAVANA Weinstein DO, PGY-1
[2016-09-24 11:12] LABS: ABG ALLEN TEST PO; ARTERIAL BLOOD HGB O2 SAT 96.4 % (95.0-98.0); ATERIAL BLOOD GAS PEEP 5; CARBOXYHEMOGLOBIN 1.1 % (0.5-1.5); DRAW SITE RRA; HHB 1.7 % (0.0-5.0); METHEMOGLOBIN 0.7 % (0.0-3.0)
--- NOTE | 2016-09-24 13:40 | CP.PCM.PN ---
Subjective - Date & Time of Evaluation Date of Evaluation: 09/24/16 Time of Evaluation: 22:00 - Subjective Subjective: Patient unresponsive Objective - Vital Signs/Intake and Output Vital Signs (last 24 hours): Temp Pulse Resp BP Pulse Ox 98.3 F 73 24 96/51 L 99 09/24/16 12:00 09/24/16 12:00 09/24/16 12:00 09/24/16 11:57 09/24/16 12:00 Intake and Output: 09/24/16 09/24/16 06:59 18:59 Intake Total 2736.2 817.8 Output Total 1550 510 Balance 1186.2 307.8 - Medications Medications: Current Medications Propofol (Diprivan) 100 mls @ 2.722 mls/hr IV .Q24H PRN; Protocol; 5 MCG/KG/MIN PRN Reason: TITRATE PER MD ORDER Last Titration: 09/20/16 11:30 Dose: 0 mcg/kg/min Norepinephrine Bitartrate 8 mg (/ Sodium Chloride) 258 mls @ 7.74 mls/hr IV .Q24H PRN; Protocol; 4 MCG/MIN PRN Reason: TITRATE PER MD ORDER Last Admin: 09/23/16 21:00 Dose: 11.3 mls/hr Vasopressin 40 units/ Sodium (Chloride) 40 mls @ 1.2 mls/hr IV .Q24H ASTER; 0.02 UNITS/MIN PRN Reason: Protocol Last Admin: 09/24/16 10:58 Dose: Not Given Sodium Chloride (Sodium Chloride 0.45%) 1,000 mls @ 125 mls/hr IV .Q8H ASTER Last Admin: 09/24/16 05:50 Dose: 125 mls/hr Pantoprazole Sodium (Protonix Inj) 40 mg IVP DAILY ASTER Last Admin: 09/24/16 11:00 Dose: 40 mg Sodium Polystyrene Sulfonate (Kayexalate Oral Susp) 30 gm PO Q6H ASTER Last Admin: 09/24/16 11:36 Dose: Not Given - Labs Labs: 09/24/16 06:33 09/24/16 06:33 PT 17.3 SECONDS (9.7-12.2) H 09/21/16 06:12 INR 1.5 09/21/16 06:12 APTT 28 SECONDS (21-34) D 09/21/16 06:12 - Constitutional Appears: In Acute Distress - Head Exam Head Exam: ATRAUMATIC, NORMAL INSPECTION, NORMOCEPHALIC - Eye Exam Pupil Exam: Fixed - ENT Exam ENT Exam: Mucous Membranes Dry - Neck Exam Neck Exam: Normal Inspection - Respiratory Exam Respiratory Exam: Decreased Breath Sounds Additional comments: On MV - Cardiovascular Exam Cardiovascular Exam: Tachycardia, Irregular Rhythm - GI/Abdominal Exam GI & Abdominal Exam: Hypoactive Bowel Sounds - Rectal Exam Rectal Exam: Deferred - Exam Exam: NORMAL INSPECTION - Extremities Exam Extremities Exam: Normal Inspection - Back Exam Back Exam: NORMAL INSPECTION - Neurological Exam Neurological Exam: Motor Sensory Deficit Neuro motor strength exam: Left Upper Extremity: 0, Right Upper Extremity: 0, Left Lower Extremity: 0, Right Lower Extremity: 0 - Psychiatric Exam Psychiatric exam: Flat Affect - Skin Skin Exam: Dry Assessment and Plan - Assessment and Plan (Free Text) Assessment: Patient remains unresponsive to stimuli with fixed pupils, absent gag reflex and on epinephrine. The brain flow study is pending . Prognosis remains grim. With patient's mother Sarah at bed side I reviewed patient's clinical presentation. The mother seemed informed on situation by the ICU team and had no many questions. Very gently, I suggested that neurological exam is very poor and we needed one more exam to evaluate brain activity before patient was diagnosed with brain . She agreed but looked like if she was growing some hope. The mother asked for the brain flow study to be done, once patient gets "more stable". I reassured her that we would only do what was safe for patient and also corrected her knowledge regarding brain functions. The mother is expecting arrival of her two daughters. Impression * Very poor neuro exam * Mother at bed side with emotions of denial, waiting for the son " to get better" * Brain flow study needed to confirm brain Suggestion * Mother will need a lot of concealing regarding her son's status * Pastoral care for spiritual support * [facility] should be made aware of
--- NOTE | 2016-09-25 01:14 | CP.PCM.PN ---
Subjective - Date & Time of Evaluation Date of Evaluation: 09/24/16 Time of Evaluation: 20:50 - Subjective Subjective: EEG is Performed. Patient is not doing well. He is flaccid now. His is expected by sharing to harvest him. His Positive Hepatitis C Abs make him no more a donor for sharing. Objective - Vital Signs/Intake and Output Vital Signs (last 24 hours): Temp Pulse Resp BP Pulse Ox 99.3 F 83 24 115/63 100 09/25/16 00:00 09/24/16 23:57 09/24/16 23:57 09/24/16 23:57 09/24/16 23:57 Intake and Output: 09/24/16 09/25/16 18:59 06:59 Intake Total 1635.6 817.8 Output Total 2051 750 Balance -415.4 67.8 - Medications Medications: Current Medications Propofol (Diprivan) 100 mls @ 2.722 mls/hr IV .Q24H PRN; Protocol; 5 MCG/KG/MIN PRN Reason: TITRATE PER MD ORDER Last Titration: 09/20/16 11:30 Dose: 0 mcg/kg/min Norepinephrine Bitartrate 8 mg (/ Sodium Chloride) 258 mls @ 7.74 mls/hr IV .Q24H PRN; Protocol; 4 MCG/MIN PRN Reason: TITRATE PER MD ORDER Last Admin: 09/24/16 19:22 Dose: 11.3 mls/hr Vasopressin 40 units/ Sodium (Chloride) 40 mls @ 1.2 mls/hr IV .Q24H ASTER; 0.02 UNITS/MIN PRN Reason: Protocol Last Admin: 09/24/16 10:58 Dose: Not Given Sodium Chloride (Sodium Chloride 0.45%) 1,000 mls @ 125 mls/hr IV .Q8H ASTER Last Admin: 09/24/16 23:55 Dose: 125 mls/hr Pantoprazole Sodium (Protonix Inj) 40 mg IVP DAILY ASTER Last Admin: 09/24/16 11:00 Dose: 40 mg Sodium Polystyrene Sulfonate (Kayexalate Oral Susp) 30 gm PO Q6H ASTER Last Admin: 09/24/16 23:52 Dose: Not Given - Labs Labs: 09/24/16 06:33 09/24/16 06:33 PT 17.3 SECONDS (9.7-12.2) H 09/21/16 06:12 INR 1.5 09/21/16 06:12 APTT 28 SECONDS (21-34) D 09/21/16 06:12 Assessment and Plan (1) Cardiopulmonary arrest with successful resuscitation Status: Acute (2) Drug overdose Status: Acute (3) Decorticate posturing Status: Acute (4) Hepatitis C antibody positive in blood Status: Acute
[2016-09-25 06:50] LABS: POTASSIUM 4.5 mmol/L (3.6-5.2)
[2016-09-25 06:52] LABS: BILIRUBIN,TOTAL 4.7 mg/dL (0.2-1.3)
[2016-09-25 06:53] LABS: ALB/GLOB RATIO 0.8 (1.0-2.1); MAGNESIUM 2.1 mg/dL (1.6-2.3); PHOSPHOROUS 2.7 mg/dL (2.5-4.5); TOTAL PROTEIN 5.7 g/dL (6.3-8.3)
[2016-09-25 06:54] LABS: BASO % 0.4 % (0.0-2.0); EOS # 0.1 K/uL (0.0-0.7); EOS % 1.3 % (0.0-4.0); HEMATOCRIT 31.3 % (35.0-51.0); LYMPH # 1.8 K/uL (1.0-4.3); MEAN CELL VOLUME 96.1 fL (80.0-94.0); MEAN CORPUSCULAR HEMOGLOBIN 31.1 pg (27.0-31.0); MEAN CORPUSCULAR HGB CONC 32.3 g/dL (33.0-37.0); MEAN PLATELET VOLUME 9.2 fL (7.2-11.7); MONO # 0.5 K/uL (0.0-0.8); NRBC % 0.3 % (0.0-2.0); RED CELL DISTRIBUTION WIDTH 14.9 % (11.5-14.5); WHITE BLOOD COUNT 7.1 K/uL (4.8-10.8)
[2016-09-25] MEDS: Sod Polystyrene Sulf 15 gm/60 ml Oral Susp PO SCH ×2 (07:55→12:46)
[2016-09-25] MEDS: Sodium Chloride 0.45% 1,000 ML IV SCH ×2 (07:56→14:26)
--- NOTE | 2016-09-25 09:27 | CP.PCM.PN ---
Subjective - Date & Time of Evaluation Date of Evaluation: 09/25/16 Time of Evaluation: 09:20 - Subjective Subjective: Medical Attending Note: Follow-UP.; Anoxic Brain Injury, Cardiopulmonary Arrest, Heroin Overdose, Cocaine Overdose, Diffuse subarachnoid hemorrhage, Diffuse cerebral edema, Severe metabolic acidosis Patient seen, examined, with patient's mother at bedside. Patient is vented, intubated. Patient is unresponsive to painful stimuli, voice, and name. Unable to review clincal ROS secondary to patient's clinical state. Patient is currently on pressor. Objective - Vital Signs/Intake and Output Vital Signs (last 24 hours): Temp Pulse Resp BP Pulse Ox 98.7 F 86 24 117/62 100 09/25/16 04:00 09/25/16 06:00 09/25/16 06:00 09/25/16 06:00 09/25/16 06:00 Intake and Output: 09/25/16 09/25/16 06:59 18:59 Intake Total 1635.6 Output Total 1900 Balance -264.4 - Medications Medications: Current Medications Propofol (Diprivan) 100 mls @ 2.722 mls/hr IV .Q24H PRN; Protocol; 5 MCG/KG/MIN PRN Reason: TITRATE PER MD ORDER Last Titration: 09/20/16 11:30 Dose: 0 mcg/kg/min, 0 mls/hr Norepinephrine Bitartrate 8 mg (/ Sodium Chloride) 258 mls @ 7.74 mls/hr IV .Q24H PRN; Protocol; 4 MCG/MIN PRN Reason: TITRATE PER MD ORDER Last Admin: 09/24/16 19:22 Dose: 5.83 mcg/min, 11.3 mls/hr Vasopressin 40 units/ Sodium (Chloride) 40 mls @ 1.2 mls/hr IV .Q24H [facility]; 0.02 UNITS/MIN PRN Reason: Protocol Last Admin: 09/25/16 09:20 Dose: Not Given Sodium Chloride (Sodium Chloride 0.45%) 1,000 mls @ 125 mls/hr IV .Q8H [facility] Last Admin: 09/25/16 07:56 Dose: Not Given Pantoprazole Sodium (Protonix Inj) 40 mg IVP DAILY [facility] Last Admin: 09/25/16 09:22 Dose: 40 mg Sodium Polystyrene Sulfonate (Kayexalate Oral Susp) 30 gm PO Q6H [facility] Last Admin: 09/25/16 07:55 Dose: Not Given - Labs Labs: 09/25/16 06:30 09/25/16 06:30 PT 17.3 SECONDS (9.7-12.2) H 09/21/16 06:12 INR 1.5 09/21/16 06:12 APTT 28 SECONDS (21-34) D 09/21/16 06:12 - Constitutional Appears: Non-toxic, No Acute Distress, Chronically Ill - Head Exam Additional comments: hematoma over frontal scalp no gag reflex - Eye Exam Pupil Exam: Mydriatic. absent: PERRL Additional comments: dilated, unreactive - ENT Exam ENT Exam: Mucous Membranes Dry - Respiratory Exam Respiratory Exam: Decreased Breath Sounds, NORMAL BREATHING PATTERN. absent: Rales, Rhonchi, Wheezes - Cardiovascular Exam Cardiovascular Exam: REGULAR RHYTHM, +S1, +S2 - GI/Abdominal Exam GI & Abdominal Exam: Soft, Normal Bowel Sounds. absent: Distended, Firm, Guarding, Rigid, Tenderness - Extremities Exam Extremities Exam: absent: Pedal Edema, Tenderness - Neurological Exam Neurological Exam: absent: Alert, Awake, Oriented x3 - Skin Skin Exam: Dry, Normal Color, Warm Assessment and Plan (1) Subarachnoid bleed Status: Acute (2) Cardiopulmonary arrest Status: Acute (3) Cocaine overdose Status: Acute (4) Heroin overdose Status: Acute (5) Anoxic brain injury Status: Acute (6) Cerebral edema Status: Acute (7) Metabolic acidosis Status: Acute (8) Hypernatremia Status: Acute (9) Hepatitis C antibody positive in blood Status: Acute - Assessment and Plan (Free Text) Assessment: Protnix 40mg IV q daily for GI ppx Contraindications to VTE ppx secondary to subarachnoid bleed f/u sharing network regarding Hepatitis C positive in blood-->discussed with charge nurse, patient is not a candidate based on multiorgan failure. Brain flow confirmed: absence flow today. Patient set for terminal extubation for later this afternoon.
--- NOTE | 2016-09-25 09:31 | CP.PCM.PN ---
Subjective - Date & Time of Evaluation Date of Evaluation: 09/25/16 Time of Evaluation: 09:20 Objective - Vital Signs/Intake and Output Vital Signs (last 24 hours): Temp Pulse Resp BP Pulse Ox 98.7 F 86 24 117/62 100 09/25/16 04:00 09/25/16 06:00 09/25/16 06:00 09/25/16 06:00 09/25/16 06:00 Intake and Output: 09/25/16 09/25/16 06:59 18:59 Intake Total 1635.6 Output Total 1900 Balance -264.4 - Medications Medications: Current Medications Propofol (Diprivan) 100 mls @ 2.722 mls/hr IV .Q24H PRN; Protocol; 5 MCG/KG/MIN PRN Reason: TITRATE PER MD ORDER Last Titration: 09/20/16 11:30 Dose: 0 mcg/kg/min, 0 mls/hr Norepinephrine Bitartrate 8 mg (/ Sodium Chloride) 258 mls @ 7.74 mls/hr IV .Q24H PRN; Protocol; 4 MCG/MIN PRN Reason: TITRATE PER MD ORDER Last Admin: 09/24/16 19:22 Dose: 5.83 mcg/min, 11.3 mls/hr Vasopressin 40 units/ Sodium (Chloride) 40 mls @ 1.2 mls/hr IV .Q24H ASTER; 0.02 UNITS/MIN PRN Reason: Protocol Last Admin: 09/25/16 09:20 Dose: Not Given Sodium Chloride (Sodium Chloride 0.45%) 1,000 mls @ 125 mls/hr IV .Q8H [facility] Last Admin: 09/25/16 07:56 Dose: Not Given Pantoprazole Sodium (Protonix Inj) 40 mg IVP DAILY [facility] Last Admin: 09/25/16 09:22 Dose: 40 mg Sodium Polystyrene Sulfonate (Kayexalate Oral Susp) 30 gm PO Q6H [facility] Last Admin: 09/25/16 07:55 Dose: Not Given - Labs Labs: 09/25/16 06:30 09/25/16 06:30 PT 17.3 SECONDS (9.7-12.2) H 09/21/16 06:12 INR 1.5 09/21/16 06:12 APTT 28 SECONDS (21-34) D 09/21/16 06:12 Assessment and Plan (1) Subarachnoid bleed Status: Acute (2) Cardiopulmonary arrest Status: Acute (3) Cocaine overdose Status: Acute (4) Heroin overdose Status: Acute (5) Anoxic brain injury Status: Acute (6) Cerebral edema Status: Acute (7) Metabolic acidosis Status: Acute
--- NOTE | 2016-09-25 10:17 | RAD ---
HISTORY: intubated COMPARISON: 09/24/2016 FINDINGS: LUNGS: Lines and tubes in stable position. Small to moderate bilateral pleural effusions. Confluent airspace opacities in the mid to lower lung zones. Patchy nodularity at the lateral aspect of the right midlung zone. PLEURA: As above. CARDIOVASCULAR: Normal. OSSEOUS STRUCTURES: No significant abnormalities. VISUALIZED UPPER ABDOMEN: Normal. OTHER FINDINGS: None. IMPRESSION: Lines and tubes in stable position. Small to moderate bilateral pleural effusions. Confluent airspace opacities in the mid to lower lung zones. Patchy nodularity at the lateral aspect of the right midlung zone.
--- NOTE | 2016-09-25 10:22 | EEG ---
DATE: 09/24/2016 The record is obtained for a history of severe encephalopathy, status post cardiorespiratory arrest. The patient is ____ currently on ventilator, and his pupils are fixed, dilated, and there is no move ment. He is currently on vasopressors of norepinephrine to increase his blood pressure and vasopress in. The patient has a history of subarachnoid hemorrhage and prolonged cardiopulmonary arrest. The patient's EEG is performed while the patient was comatose in deep coma. The record was significa nt for electrocerebral silence throughout the record, and there were not any remarkable waves, and th ere were only mechanical artifacts by the ventilator and EKG artifacts. The photic stimulation was p erformed and did not produce any changes. In sum, this is an abnormal record, significant for electrocerebral silence, which might be consisten t with brain . Clinical correlation is recommended. Regina Alexis MD cc: [id number] TT: 09/25/2016 08:57:39 Confirmation # [id number] Dictation # [id number] selena
--- NOTE | 2016-09-25 11:15 | CP.CCUPN ---
<Margaret Weinstein - Last Filed: 09/25/16 17:07> CCU Subjective - Physician Review Subjective (Free Text): Patient seen and examined at bedside. Vent Settings: FiO2 100, PEEP 5, Tvolume 500, RR 24. Currently on Levophed 5 units. Patient went for Cerebral Blood Flow Scan: Findings consistent with brain . Absence of cerebral blood flow. CCU Objective - Vital Signs / Intake & Output Vital Signs (Last 4 hours): Vital Signs Pulse Resp BP Pulse Ox 09/25/16 09:57 82 23 118/75 100 09/25/16 08:57 82 24 121/62 100 09/25/16 07:57 80 24 116/64 100 Intake and Output (Last 8hrs): Intake & Output 09/24/16 09/25/16 09/25/16 22:59 06:59 14:59 Intake Total 1090.4 1090.4 681.5 Output Total 1600 1200 700 Balance -509.6 -109.6 -18.5 Weight 198 lb Intake: Intake, IV Amount 1090.4 1090.4 681.5 Left Distal Port Femoral 90.4 90.4 56.5 Left Proximal Port 1000 1000 625 Oral 0 Output: Urine 1450 1200 700 Urethral (Price) 1450 1200 700 Urine/Stool Mix 150 Other: # Bowel Movements 1 - Physical Exam Head: Positive for: Normocephalic Pupils: Positive for: Non-Reactive - Medications Active Medications: Active Medications Generic Name Dose Route Start Last Admin Trade Name Freq PRN Reason Stop Dose Admin Propofol 100 mls @ 2.722 mls/hr 09/20/16 09:12 09/20/16 11:30 Diprivan IV 0 mcg/kg/min .Q24H PRN 0 mls/hr TITRATE PER MD ORDER Titration Protocol 5 MCG/KG/MIN Norepinephrine Bitartrate 8 mg 258 mls @ 7.74 mls/hr 09/20/16 14:02 09/24/16 19:22 / Sodium Chloride IV 5.83 mcg/min .Q24H PRN 11.3 mls/hr TITRATE PER MD ORDER Administration Protocol 4 MCG/MIN Vasopressin 40 units/ Sodium 40 mls @ 1.2 mls/hr 09/21/16 09:00 09/25/16 09: 20 Chloride IV Not Given .Q24H [facility]ER Protocol 0.02 UNITS/MIN Sodium Chloride 1,000 mls @ 125 mls/hr 09/23/16 22:45 09/25/16 07:56 Sodium Chloride 0.45% IV Not Given .Q8H ASTER Pantoprazole Sodium 40 mg 09/20/16 14:00 09/25/16 09:22 Protonix Inj IVP 40 mg DAILY ASTER Administration Sodium Polystyrene Sulfonate 30 gm 09/21/16 18:30 09/25/16 07:55 Kayexalate Oral Susp PO Not Given Q6H ASTER - Patient Studies Lab Studies: Microbiology Studies 09/20/16 07:30 Blood Culture - Final Blood NO GROWTH AFTER 5 DAYS Gram Stain - Final TEST NOT PERFORMED 09/20/16 07:00 Blood Culture - Final Blood NO GROWTH AFTER 5 DAYS Gram Stain - Final TEST NOT PERFORMED Lab Studies 09/25/16 09/25/16 Range/Units 06:30 06:30 WBC 7.1 (4.8-10.8) K/uL RBC 3.26 L (4.40-5.90) Mil/uL Hgb 10.1 L (12.0-18.0) g/dL Hct 31.3 L (35.0-51.0) % MCV 96.1 H (80.0-94.0) fL MCH 31.1 H (27.0-31.0) pg MCHC 32.3 L (33.0-37.0) g/dL RDW 14.9 H (11.5-14.5) % Plt Count 51 L (130-400) K/uL MPV 9.2 (7.2-11.7) fL Neut % (Auto) 66.3 (50.0-75.0) % Lymph % (Auto) 25.0 (20.0-40.0) % [place] % (Auto) 7.0 (0.0-10.0) % Eos % (Auto) 1.3 (0.0-4.0) % Baso % (Auto) 0.4 (0.0-2.0) % Neut # 4.7 (1.8-7.0) K/uL Lymph # 1.8 (1.0-4.3) K/uL [place] # 0.5 (0.0-0.8) K/uL Eos # 0.1 (0.0-0.7) K/uL Baso # 0.0 (0.0-0.2) K/uL Sodium 158 H (132-148) mmol/L Potassium 4.5 (3.6-5.2) mmol/L Chloride 124 H (98-107) mmol/L Carbon Dioxide 24 (22-30) mmol/L Anion Gap 15 (10-20) BUN 47 H (9-20) mg/dL Creatinine 4.0 H (0.8-1.5) MG/DL Est GFR ( Amer) 20 Est GFR (Non-Af Amer) 16 Random Glucose 86 (75-110) mg/dL Calcium 8.0 L (8.6-10.4) mg/dl Phosphorus 2.7 (2.5-4.5) mg/dL Magnesium 2.1 (1.6-2.3) mg/dL Total Bilirubin 4.7 H (0.2-1.3) mg/dL AST 247 H D (17-59) U/L ALT 1028 H (21-72) U/L Alkaline Phosphatase 106 (38-126) U/L Total Protein 5.7 L (6.3-8.3) g/dL Albumin 2.5 L (3.5-5.0) g/dL Globulin 3.2 (2.2-3.9) gm/dL Albumin/Globulin Ratio 0.8 L (1.0-2.1) Laboratory Results - last 24 hr 09/25/16 09/25/16 06:30 06:30 WBC 7.1 RBC 3.26 L Hgb 10.1 L Hct 31.3 L MCV 96.1 H MCH 31.1 H MCHC 32.3 L RDW 14.9 H Plt Count 51 L MPV 9.2 Neut % (Auto) 66.3 Lymph % (Auto) 25.0 [place] % (Auto) 7.0 Eos % (Auto) 1.3 Baso % (Auto) 0.4 Neut # 4.7 Lymph # 1.8 [place] # 0.5 Eos # 0.1 Baso # 0.0 Sodium 158 H Potassium 4.5 Chloride 124 H Carbon Dioxide 24 Anion Gap 15 BUN 47 H Creatinine 4.0 H Est GFR ( Amer) 20 Est GFR (Non-Af Amer) 16 Random Glucose 86 Calcium 8.0 L Phosphorus 2.7 Magnesium 2.1 Total Bilirubin 4.7 H AST 247 H D ALT 1028 H Alkaline Phosphatase 106 Total Protein 5.7 L Albumin 2.5 L Globulin 3.2 Albumin/Globulin Ratio 0.8 L Assessment/Plan - Assessment and Plan (Free Text) Assessment: 46M with PMHx of heroine, cocaine abuse found unresponsive on 09/20/16 . Anoxic Brain Injury, Cardiopulmonary Arrest, Heroin Overdose, Cocaine Overdose, Diffuse subarachnoid hemorrhage, Diffuse cerebral edema, Severe metabolic acidosis Plan: S/P cardiopulmonary arrest, Anoxic Brain Injury * Upon arrival in the ICU, patient had a seizure- he was given ativan and started on a propofol drip. ABG revealed severe respiratory and metabolic acidosis, EK with 1st degree HB, ETT in place, no pneumothorax. Patient was unresponsive, pupils were fixed and dilated (equal), no corneal reflex, no gag reflex, no spontaneous respirations, patient is not breathing over the vent. * Currently on Levophed * Head CT showed: Diffuse subarachnoid hemorrhage with small localized clot or possibly small aneurysm in the region of the anterior communicating artery. Diffuse significant cerebral edema with effacement of sulci and compression of the ventricles. Cerebral edema also affects the posterior fossa structures with questionable tonsillar herniation. There may also be early significant hypoxic changes within the lateral basal nuclei bilaterally. * Hypothermia protocol was contraindicated due to subarachnoid hemorrhage * Neurology was consulted: Dr. Alexis - Cerebral Flow study ordered revealed: Bolus injection of technetium DTPA is of diagnostic quality. Flow was not evident above the brainstem. Findings of absent radionuclide confirmed on blood pool images. IMPRESSION: Limited assessment based on absence of delayed images. No supra tentorial blood flow was documented. Neurosurgery consulted - Dr. Farrell - no intervention at this time. * Palliative care was consulted, spoke with family, Goals of care will depend of brain flow test findings. Palliative care will follow up the patient and meet with his mother tomorrow who is traveling from [place] to offer support. * [facility] contacted- patient is Hepatitis C positive, f/u sharing network * Palliative care consulted * Currently on NS increased to 125 cc/hr, levophed 5 units * Cerebral blood flow Study: Findings consistent with brain . Absence of cerebral blood flow. Patient is a candidate for sharing network. DW Js Ibrahim DO, PGY-1 <Santiago Rodriguez S - Last Filed: 09/25/16 17:50> CCU Objective - Vital Signs / Intake & Output Vital Signs (Last 4 hours): Vital Signs Pulse Resp BP Pulse Ox 09/25/16 14:03 24 100 09/25/16 14:00 74 24 100 09/25/16 13:57 74 24 121/69 100 Intake and Output (Last 8hrs): Intake & Output 09/25/16 09/25/16 09/25/16 06:59 14:59 22:59 Intake Total 1090.4 1090.4 Output Total 1200 1700 Balance -109.6 -609.6 Weight 198 lb Intake: Intake, IV Amount 1090.4 1090.4 Left Distal Port Femoral 90.4 90.4 Left Proximal Port 1000 1000 Output: Urine 1200 1700 Urethral (Price) 1200 1700 - Medications Active Medications: Active Medications Generic Name Dose Route Start Last Admin Trade Name Freq PRN Reason Stop Dose Admin Propofol 100 mls @ 2.722 mls/hr 09/20/16 09:12 09/20/16 11:30 Diprivan IV 0 mcg/kg/min .Q24H PRN 0 mls/hr TITRATE PER MD ORDER Titration Protocol 5 MCG/KG/MIN Norepinephrine Bitartrate 8 mg 258 mls @ 7.74 mls/hr 09/20/16 14:02 09/24/16 19:22 / Sodium Chloride IV 5.83 mcg/min .Q24H PRN 11.3 mls/hr TITRATE PER MD ORDER Administration Protocol 4 MCG/MIN Vasopressin 40 units/ Sodium 40 mls @ 1.2 mls/hr 09/21/16 09:00 09/25/16 09: 20 Chloride IV Not Given .Q24H [facility]ER Protocol 0.02 UNITS/MIN Sodium Chloride 1,000 mls @ 125 mls/hr 09/23/16 22:45 09/25/16 14:26 Sodium Chloride 0.45% IV 125 mls/hr .Q8H [facility]ER Administration Pantoprazole Sodium 40 mg 09/20/16 14:00 09/25/16 09:22 Protonix Inj IVP 40 mg DAILY [facility]ER Administration Sodium Polystyrene Sulfonate 30 gm 09/21/16 18:30 09/25/16 12:46 Kayexalate Oral Susp PO Not Given Q6H [facility] - Patient Studies Lab Studies: Microbiology Studies 09/20/16 07:30 Blood Culture - Final Blood NO GROWTH AFTER 5 DAYS Gram Stain - Final TEST NOT PERFORMED 09/20/16 07:00 Blood Culture - Final Blood NO GROWTH AFTER 5 DAYS Gram Stain - Final TEST NOT PERFORMED Lab Studies 09/25/16 09/25/16 Range/Units 06:30 06:30 WBC 7.1 (4.8-10.8) K/uL RBC 3.26 L (4.40-5.90) Mil/uL Hgb 10.1 L (12.0-18.0) g/dL Hct 31.3 L (35.0-51.0) % MCV 96.1 H (80.0-94.0) fL MCH 31.1 H (27.0-31.0) pg MCHC 32.3 L (33.0-37.0) g/dL RDW 14.9 H (11.5-14.5) % Plt Count 51 L (130-400) K/uL MPV 9.2 (7.2-11.7) fL Neut % (Auto) 66.3 (50.0-75.0) % Lymph % (Auto) 25.0 (20.0-40.0) % [place] % (Auto) 7.0 (0.0-10.0) % Eos % (Auto) 1.3 (0.0-4.0) % Baso % (Auto) 0.4 (0.0-2.0) % Neut # 4.7 (1.8-7.0) K/uL Lymph # 1.8 (1.0-4.3) K/uL [place] # 0.5 (0.0-0.8) K/uL Eos # 0.1 (0.0-0.7) K/uL Baso # 0.0 (0.0-0.2) K/uL Sodium 158 H (132-148) mmol/L Potassium 4.5 (3.6-5.2) mmol/L Chloride 124 H (98-107) mmol/L Carbon Dioxide 24 (22-30) mmol/L Anion Gap 15 (10-20) BUN 47 H (9-20) mg/dL Creatinine 4.0 H (0.8-1.5) MG/DL Est GFR ( Amer) 20 Est GFR (Non-Af Amer) 16 Random Glucose 86 (75-110) mg/dL Calcium 8.0 L (8.6-10.4) mg/dl Phosphorus 2.7 (2.5-4.5) mg/dL Magnesium 2.1 (1.6-2.3) mg/dL Total Bilirubin 4.7 H (0.2-1.3) mg/dL AST 247 H D (17-59) U/L ALT 1028 H (21-72) U/L Alkaline Phosphatase 106 (38-126) U/L Total Protein 5.7 L (6.3-8.3) g/dL Albumin 2.5 L (3.5-5.0) g/dL Globulin 3.2 (2.2-3.9) gm/dL Albumin/Globulin Ratio 0.8 L (1.0-2.1) Laboratory Results - last 24 hr 09/25/16 09/25/16 06:30 06:30 WBC 7.1 RBC 3.26 L Hgb 10.1 L Hct 31.3 L MCV 96.1 H MCH 31.1 H MCHC 32.3 L RDW 14.9 H Plt Count 51 L MPV 9.2 Neut % (Auto) 66.3 Lymph % (Auto) 25.0 [place] % (Auto) 7.0 Eos % (Auto) 1.3 Baso % (Auto) 0.4 Neut # 4.7 Lymph # 1.8 [place] # 0.5 Eos # 0.1 Baso # 0.0 Sodium 158 H Potassium 4.5 Chloride 124 H Carbon Dioxide 24 Anion Gap 15 BUN 47 H Creatinine 4.0 H Est GFR ( Amer) 20 Est GFR (Non-Af Amer) 16 Random Glucose 86 Calcium 8.0 L Phosphorus 2.7 Magnesium 2.1 Total Bilirubin 4.7 H AST 247 H D ALT 1028 H Alkaline Phosphatase 106 Total Protein 5.7 L Albumin 2.5 L Globulin 3.2 Albumin/Globulin Ratio 0.8 L Attending/Attestation - Attestation I have personally seen and examined this patient.: Yes I have fully participated in the care of the patient.: Yes I have reviewed all pertinent clinical information: Yes Notes (Text): 09/25/16 17:47 Patient seen and examined in the intensive care unit. Clinical examination including brain stem reflexes and supraspinal motor responsive consistent with brain Apnea test, was not performed because of hypotension and on pressors Brain flow test consistent with Brain and EEG done showed no activity Patient terminally extubated after discussing with the neurologist
--- NOTE | 2016-09-25 12:31 | NM ---
PROCEDURE: Cerebral blood flow study HISTORY: s/p anoxic injury COMPARISON: 09/20/2016 TECHNIQUE: 21.2 mCi technetium 99 M DTPA administered via bolus technique, per institutional protocol. FINDINGS: Bullous documentation: Diagnostic new line flow identified and carotid arteries. Flow was not identified in the brain/cerebral cortices. IMPRESSION: Findings consistent with brain . Absence of cerebral blood flow.
--- NOTE | 2016-09-25 16:00 | CP.PCM.PN ---
Subjective - Date & Time of Evaluation Date of Evaluation: 09/25/16 Time of Evaluation: 15:51 - Subjective Subjective: Brain confirmed by the brain flow study. Objective - Vital Signs/Intake and Output Vital Signs (last 24 hours): Temp Pulse Resp BP Pulse Ox 99.3 F 74 24 121/69 100 09/25/16 12:00 09/25/16 14:00 09/25/16 14:03 09/25/16 13:57 09/25/16 14:03 Intake and Output: 09/25/16 09/25/16 06:59 18:59 Intake Total 1635.6 1090.4 Output Total 1900 1700 Balance -264.4 -609.6 - Medications Medications: Current Medications Propofol (Diprivan) 100 mls @ 2.722 mls/hr IV .Q24H PRN; Protocol; 5 MCG/KG/MIN PRN Reason: TITRATE PER MD ORDER Last Titration: 09/20/16 11:30 Dose: 0 mcg/kg/min, 0 mls/hr Norepinephrine Bitartrate 8 mg (/ Sodium Chloride) 258 mls @ 7.74 mls/hr IV .Q24H PRN; Protocol; 4 MCG/MIN PRN Reason: TITRATE PER MD ORDER Last Admin: 09/24/16 19:22 Dose: 5.83 mcg/min, 11.3 mls/hr Vasopressin 40 units/ Sodium (Chloride) 40 mls @ 1.2 mls/hr IV .Q24H [facility]ER; 0.02 UNITS/MIN PRN Reason: Protocol Last Admin: 09/25/16 09:20 Dose: Not Given Sodium Chloride (Sodium Chloride 0.45%) 1,000 mls @ 125 mls/hr IV .Q8H [facility]ER Last Admin: 09/25/16 14:26 Dose: 125 mls/hr Pantoprazole Sodium (Protonix Inj) 40 mg IVP DAILY [facility] Last Admin: 09/25/16 09:22 Dose: 40 mg Sodium Polystyrene Sulfonate (Kayexalate Oral Susp) 30 gm PO Q6H [facility]ER Last Admin: 09/25/16 12:46 Dose: Not Given - Labs Labs: 09/25/16 06:30 09/25/16 06:30 PT 17.3 SECONDS (9.7-12.2) H 09/21/16 06:12 INR 1.5 09/21/16 06:12 APTT 28 SECONDS (21-34) D 09/21/16 06:12 - Constitutional Appears: Chronically Ill - Head Exam Head Exam: ATRAUMATIC, NORMAL INSPECTION, NORMOCEPHALIC - Eye Exam Pupil Exam: Fixed - ENT Exam ENT Exam: Mucous Membranes Dry - Neck Exam Neck Exam: Normal Inspection - Respiratory Exam Additional comments: On MV - Cardiovascular Exam Cardiovascular Exam: Tachycardia Additional comments: On vasopressors - GI/Abdominal Exam GI & Abdominal Exam: Hypoactive Bowel Sounds - Rectal Exam Rectal Exam: Deferred - Extremities Exam Extremities Exam: Normal Inspection - Back Exam Back Exam: NORMAL INSPECTION - Neurological Exam Neurological Exam: Motor Sensory Deficit Neuro motor strength exam: Left Upper Extremity: 0, Right Upper Extremity: 0, Left Lower Extremity: 0, Right Lower Extremity: 0 - Psychiatric Exam Psychiatric exam: Flat Affect - Skin Skin Exam: Pallor Assessment and Plan - Assessment and Plan (Free Text) Assessment: Brain flow study confirmed brain . Patient's mother Agnes was at bed side. She was expecting the result but I am sure wanted to hear different one. Very gently I broke the news. Doctor Js was present, I asked her for support. Mother cried. Shakira's sister and family friend were there as well. Mother was asking if there was anything else we could do. In simple words I explained the neurological deficit found on admission; especially the fixed pupils and absent gag reflex. I explained the role of brain in directing our vital functions. I supported our findings by the numeral test confirming brain . Mother asked questions about the next steps. I suggested they stay alone with patient to say final good bye, bring in the close friends and relatives to do so and to go home and start planning. We all agree that patient should be handled with a lot of dignity and that only close relatives should be allowed to see him in this condition. Impression * Patient's confirmed by the brain flow study Suggestion * [place] protocol for brain patients * Support family
[2016-09-25 18:05] VITALS: TEMP 98.3
[2016-09-25 18:06] VITALS: BP 124/69; PULSE 24; RESP 0; O2SAT 25
--- NOTE | 2016-09-25 18:23 | CP.PCM.DIS ---
<JsMargaret - Last Filed: 09/25/16 18:31> Provider - Provider Date of Admission: 09/20/16 06:07 Attending physician: Erasmo Pascal MD Time Spent in preparation of Discharge (in minutes): 35 Hospital Course - Lab Results Lab Results: Micro Results 09/20/16 07:30 Blood Blood Culture - Final NO GROWTH AFTER 5 DAYS 09/20/16 07:30 Blood Gram Stain - Final TEST NOT PERFORMED 09/20/16 07:00 Blood Blood Culture - Final NO GROWTH AFTER 5 DAYS 09/20/16 07:00 Blood Gram Stain - Final TEST NOT PERFORMED 09/20/16 07:46 Nose MRSA Culture (Admit) - Final MRSA NOT DETECTED 09/20/16 07:18 Urine,Catheterized Urine Culture - Final No Growth (<1,000 CFU/ML) Most Recent Lab Values WBC 7.1 K/uL (4.8-10.8) 09/25/16 06:30 RBC 3.26 Mil/uL (4.40-5.90) L 09/25/16 06:30 Hgb 10.1 g/dL (12.0-18.0) L 09/25/16 06:30 Hct 31.3 % (35.0-51.0) L 09/25/16 06:30 MCV 96.1 fL (80.0-94.0) H 09/25/16 06:30 MCH 31.1 pg (27.0-31.0) H 09/25/16 06:30 MCHC 32.3 g/dL (33.0-37.0) L 09/25/16 06:30 RDW 14.9 % (11.5-14.5) H 09/25/16 06:30 Plt Count 51 K/uL (130-400) L 09/25/16 06:30 MPV 9.2 fL (7.2-11.7) 09/25/16 06:30 Neut % (Auto) 66.3 % (50.0-75.0) 09/25/16 06:30 Lymph % (Auto) 25.0 % (20.0-40.0) 09/25/16 06:30 [place] % (Auto) 7.0 % (0.0-10.0) 09/25/16 06:30 Eos % (Auto) 1.3 % (0.0-4.0) 09/25/16 06:30 Baso % (Auto) 0.4 % (0.0-2.0) 09/25/16 06:30 Neut # 4.7 K/uL (1.8-7.0) 09/25/16 06:30 Lymph # 1.8 K/uL (1.0-4.3) 09/25/16 06:30 [place] # 0.5 K/uL (0.0-0.8) 09/25/16 06:30 Eos # 0.1 K/uL (0.0-0.7) 09/25/16 06:30 Baso # 0.0 K/uL (0.0-0.2) 09/25/16 06:30 Neutrophils % (Manual) 63 % (50-75) 09/22/16 05:58 Band Neutrophils % 26 % (0-2) H* 09/22/16 05:58 Lymphocytes % (Manual) 7 % (20-40) L 09/22/16 05:58 Monocytes % (Manual) 3 % (0-10) 09/22/16 05:58 Metamyelocytes % 1 % (0-0) H 09/22/16 05:58 Differential Comment 09/20/16 05:15 Toxic Granulation Present 09/22/16 05:58 Platelet Estimate Decreased (NORMAL) L 09/22/16 05:58 Large Platelets Present 09/22/16 05:58 Polychromasia Slight 09/22/16 05:58 Hypochromasia (manual) Slight 09/22/16 05:58 Poikilocytosis (manual Slight 09/22/16 05:58 Anisocytosis (manual) Slight 09/22/16 05:58 Ovalocytes Slight 09/22/16 05:58 Giorgi Cells Slight 09/22/16 05:58 PT 17.3 SECONDS (9.7-12.2) H 09/21/16 06:12 INR 1.5 09/21/16 06:12 APTT 28 SECONDS (21-34) D 09/21/16 06:12 Puncture Site Rra 09/24/16 11:08 pCO2 29 mm/Hg (35-45) L 09/24/16 11:08 pO2 85 mm/Hg (80-100) 09/24/16 11:08 HCO3 22.9 mmol/L (21-28) 09/24/16 11:08 ABG pH 7.46 (7.35-7.45) H 09/24/16 11:08 ABG Total CO2 21.5 mmol/L (22-28) L 09/24/16 11:08 ABG O2 Saturation 98.3 % (95-98) H 09/24/16 11:08 ABG Base Excess -2.6 mmol/L (-2.0-3.0) L 09/24/16 11:08 ABG Hemoglobin 8.8 g/dL (11.7-17.4) L 09/24/16 11:08 ABG Carboxyhemoglobin 1.1 % (0.5-1.5) 09/24/16 11:08 POC ABG HHb (Measured) 1.7 % (0.0-5.0) 09/24/16 11:08 ABG Methemoglobin 0.7 % (0.0-3.0) 09/24/16 11:08 Sukhi Test Po 09/24/16 11:08 ABG Potassium 4.9 mmol/L (3.6-5.2) 09/20/16 05:05 VBG pH 7.38 (7.32-7.43) 09/20/16 14:57 VBG pCO2 52 mmHg (40-60) 09/20/16 14:57 VBG HCO3 27.5 mmol/L 09/20/16 14:57 VBG Total CO2 32.4 mmol/L (22-28) H 09/20/16 14:57 VBG O2 Sat (Calc) 64.8 % (40-65) 09/20/16 14:57 VBG Base Excess 4.4 mmol/L (0.0-2.0) H 09/20/16 14:57 VBG Potassium 3.7 mmol/L (3.6-5.2) 09/20/16 14:57 A-a O2 Difference 592.0 mm/Hg 09/24/16 11:08 Respiratory Index 7.0 09/24/16 11:08 Hgb O2 Saturation 96.4 % (95.0-98.0) 09/24/16 11:08 Sodium 146.0 mmol/l (132-148) 09/20/16 14:57 Chloride 108.0 mmol/L (98-107) H 09/20/16 14:57 Glucose 151 mg/dl (75-110) H 09/20/16 14:57 Lactate 4.7 mmol/L (0.7-2.1) H* 09/20/16 14:57 Mechanical Rate 24 09/22/16 05:27 FiO2 100.0 % 09/24/16 11:08 Tidal Volume 500 09/24/16 11:08 PEEP 5 09/24/16 11:08 Crit Value Called To Dr. miramontes 09/20/16 14:57 Crit Value Called By Bry yadav 09/20/16 14:57 Crit Value Read Back Y 09/20/16 14:57 Blood Gas Notified Time 1500 09/20/16 14:57 Sodium 158 mmol/L (132-148) H 09/25/16 06:30 Potassium 4.5 mmol/L (3.6-5.2) 09/25/16 06:30 Chloride 124 mmol/L (98-107) H 09/25/16 06:30 Carbon Dioxide 24 mmol/L (22-30) 09/25/16 06:30 Anion Gap 15 (10-20) 09/25/16 06:30 BUN 47 mg/dL (9-20) H 09/25/16 06:30 Creatinine 4.0 MG/DL (0.8-1.5) H 09/25/16 06:30 Est GFR ( Amer) 20 09/25/16 06:30 Est GFR (Non-Af Amer) 16 09/25/16 06:30 POC Glucose (mg/dL) 199 mg/dL (65-110) H 09/20/16 07:01 Random Glucose 86 mg/dL (75-110) 09/25/16 06:30 Hemoglobin A1c 6.6 % (4.2-6.5) H 09/20/16 14:56 Lactic Acid 1.2 mmol/L (0.7-2.1) 09/23/16 12:01 Calcium 8.0 mg/dl (8.6-10.4) L 09/25/16 06:30 Ionized Calcium 4.4 mg/dL (4.80-5.60) L 09/20/16 20:10 Phosphorus 2.7 mg/dL (2.5-4.5) 09/25/16 06:30 Magnesium 2.1 mg/dL (1.6-2.3) 09/25/16 06:30 Total Bilirubin 4.7 mg/dL (0.2-1.3) H 09/25/16 06:30 AST 247 U/L (17-59) H D 09/25/16 06:30 ALT 1028 U/L (21-72) H 09/25/16 06:30 Alkaline Phosphatase 106 U/L (38-126) 09/25/16 06:30 Total Creatine Kinase 2464 U/L (55-170) H 09/23/16 23:35 CK-MB (Mass) 9.87 ng/mL (0.0-3.38) H 09/23/16 23:35 Troponin I 0.2500 ng/mL (0.00-0.120) H* 09/23/16 06:29 Troponin I, Quant 0.1960 ng/mL (0.00-0.120) H* 09/23/16 23:35 Total Protein 5.7 g/dL (6.3-8.3) L 09/25/16 06:30 Albumin 2.5 g/dL (3.5-5.0) L 09/25/16 06:30 Globulin 3.2 gm/dL (2.2-3.9) 09/25/16 06:30 Albumin/Globulin Ratio 0.8 (1.0-2.1) L 09/25/16 06:30 Arterial Blood Potassium 4.9 mmol/L (3.6-5.2) 09/20/16 05:05 Venous Blood Potassium 3.7 mmol/L (3.6-5.2) 09/20/16 14:57 Urine Color Yellow (YELLOW) 09/20/16 05:15 Urine Clarity Hazy (Clear) 09/20/16 05:15 Urine pH 5.0 (5.0-8.0) 09/20/16 05:15 Ur Specific Lav[place] 1.025 (1.003-1.030) 09/20/16 05:15 Urine Protein 2+ mg/dL (NEGATIVE) H 09/20/16 05:15 Urine Glucose (UA) Normal mg/dL (Normal) 09/20/16 05:15 Urine Ketones Negative mg/dL (NEGATIVE) 09/20/16 05:15 Urine Blood Negative (NEGATIVE) 09/20/16 05:15 Urine Nitrate Negative (NEGATIVE) 09/20/16 05:15 Urine Bilirubin Negative (NEGATIVE) 09/20/16 05:15 Urine Urobilinogen Normal mg/dL (0.2-1.0) 09/20/16 05:15 Ur Leukocyte Esterase Neg Marcy/uL (Negative) 09/20/16 05:15 Urine WBC (Auto) 8 /hpf (0-5) H 09/20/16 05:15 Urine RBC (Auto) 31 /hpf (0-3) H 09/20/16 05:15 Urine Bacteria Few (<OCC) H 09/20/16 05:15 Urine Sperm (Auto) Few /hpf (NONE) H 09/20/16 05:15 Urine Opiates Screen Positive (NEGATIVE) 09/20/16 05:15 Urine Methadone Screen Negative (NEGATIVE) 09/20/16 05:15 Ur Barbiturates Screen Negative (NEGATIVE) 09/20/16 05:15 Ur Phencyclidine Scrn Negative (NEGATIVE) 09/20/16 05:15 Ur Amphetamines Screen Negative (NEGATIVE) 09/20/16 05:15 U Benzodiazepines Scrn Negative (NEGATIVE) 09/20/16 05:15 U Oth Cocaine Metabols Positive (NEGATIVE) 09/20/16 05:15 U Cannabinoids Screen Negative (NEGATIVE) 09/20/16 05:15 Alcohol, Quantitative < 10 mg/dl (0-10) 09/20/16 06:04 Hepatitis A IgM Ab Negative (NEGATIVE) 09/23/16 12:05 Hep Bs Antigen Negative (NEGATIVE) 09/23/16 12:05 Hep B Core IgM Ab Negative (NEGATIVE) 09/23/16 12:05 Hepatitis C Antibody Reactive (NEGATIVE) H 09/23/16 12:05 HIV 1&2 Antibody Screen Negative (NEGATIVE) 09/23/16 12:01 Blood Type O POSITIVE 09/20/16 17:59 Antibody Screen Negative 09/20/16 17:59 - Hospital Course Hospital Course: Upon Admission: 46 M with past medical history of opiates, cocaine, and cannabis use disorder who was admitted to the detox unit in 07/19. Patient was found unresponsive ( down time unknown) by his ex- shortly before 5 am this morning. EMS was called. Patient was found in asystole. Patient was intubated, given epinephrine , and Narcan out in the field and ROSC was achieved prior to arrival to the ED. Patient was accepted to the ICU. Upon arrival in the ICU, ABG revealed severe respiratory and metabolic acidosis, EK with 1st degree HB, ETT in place, no pneumothorax. Patient was unresponsive, pupils were fixed and dilated (equal) , no corneal reflex, no gag reflex, no spontaneous respirations, patient is not breathing over the vent. Throughout Hospital Course: Upon arrival in the ICU, patient had a seizure- he was given ativan and started on a propofol drip. ABG revealed severe respiratory and metabolic acidosis, EKG : 82 with 1st degree HB, ETT in place, no pneumothorax. Patient was unresponsive , pupils were fixed and dilated (equal), no corneal reflex, no gag reflex, no spontaneous respirations, patient is not breathing over the vent. Head CT showed: Diffuse subarachnoid hemorrhage with small localized clot or possibly small aneurysm in the region of the anterior communicating artery. Diffuse significant cerebral edema with effacement of sulci and compression of the ventricles. Cerebral edema also affects the posterior fossa structures with questionable tonsillar herniation. There may also be early significant hypoxic changes within the lateral basal nuclei bilaterally. Neurology was consulted: Dr. Alexis - Cerebral Flow study ordered revealed: Bolus injection of technetium DTPA is of diagnostic quality. Flow was not evident above the brainstem. Findings of absent radionuclide confirmed on blood pool images. IMPRESSION:Limited assessment based on absence of delayed images. No supra tentorial blood flow was documented. Neurosurgery consulted - Dr. Farrell - no intervention at this time. [facility] contacted- patient is Hepatitis C positive, patient not a candidate due to multi organ failure. Cerebral blood flow Study: Findings consistent with brain . Absence of cerebral blood flow. Patient is a candidate for sharing network. Patient was terminally extubated. Discharge Exam - Head Exam Additional comments: Discharge Plan - Follow Up Plan Condition: Disposition: WITH WITHOUT AUTOPSY <Donita Atkinson Keyshawn - Last Filed: 09/25/16 19:43> Provider - Provider Date of Admission: 09/20/16 06:07 Attending physician: Erasmo Pascal MD Diagnosis - Discharge Diagnosis (1) Subarachnoid bleed Status: Acute (2) Cardiopulmonary arrest Status: Acute (3) Cocaine overdose Status: Acute (4) Heroin overdose Status: Acute (5) Anoxic brain injury Status: Acute (6) Cerebral edema Status: Acute (7) Metabolic acidosis Status: Acute (8) Hypernatremia Status: Acute (9) Hepatitis C antibody positive in blood Status: Acute Hospital Course - Lab Results Lab Results: Micro Results 09/20/16 07:30 Blood Blood Culture - Final NO GROWTH AFTER 5 DAYS 09/20/16 07:30 Blood Gram Stain - Final TEST NOT PERFORMED 09/20/16 07:00 Blood Blood Culture - Final NO GROWTH AFTER 5 DAYS 09/20/16 07:00 Blood Gram Stain - Final TEST NOT PERFORMED 09/20/16 07:46 Nose MRSA Culture (Admit) - Final MRSA NOT DETECTED 09/20/16 07:18 Urine,Catheterized Urine Culture - Final No Growth (<1,000 CFU/ML) Most Recent Lab Values WBC 7.1 K/uL (4.8-10.8) 09/25/16 06:30 RBC 3.26 Mil/uL (4.40-5.90) L 09/25/16 06:30 Hgb 10.1 g/dL (12.0-18.0) L 09/25/16 06:30 Hct 31.3 % (35.0-51.0) L 09/25/16 06:30 MCV 96.1 fL (80.0-94.0) H 09/25/16 06:30 MCH 31.1 pg (27.0-31.0) H 09/25/16 06:30 MCHC 32.3 g/dL (33.0-37.0) L 09/25/16 06:30 RDW 14.9 % (11.5-14.5) H 09/25/16 06:30 Plt Count 51 K/uL (130-400) L 09/25/16 06:30 MPV 9.2 fL (7.2-11.7) 09/25/16 06:30 Neut % (Auto) 66.3 % (50.0-75.0) 09/25/16 06:30 Lymph % (Auto) 25.0 % (20.0-40.0) 09/25/16 06:30 [place] % (Auto) 7.0 % (0.0-10.0) 09/25/16 06:30 Eos % (Auto) 1.3 % (0.0-4.0) 09/25/16 06:30 Baso % (Auto) 0.4 % (0.0-2.0) 09/25/16 06:30 Neut # 4.7 K/uL (1.8-7.0) 09/25/16 06:30 Lymph # 1.8 K/uL (1.0-4.3) 09/25/16 06:30 [place] # 0.5 K/uL (0.0-0.8) 09/25/16 06:30 Eos # 0.1 K/uL (0.0-0.7) 09/25/16 06:30 Baso # 0.0 K/uL (0.0-0.2) 09/25/16 06:30 Neutrophils % (Manual) 63 % (50-75) 09/22/16 05:58 Band Neutrophils % 26 % (0-2) H* 09/22/16 05:58 Lymphocytes % (Manual) 7 % (20-40) L 09/22/16 05:58 Monocytes % (Manual) 3 % (0-10) 09/22/16 05:58 Metamyelocytes % 1 % (0-0) H 09/22/16 05:58 Differential Comment 09/20/16 05:15 Toxic Granulation Present 09/22/16 05:58 Platelet Estimate Decreased (NORMAL) L 09/22/16 05:58 Large Platelets Present 09/22/16 05:58 Polychromasia Slight 09/22/16 05:58 Hypochromasia (manual) Slight 09/22/16 05:58 Poikilocytosis (manual Slight 09/22/16 05:58 Anisocytosis (manual) Slight 09/22/16 05:58 Ovalocytes Slight 09/22/16 05:58 Giorgi Cells Slight 09/22/16 05:58 PT 17.3 SECONDS (9.7-12.2) H 09/21/16 06:12 INR 1.5 09/21/16 06:12 APTT 28 SECONDS (21-34) D 09/21/16 06:12 Puncture Site Rra 09/24/16 11:08 pCO2 29 mm/Hg (35-45) L 09/24/16 11:08 pO2 85 mm/Hg (80-100) 09/24/16 11:08 HCO3 22.9 mmol/L (21-28) 09/24/16 11:08 ABG pH 7.46 (7.35-7.45) H 09/24/16 11:08 ABG Total CO2 21.5 mmol/L (22-28) L 09/24/16 11:08 ABG O2 Saturation 98.3 % (95-98) H 09/24/16 11:08 ABG Base Excess -2.6 mmol/L (-2.0-3.0) L 09/24/16 11:08 ABG Hemoglobin 8.8 g/dL (11.7-17.4) L 09/24/16 11:08 ABG Carboxyhemoglobin 1.1 % (0.5-1.5) 09/24/16 11:08 POC ABG HHb (Measured) 1.7 % (0.0-5.0) 09/24/16 11:08 ABG Methemoglobin 0.7 % (0.0-3.0) 09/24/16 11:08 Sukhi Test Po 09/24/16 11:08 ABG Potassium 4.9 mmol/L (3.6-5.2) 09/20/16 05:05 VBG pH 7.38 (7.32-7.43) 09/20/16 14:57 VBG pCO2 52 mmHg (40-60) 09/20/16 14:57 VBG HCO3 27.5 mmol/L 09/20/16 14:57 VBG Total CO2 32.4 mmol/L (22-28) H 09/20/16 14:57 VBG O2 Sat (Calc) 64.8 % (40-65) 09/20/16 14:57 VBG Base Excess 4.4 mmol/L (0.0-2.0) H 09/20/16 14:57 VBG Potassium 3.7 mmol/L (3.6-5.2) 09/20/16 14:57 A-a O2 Difference 592.0 mm/Hg 09/24/16 11:08 Respiratory Index 7.0 09/24/16 11:08 Hgb O2 Saturation 96.4 % (95.0-98.0) 09/24/16 11:08 Sodium 146.0 mmol/l (132-148) 09/20/16 14:57 Chloride 108.0 mmol/L (98-107) H 09/20/16 14:57 Glucose 151 mg/dl (75-110) H 09/20/16 14:57 Lactate 4.7 mmol/L (0.7-2.1) H* 09/20/16 14:57 Mechanical Rate 24 09/22/16 05:27 FiO2 100.0 % 09/24/16 11:08 Tidal Volume 500 09/24/16 11:08 PEEP 5 09/24/16 11:08 Crit Value Called To Dr. miramontes 09/20/16 14:57 Crit Value Called By Bry yadav 09/20/16 14:57 Crit Value Read Back Y 09/20/16 14:57 Blood Gas Notified Time 1500 09/20/16 14:57 Sodium 158 mmol/L (132-148) H 09/25/16 06:30 Potassium 4.5 mmol/L (3.6-5.2) 09/25/16 06:30 Chloride 124 mmol/L (98-107) H 09/25/16 06:30 Carbon Dioxide 24 mmol/L (22-30) 09/25/16 06:30 Anion Gap 15 (10-20) 09/25/16 06:30 BUN 47 mg/dL (9-20) H 09/25/16 06:30 Creatinine 4.0 MG/DL (0.8-1.5) H 09/25/16 06:30 Est GFR ( Amer) 09/25/16 06:30 Est GFR (Non-Af Amer) 16 09/25/16 06:30 POC Glucose (mg/dL) 199 mg/dL (65-110) H 09/20/16 07:01 Random Glucose 86 mg/dL (75-110) 09/25/16 06:30 Hemoglobin A1c 6.6 % (4.2-6.5) H 09/20/16 14:56 Lactic Acid 1.2 mmol/L (0.7-2.1) 09/23/16 12:01 Calcium 8.0 mg/dl (8.6-10.4) L 09/25/16 06:30 Ionized Calcium 4.4 mg/dL (4.80-5.60) L 09/20/16 20:10 Phosphorus 2.7 mg/dL (2.5-4.5) 09/25/16 06:30 Magnesium 2.1 mg/dL (1.6-2.3) 09/25/16 06:30 Total Bilirubin 4.7 mg/dL (0.2-1.3) H 09/25/16 06:30 AST 247 U/L (17-59) H D 09/25/16 06:30 ALT 1028 U/L (21-72) H 09/25/16 06:30 Alkaline Phosphatase 106 U/L (38-126) 09/25/16 06:30 Total Creatine Kinase 2464 U/L (55-170) H 09/23/16 23:35 CK-MB (Mass) 9.87 ng/mL (0.0-3.38) H 09/23/16 23:35 Troponin I 0.2500 ng/mL (0.00-0.120) H* 09/23/16 06:29 Troponin I, Quant 0.1960 ng/mL (0.00-0.120) H* 09/23/16 23:35 Total Protein 5.7 g/dL (6.3-8.3) L 09/25/16 06:30 Albumin 2.5 g/dL (3.5-5.0) L 09/25/16 06:30 Globulin 3.2 gm/dL (2.2-3.9) 09/25/16 06:30 Albumin/Globulin Ratio 0.8 (1.0-2.1) L 09/25/16 06:30 Arterial Blood Potassium 4.9 mmol/L (3.6-5.2) 09/20/16 05:05 Venous Blood Potassium 3.7 mmol/L (3.6-5.2) 09/20/16 14:57 Urine Color Yellow (YELLOW) 09/20/16 05:15 Urine Clarity Hazy (Clear) 09/20/16 05:15 Urine pH 5.0 (5.0-8.0) 09/20/16 05:15 Ur Specific Lavina 1.025 (1.003-1.030) 09/20/16 05:15 Urine Protein 2+ mg/dL (NEGATIVE) H 09/20/16 05:15 Urine Glucose (UA) Normal mg/dL (Normal) 09/20/16 05:15 Urine Ketones Negative mg/dL (NEGATIVE) 09/20/16 05:15 Urine Blood Negative (NEGATIVE) 09/20/16 05:15 Urine Nitrate Negative (NEGATIVE) 09/20/16 05:15 Urine Bilirubin Negative (NEGATIVE) 09/20/16 05:15 Urine Urobilinogen Normal mg/dL (0.2-1.0) 09/20/16 05:15 Ur Leukocyte Esterase Neg Marcy/uL (Negative) 09/20/16 05:15 Urine WBC (Auto) 8 /hpf (0-5) H 09/20/16 05:15 Urine RBC (Auto) 31 /hpf (0-3) H 09/20/16 05:15 Urine Bacteria Few (<OCC) H 09/20/16 05:15 Urine Sperm (Auto) Few /hpf (NONE) H 09/20/16 05:15 Urine Opiates Screen Positive (NEGATIVE) 09/20/16 05:15 Urine Methadone Screen Negative (NEGATIVE) 09/20/16 05:15 Ur Barbiturates Screen Negative (NEGATIVE) 09/20/16 05:15 Ur Phencyclidine Scrn Negative (NEGATIVE) 09/20/16 05:15 Ur Amphetamines Screen Negative (NEGATIVE) 09/20/16 05:15 U Benzodiazepines Scrn Negative (NEGATIVE) 09/20/16 05:15 U Oth Cocaine Metabols Positive (NEGATIVE) 09/20/16 05:15 U Cannabinoids Screen Negative (NEGATIVE) 09/20/16 05:15 Alcohol, Quantitative < 10 mg/dl (0-10) 09/20/16 06:04 Hepatitis A IgM Ab Negative (NEGATIVE) 09/23/16 12:05 Hep Bs Antigen Negative (NEGATIVE) 09/23/16 12:05 Hep B Core IgM Ab Negative (NEGATIVE) 09/23/16 12:05 Hepatitis C Antibody Reactive (NEGATIVE) H 09/23/16 12:05 HIV 1&2 Antibody Screen Negative (NEGATIVE) 09/23/16 12:01 Blood Type O POSITIVE 09/20/16 17:59 Antibody Screen Negative 09/20/16 17:59 Attending/Attestation - Attestation I have personally seen and examined this patient.: Yes I have fully participated in the care of the patient.: Yes I have reviewed all pertinent clinical information, including history, physical exam and plan: Yes Notes (Text): Patient seen, examined, and case discussed with ICU. Brain flow study confirms brain ; absence of cerebral flow. Terminal extubation today. Family present at bedside. Patient this evening at 6:06PM on 09/25/16. Patient not candidate for sharing network due to multiorgan failure. EDRS completed and certified. This is a summary of patient's hospitalization. Please refer to EMR for further details.
--- NOTE | 2016-09-25 18:30 | CP.PCM.PRO ---
<Margaret Weinstein - Last Filed: 09/25/16 18:29> Pronouncement of Note - Clinical Findings Physical Exam: No Response Verbal/Painful Stimuli, Absent Peripheral Pulses{ Carotid & Femoral}, Absent Heart & Breath Sounds, No Pupillary Light Reflex, No Corneal Reflex, Pupils Fixed & Dilated, Absence of Vital Signs - Pronouncement Time Time of Pronouncement of : 18:06 - Notifications Pronouncement Notifications: Family Notified, Atending Notified Inclusion Teacher Notified: No - Autopsy Autopsy Requested: No - [place] [id number] <Donita Atkinson V - Last Filed: 09/25/16 19:44> Pronouncement of Note - [place] Additional Comments: Completed and certified. Attending/Attestation - Attestation I have personally seen and examined this patient.: Yes I have fully participated in the care of the patient.: Yes I have reviewed all pertinent clinical information: Yes
--- NOTE | 2016-09-25 19:58 | CP.PCM.PN ---
Subjective - Date & Time of Evaluation Date of Evaluation: 09/25/16 Time of Evaluation: 17:00 - Subjective Subjective: Paient has exoired Objective - Vital Signs/Intake and Output Vital Signs (last 24 hours): Temp Pulse Resp BP Pulse Ox 98.3 F 24 L 0 L 124/69 25 L 09/25/16 16:00 09/25/16 18:00 09/25/16 18:00 09/25/16 16:57 09/25/16 18:00 Intake and Output: 09/25/16 09/26/16 18:59 06:59 Intake Total 1499.3 Output Total 2300 Balance -800.7 - Medications Medications: Current Medications Propofol (Diprivan) 100 mls @ 2.722 mls/hr IV .Q24H PRN; Protocol; 5 MCG/KG/MIN PRN Reason: TITRATE PER MD ORDER Last Titration: 09/20/16 11:30 Dose: 0 mcg/kg/min, 0 mls/hr Norepinephrine Bitartrate 8 mg (/ Sodium Chloride) 258 mls @ 7.74 mls/hr IV .Q24H PRN; Protocol; 4 MCG/MIN PRN Reason: TITRATE PER MD ORDER Last Admin: 09/24/16 19:22 Dose: 5.83 mcg/min, 11.3 mls/hr Vasopressin 40 units/ Sodium (Chloride) 40 mls @ 1.2 mls/hr IV .Q24H ASTER; 0.02 UNITS/MIN PRN Reason: Protocol Last Admin: 09/25/16 09:20 Dose: Not Given Sodium Chloride (Sodium Chloride 0.45%) 1,000 mls @ 125 mls/hr IV .Q8H ASTER Last Admin: 09/25/16 14:26 Dose: 125 mls/hr Pantoprazole Sodium (Protonix Inj) 40 mg IVP DAILY ASTER Last Admin: 09/25/16 09:22 Dose: 40 mg Sodium Polystyrene Sulfonate (Kayexalate Oral Susp) 30 gm PO Q6H ASTER Last Admin: 09/25/16 12:46 Dose: Not Given - Labs Labs: 09/25/16 06:30 09/25/16 06:30 PT 17.3 SECONDS (9.7-12.2) H 09/21/16 06:12 INR 1.5 09/21/16 06:12 APTT 28 SECONDS (21-34) D 09/21/16 06:12 Assessment and Plan (1) Cardiopulmonary arrest with successful resuscitation Status: Acute (2) Drug overdose Status: Acute (3) Decorticate posturing Status: Acute (4) Hepatitis C antibody positive in blood Status: Acute
== END 2016-09-25 18:07 | DRG 917 ==
LOC: C.ER 04:45 → C.9I 06:07 → EDBD 06:07 → MERGE 06:07 → C.9I 06:39
PROVIDERS: ADMIT Internal Medicine; ATTEND Internal Medicine
PROC: 3E033XZ Introduction of Vasopressor into Peripheral Vein, Percutaneous Approach (ICD-10-PCS; principal; 2016-09-20)
PROC: 5A1955Z Respiratory Ventilation, Greater than 96 Consecutive Hours (ICD-10-PCS; 2016-09-20)
DX: T40.1X4A Poisoning by heroin, undetermined, initial encounter (principal); R40.20 Unspecified coma; G93.5 Compression of brain; G93.6 Cerebral edema; I60.9 Nontraumatic subarachnoid hemorrhage, unspecified; G93.1 Anoxic brain damage, not elsewhere classified; E87.4 Mixed disorder of acid-base balance; E87.2 Acidosis; I46.9 Cardiac arrest, cause unspecified; R09.02 Hypoxemia; R56.9 Unspecified convulsions; I67.1 Cerebral aneurysm, nonruptured; E87.5 Hyperkalemia; B19.20 Unspecified viral hepatitis C without hepatic coma; I46.8 Cardiac arrest due to other underlying condition; F12.90 Cannabis use, unspecified, uncomplicated; T40.5X4A Poisoning by cocaine, undetermined, initial encounter